=== PATIENT | male | born 1955 | race Caucasian/White ===

== ENCOUNTER → 2019-06-21 16:30 | Outpatient (BNVA) | payer MEDICARE, SELFPAY | PROVIDERS: Family Provider Family Medicine; PCP Family Medicine; Visit Provider Otolaryngology | DX: K21.9 Gastro-esophageal reflux disease without esophagitis (principal); R47.02 Dysphasia; R05 Cough; K22.2 Esophageal obstruction; F17.210 Nicotine dependence, cigarettes, uncomplicated | CPT/HCPCS: 99213; 99214 ==

== ENCOUNTER 2019-12-19 12:58 | Outpatient (CLI) | payer MEDICARE, SELFPAY ==
--- NOTE | 2019-12-19 13:04 | CT_ITS ---
WS: [id number] CT CHEST TECHNIQUE: Contrast enhanced CT of the chest with coronal and sagittal reformatted images. CLINICAL INFORMATION: CHEST PAIN ATYPICAL, COUGH, SMOKER COMPARISON: None. DLP: 746.[address] scans at [facility] use at least one of these dose optimization techniques: automat ed exposure control; mA and/or kV adjustment per patient size (includes targeted exams where dose is matched to clinical indication); or iterative reconstruction. FINDINGS: Mild chronic emphysematous changes. Lungs are well aerated. Slight bibasilar atelectasis. Calcified g ranuloma. No acute pulmonary infiltrates. No consolidation or pleural fluid. No suspicious pulmonary parenchymal abnormalities. Normal caliber thoracic aorta. Aortic calcification. Coronary calcification. No mediastinal or hilar lymphadenopathy. Thyroid gland appears normal. Normal endobronchial tree. No axillary lymphadenopathy . Adrenal glands are normal. Cholecystectomy clips. Fatty infiltration liver. Normal GE junction. Upper abdominal aorta appears normal. Mild thoracic curve with Schmorl's nodes in the mid and lower thorac ic spine. CT/CT chest w con* [id number] IMPRESSION: 1. Mild chronic emphysematous changes. No acute pulmonary infiltrates. 2. No suspicious pulmonary parenchymal abnormalities. 3. No mediastinal or hilar lymphadenopathy. 4. Normal thoracic aorta. 5. Mild diffuse fatty infiltration of the liver.
[2019-12-19 14:15] LABS: Blood Urea Nitrogen 13 mg/dL (8-23); Glomerular Filtration Rate 67.8 mL/min (90-130)
[2019-12-19] MEDS: iohexol 300 mg/mL 100 mL Btl IV (14:16)
== END 2019-12-19 12:59 | disposition home or self-care (01) ==
LOC: RADWPI 13:04
PROVIDERS: Family Provider Family Medicine; PCP Family Medicine; Visit Provider Family Medicine
DX: R07.89 Other chest pain (principal); R05 Cough; F17.200 Nicotine dependence, unspecified, uncomplicated; K76.0 Fatty (change of) liver, not elsewhere classified
CPT/HCPCS: 71260; 82565; 84520; Q9967

== ENCOUNTER 2020-09-17 13:50 | Outpatient (CLI) | payer MEDICARE, SELFPAY ==
--- NOTE | 2020-09-17 13:55 | CT_ITS ---
WS: [id number] CT CHEST TECHNIQUE: Contrast enhanced CT of the chest with coronal and sagittal reformatted images. CLINICAL INFORMATION: ATYPICAL CHEST PAIN/COUGH/SMOKER COMPARISON: None. DLP: 545.[address] scans at [facility] use at least one of these dose optimization techniques: automat ed exposure control; mA and/or kV adjustment per patient size (includes targeted exams where dose is matched to clinical indication); or iterative reconstruction. FINDINGS: Mild chronic emphysematous changes. No acute pulmonary infiltrates. Slight atelectasis in the lung ba ses. A few calcified granulomas. No focal pneumonia or pleural fluid. Normal caliber thoracic aorta. Aortic calcification. Proximal main pulmonary arteries are normal. No mediastinal or hilar lymphadenopathy. No axillary lymphadenopathy. Schmorl's nodes in the mid thoraci c spine with mild chronic anterior wedging. CT/CT chest w con* [id number] IMPRESSION: 1. Mild chronic emphysematous changes. No acute pulmonary infiltrates. 2. No suspicious pulmonary parenchymal abnormalities. 3. No mediastinal or hilar lymphadenopathy. 4. Diffuse fatty infiltration the liver. Cholecystectomy. 5. No other significant changes from previous.
[2020-09-17 14:46] LABS: Blood Urea Nitrogen 13 mg/dL (8-23); Glomerular Filtration Rate 75.5 mL/min (90-130)
[2020-09-17] MEDS: iohexol 300 mg/mL 100 mL Btl IV (15:00)
== END 2020-09-17 13:51 | disposition home or self-care (01) ==
LOC: CT 13:53
PROVIDERS: PCP Family Medicine; Visit Provider Family Medicine
DX: R05 Cough; F17.200 Nicotine dependence, unspecified, uncomplicated; R07.89 Other chest pain; K76.0 Fatty (change of) liver, not elsewhere classified; Z90.49 Acquired absence of other specified parts of digestive tract
CPT/HCPCS: 36415; 71260; 82565; 84520

== ENCOUNTER 2020-09-25 09:45 | Outpatient (CLI) | payer MEDICARE, SELFPAY ==
--- NOTE | 2020-09-25 10:00 | FL_ITS ---
WS: [id number] UPPER GI TECHNICAL: FLUOROSCOPY TIME: minutes CLINICAL INFORMATION: R47.02 - Dysphasia COMPARISON: None. FINDINGS: Swallowing: No aspiration or penetration. Esophagus: Moderate esophageal dysmotility with delayed emptying in the upright and supine positions. Evidence of reflux esophagitis. Gastroesophageal reflux: Marked reflux to the upper esophagus and hypopharynx. Stomach: Diffuse gastric rugal thickening consistent with gastritis. Normal stomach emptying. Small esophageal hiatal hernia. Duodenum: Normal duodenal C-loop. Other findings: Cholecystectomy. LA/LA upper GI series [id number] IMPRESSION: 1. Moderate esophageal dysmotility with delayed emptying upright and supine po sitions. 2. Evidence of reflux esophagitis and gastritis. 3. Small esophageal hiatal hernia. 4. Marked active reflux in the upper esophagus and hypopharynx the upright and supine positions. 5. Normal stomach emptying and normal duodenal C-loop.
== END 2020-09-25 09:46 | disposition home or self-care (01) ==
PROVIDERS: PCP Family Medicine; Visit Provider Surgery
DX: R47.02 Dysphasia (principal); K21.00 Gastro-esophageal reflux disease with esophagitis, without bleeding; K44.9 Diaphragmatic hernia without obstruction or gangrene; K29.70 Gastritis, unspecified, without bleeding
CPT/HCPCS: 74240

== ENCOUNTER → 2020-11-07 15:42 | Outpatient (BNVA) | payer MEDICARE, SELFPAY | PROVIDERS: PCP Family Medicine; Visit Provider Surgery | DX: Z01.812 Encounter for preprocedural laboratory examination (principal); Z20.822 Contact with and (suspected) exposure to COVID-19 | CPT/HCPCS: 87635 ==

== ENCOUNTER 2020-11-12 06:46 | Day surgery (SDC) | payer MEDICARE, SELFPAY ==
--- NOTE | 2020-11-12 07:24 | ANES.PREANE2 ---
Pre-Anesthetic Assessment Pre-Anesthetic Assessment: Height/Weight: Height 1.73 m Weight 72.575 kg Proposed Procedure: Operation Date: 11/12/20 08:30 Proposed Procedures p EGD [id number] Z86.010 K2.2(Not Applicable) - Clinton Shirley MD s Colonoscopy(Not Applicable) - Clinton Shirley MD Was Beta Ruth Ann taken within 24 hours: N/A Was Clonidine taken within 24 hours: N/A Social: Social History: Tobacco and No alcohol Exam: Pre-Anes Outpt Exam: alert, oriented x 3 and regular rate & rhythm Airway: Submandibular: WNL Cervical ROM: WNL MP: 2 Dentition: False (upper) Pulmonary: Pulmonary: COPD CV/HEM: CV/HEM: PVD GI: GI: GERD Metabolic: Metabolic: Hyperlipidemia Neuropsych: Neuropsych: CVA (Right facial droop) Anesthetic Plan: ASA status: 3 Anesthesia: MAC Risk of > 500 ml blood loss (7ml/kg in children): No PFSH Anesthesia PFSH: Family History Brother Cancer Sister Cancer Father Stroke Grandmother Stroke Social History Smoking and tobacco status: current every day smoker cigarettes Packs smoked per day: 1 Alcohol intake: never Data Anesthesia Cardiac Studies: No Data to Display
[2020-11-12 07:48] VITALS: BP 126/89; PULSE 69; RESP 18; TEMP 36.3; O2SAT 96
--- NOTE | 2020-11-12 08:03 | W.PM.OPSFHP ---
Same Day Surgery H&P Indication for Procedure/HPI DATE OF PROCEDURE: November 12, 2020 CHIEF COMPLAINT/INDICATIONFOR SURGICAL PROCEDURE: Difficulty in swallowing and history of polyps PREOP DIAGNOSIS: History of colon polyps PLANNED PROCEDRUE: Operation Date: 11/12/20 08:30 Proposed Procedures p EGD [id number] Z86.010 K2.2(Not Applicable) - Clinton Shirley MD s Colonoscopy(Not Applicable) - Clinton Shirley MD Patient comes today for follow-up after recent upper GI study that did show 1. Moderate esophageal dysmotility with delayed emptying upright and supine positions. 2. Evidence of reflux esophagitis and gastritis. 3. Small esophageal hiatal hernia. 4. Marked active reflux in the upper esophagus and hypopharynx the upright and supine positions. 5. Normal stomach emptying and normal duodenal C-loop. Patient continues to struggle with swallowing. Patient also gives history of colon polyps and he is due for surveillance colonoscopy. Interim history 11/12/2020 Patient comes today for diagnostic EGD and surveillance colonoscopy ROS All systems have been reviewed negative except as per the above or per problem list. Medications/Allergies* Home Medications Medication Instructions Recorded Confirmed Type albuterol sulfate 90 mcg/actuation 2 puff INHALATION Q6H PRN 06/18/19 11/10/20 History aerosol inhaler aspirin 81 mg chewable tablet 81 mg PO DAILY tab 06/18/19 11/10/20 History clopidogrel 75 mg tablet 75 mg PO DAILY tab 06/18/19 11/10/20 History pravastatin 20 mg tablet 20 mg PO DAILY tab 06/18/19 11/12/20 History trazodone 100 mg tablet 100 mg PO .at bedtime tab 06/18/19 11/12/20 History omeprazole 20 mg capsule,delayed 20 mg PO BID cap 06/21/19 11/12/20 History release Allergies/Adverse Reactions Allergy/AdvReac Type Severity Reaction Status Date / Time No Known Allergies Allergy Verified 11/10/20 10:11 Pertinent History/Comorbid Conditions* Family History (Updated 06/18/19 @ 14:55 by Britany Fitzgerald LPN) Cancer Brother Sister Stroke Father Grandmother Social History Smoking and tobacco status: current every day smoker cigarettes Packs smoked per day: 1 Alcohol intake: never Pertinent Exam Findings alert, oriented x 3, clear to auscultation bilaterally, regular rate & rhythm and procedure specific exam findings (Abdominal examination nontender nondistended soft) Recommendations Surgery/Procedure today (Diagnostic EGD and colonoscopy) Other Plans: Plan of care; After thorough history and physical examination and reviewing the chart, plan to perform a diagnostic esophagogastroduodenoscopy and surveillance colonoscopy with possible biopsy and possible polypectomy. I discussed with the patient in detail the risks,benefits,alternatives and indications.The risk of aspiration, bleeding, soft tissue injury, perforation of the stomach/esophagus/colon and other potential concomitant complications were explained to the patient in details also the potential need for Thoracotomy and or Laproscoy/Laparotomy to repair any related complications including but not limited to colectomy and or Closotomy. The patient understood this well and did agree to proceed. Rationale was carefully and clearly discussed with the patient.Appropriate informed consent have been reviewed and signed Verbal and written Instructions were given to the patient for colonoscopy prep Coding Level of Care Code Acute Pharmacy Tech Customer Service for Tyler Mcdonald
[2020-11-12] MEDS: sodium chloride 0.9% 1,000 ML 30 ML IV (08:06)
[2020-11-12 09:08] VITALS: BP 87/60; PULSE 68; RESP 16; TEMP 36.1; O2SAT 91
[2020-11-12 09:17] VITALS: BP 94/62; PULSE 62; RESP 16; O2SAT 91
--- NOTE | 2020-11-12 12:48 | ANE.PACU2 ---
Inpatient post-anesthesia follow up: Airway intact: Yes Vital signs: Temperature 97.0 F Pulse Rate 62 Respiratory Rate 16 Blood Pressure 94/62 Pulse Oximetry 91 Oxygen Delivery Me thod Room Air Oxygen Flow Rate Fraction of Inspir ed Oxygen Hydration adequate: Yes Nausea and vomiting: No Pain level: 1 Mental status: Baseline
[2020-11-13 06:16] LABS: H. Pylori / CLO Test Negative
== END 2020-11-12 10:00 | disposition home or self-care (01) ==
PROVIDERS: PCP Family Medicine; Visit Provider Surgery
PROC: 0DJ08ZZ Inspection of Upper Intestinal Tract, Via Natural or Artificial Opening Endoscopic (ICD-10-PCS; CPT 43235; principal; 2020-11-12 08:30)
PROC: 0DJD8ZZ Inspection of Lower Intestinal Tract, Via Natural or Artificial Opening Endoscopic (ICD-10-PCS; CPT 45378; 2020-11-12 08:30)
DX: Z12.11 Encounter for screening for malignant neoplasm of colon (principal); Z86.010 Personal history of colon polyps; R13.10 Dysphagia, unspecified; D12.5 Benign neoplasm of sigmoid colon; K57.30 Diverticulosis of large intestine without perforation or abscess without bleeding; K21.00 Gastro-esophageal reflux disease with esophagitis, without bleeding; K29.70 Gastritis, unspecified, without bleeding; K29.80 Duodenitis without bleeding; Z79.82 Long term (current) use of aspirin; F17.210 Nicotine dependence, cigarettes, uncomplicated; J44.9 Chronic obstructive pulmonary disease, unspecified; E78.5 Hyperlipidemia, unspecified; I69.892 Facial weakness following other cerebrovascular disease
CPT/HCPCS: 43239; 45380; 87077; 88305; 96360; J2704; J7030

== ENCOUNTER 2021-09-10 13:49 | Outpatient (CLI) | payer MEDICARE, SELFPAY ==
--- NOTE | 2021-09-10 14:15 | XR_ITS ---
WS: [id number] Exam: XR chest 2V* [id number] Date/Time of Exam: 09/10/2021 2:15 PM Reason For Exam: COPD Comparison 09/19/2018. Findings: The lungs are clear and fully expanded. Costophrenic angles are sharp. No infiltrates. Bronchovascula r relief appears normal. Cardiac silhouette is unremarkable. Bony elements are intact. XR/XR chest 2V* [id number] IMPRESSION: Unremarkable chest radiograph.
== END 2021-09-10 13:50 | disposition home or self-care (01) ==
PROVIDERS: PCP Family Medicine; Visit Provider Family Medicine
DX: J44.9 Chronic obstructive pulmonary disease, unspecified (principal)
CPT/HCPCS: 71046

== ENCOUNTER 2022-02-13 22:08 | Emergency (ER) | payer MEDICARE, SELFPAY ==
[2022-02-13 22:15] VITALS: BP 139/80; PULSE 95; RESP 16; TEMP 36.8; O2SAT 99
[2022-02-14 00:01] LABS: Lactate (Lactic Acid level) 1.2 mmol/L (0.5-2.2)
[2022-02-14 00:02] LABS: Alanine Aminotransferase 16 U/L (0-41); Albumin Level 3.9 g/dL (3.5-5.2); Alkaline Phosphatase 123 U/L (40-130); Anion Gap 15.9 (5-19); Aspartate Amino Transferase 16 U/L (0-40); Blood Urea Nitrogen 17 mg/dL (8-23); C Reactive Protein 28.9 mg/L (0.0-4.9); Carbon Dioxide 22 mmol/L (22-29); Chloride 107 mmol/L (98-107); Globulin 3.2 g/dL (1.3-4.6); Glucose 95 mg/dL (65-115); Lipase 59 U/L (13-60); Osmolality Calculated 293 mOsm/kg (285-295); Potassium 3.9 mmol/L (3.5-5.1); Sodium 141 mmol/L (136-145); Total Bilirubin 0.2 mg/dL (0.15-1.2); Total Protein 7.1 g/dL (6.6-8.7)
[2022-02-14 00:05] LABS: Basophils # 0.1 10^3/uL (0.0-0.1); Basophils % 0.6 %; Eosinophils # 0.7 10^3/uL (0.0-0.8); Eosinophils % 4.8 %; Hematocrit 30.9 % (42.0-52.0); Hemoglobin 9.7 g/dL (11.7-16.6); Lymphocytes # 1.4 10^3/uL (0.8-4.8); Lymphocytes % 9.1 %; Mean Corpuscular HGB Conc 31.4 g/dL (30.0-36.0); Mean Corpuscular Hemoglobin 30.3 pg (28.0-34.0); Mean Corpuscular Volume 96.6 fl (80-94); Mean Platelet Volume 9.8 fL (7.4-10.4); Monocytes # 1.3 10^3/uL (0.2-0.9); Monocytes % 8.2 %; Neutrophils % 76.4 %; Nucleated Red Blood Cells % 0 %; Platelet Count 554 10^3/cmm (130-400); Red Cell Distribution Width 14.3 % (12.1-15.1); White Blood Count 15.3 10^3/uL (4.0-10.0)
[2022-02-14] MEDS: morphine 4 mg/mL SDV 1 mL IVP ×3 (00:06→02:51)
[2022-02-14] MEDS: ondansetron 2 mg/ML SDV 2 mL 4 MG IVP (00:06)
--- NOTE | 2022-02-14 00:09 | CTR_ITS ---
PROCEDURE INFORMATION: Exam: CT Abdomen And Pelvis With Contrast Exam date and time: 02/14/2022 1:19 AM Age: 66 years old Clinical indication: Abdominal pain; Prior surgery; Surgery date: 6+ months; Surgery type: Cholecystectomy, lumbar; Additional info: Ruq pain TECHNIQUE: Imaging protocol: Computed tomography of the abdomen and pelvis with contrast. Radiation optimization: All CT scans at this facility use at least one of these dose optimization techniques: automated exposure control; mA and/or kV adjustment per patient size (includes targeted exams where dose is matched to clinical indication); or iterative reconstruction. Contrast material: OMNI 350; Contrast volume: 80 ml; Contrast route: INTRAVENOUS (IV); COMPARISON: CT abdomen pelvis w con* [id number] 09/19/2018 3:03 AM RADIATION DOSE METRICS: Total DLP (mGy-cm): 453.03 FINDINGS: Liver: Normal. No mass. Gallbladder and bile ducts: Cholecystectomy. Pancreas: Normal. No ductal dilation. Spleen: Normal. No splenomegaly. Adrenal glands: Normal. No mass. Kidneys and ureters: Right kidney cyst. Stomach and bowel: Mildly prominent fluid in the small bowel without dilation may reflect an enteritis. Diverticulosis without diverticulitis. Appendix: No evidence of appendicitis. Intraperitoneal space: Unremarkable. No free air. No significant fluid collection. Vasculature: Unremarkable. No abdominal aortic aneurysm. Lymph nodes: Unremarkable. No enlarged lymph nodes. Urinary bladder: Unremarkable as visualized. Reproductive: Nodular enlargement of the prostate gland. Bones/joints: Unremarkable. No acute fracture. Soft tissues: Unremarkable. CT/CT abdomen pelvis w con* [id number] IMPRESSION: 1. Mildly prominent fluid in the small bowel without dilation may reflect an enteritis. 2. Diverticulosis without diverticulitis. 3. Nodular enlargement of the prostate gland. 4. Cholecystectomy. 5. Right kidney cyst. COMMENTS: Consistent with the [employer]'s Incidental Findings Committee white paper (J Am Garry Radiol 2018): Any incidental renal lesion less than 1 cm or classified as too small to characterize, or any incidental cystic renal lesion characterized as simple-appearing, is likely benign. No follow-up imaging is recommended for these lesions per consensus recommendations based on imaging criteria.
[2022-02-14] MEDS: fentaNYL 50 mcg/mL INJ 2mL 100 MCG IVP (00:32)
[2022-02-14 00:58] LABS: Alcohol Level < 10 mg/dL (0-10)
[2022-02-14] MEDS: iohexol 350 mg/mL 100 mL Btl 80 ML IV (01:29)
[2022-02-14] MEDS: sodium chloride 0.9% 1,000 ML 999 ML IV (02:51)
[2022-02-14 03:01] LABS: Add Urine Microscopic? NO; Bilirubin Urine Neg (Negative); Blood Urine Neg (Negative); Charge for UA Resulting for Rev; Glucose Urine UA Norm (Normal); Ketones Urine Negative (Negative); Leukocyte Esterase Urine Negative (Negative); Nitrate Urine Negative (Negative); Protein Urine Neg (Negative); Specific Gravity, Urine 1.015 (1.005-1.030); Urine Appearance Clear (CLEAR); Urine Color Yellow (Yellow); Urobilinogen Urine 1 mg/dL (Negative); pH Urine 6 (5-7)
[2022-02-14] MEDS: ketorolac 30 mg/mL INJ IVP (03:20)
--- NOTE | 2022-02-14 17:21 | W.ED.ABDPA2 ---
HPI - Abdominal Pain General: Chief Complaint: Abdominal Pain Stated Complaint: abdomen pain Time Seen by Provider: 02/13/22 23:37 History of Present Illness: 66 year old male gentleman with a history of right sided abdominal pain for the last three days. He notes that he vomited several times today. No blood in the urine. No diarrhea. No one else has been sick. He has a history of cholecystectomy, but no other belly surgery. MD elicited complaint: abdominal pain Pertinent past history: none Onset (ago): day(s) (3) Pain Consistency: intermittent Location: RLQ Severity: moderate Quality: cramping and stabbing Radiation: none Migration to: R flank Exacerbating factors: nothing Relieving factors: nothing Associated Symptoms: Reports nausea and vomiting; Denies coffee ground emesis, constipation, diarrhea and fever(s) Review of Systems Const: Denies: fever(s) Card: Denies: chest pain Resp: Denies: dyspnea GI: Reports: abdominal pain, nausea and vomiting; Denies: coffee ground emesis, diarrhea or constipation : Reports: flank pain Musc: Denies: back pain Skin/Breast: Denies: rash Neuro: Denies: headache(s) PFSH ED PFSH: Medical History Diverticulosis Duodenitis Dysphagia as late effect of cerebrovascular disease Esophageal stricture Gastritis Family History Brother Cancer Sister Cancer Father Stroke Grandmother Stroke Social History Smoking and tobacco status: current every day smoker cigarettes Packs smoked per day: 1 Alcohol intake: never Physical Exam Const: GENERAL APPEARANCE: cooperative and ill appearing (mildly); not comfortable and not frail appearing HENMT: COMMON NORMALS: Normal external nose present NOSE: Normal external nose present Eye: GENERAL EYE: other (Left eye absent) Chest: CHEST: Yes Symmetrical chest wall rise Resp: COMMON NORMALS: normal respiratory effort, No use of accessory muscles and clear to auscultation bilaterally AUSCULTATION: clear to auscultation bilaterally Cardio: COMMON NORMALS: regular rate and regular rhythm RATE: regular rate RHYTHM: regular rhythm GI: COMMON NORMALS: Normal to inspection, nondistended, normoactive bowel sounds present PALPATION: Yes Tenderness to palpation present (GI) Details: RLQ and Yes Guarding due to palpation present (GI) Extremity: COMMON NORMALS: no pedal edema Neuro: LUCIA COMA SCALE: document GCS findings Lucia coma scale eye opening: Spontaneous Lucia coma scale verbal response: Orientated Lucia coma scale motor response: Obey commands Lucia coma scale total score: 15 Course Vital Signs: Vital signs: Vital Signs Temperature 98.2 F 02/13/22 22:15 Pulse Rate 95 02/13/22 22:15 Respiratory Rate 16 02/13/22 22:15 Blood Pressure 139/80 02/13/22 22:15 Pulse Oximetry 99 02/13/22 22:15 MDM - Abdominal Pain Medical Decision Making This patient has a significant amount of belly pain. He was given multiple doses of pain medication to control his pain in the ER. No vomiting here. His vitals have been stable. he is afebrile. His hemoglobin is 9.7. He does have a Leukocytosis of 15.3. CMP is not remarkable. CT of the belly reveals only mildly prominent fluid in the small bowel. There is a right renal cyst, which does not appear to be hemorrhagic. No definite cause of his pain is found by CT. Pain is more controlled. He'll be given symptomatic treatment, and asked to follow up. Due to the severity of symptoms and leukocytosis, he'll be covered with antibiotics. Warning signs were given. Lab Data : 02/13/22 23:30 02/13/22 23:30 Labs/Radiology: Radiology Impressions Abdomen/Pelvis CT 02/14/22 00:09 IMPRESSION: 1. Mildly prominent fluid in the small bowel without dilation may reflect an enteritis. 2. Diverticulosis without diverticulitis. 3. Nodular enlargement of the prostate gland. 4. Cholecystectomy. 5. Right kidney cyst. COMMENTS: Consistent with the [employer]'s Incidental Findings Committee white paper (J Am Garry Radiol 2018): Any incidental renal lesion less than 1 cm or classified as too small to characterize, or any incidental cystic renal lesion characterized as simple-appearing, is likely benign. No follow-up imaging is recommended for these lesions per consensus recommendations based on imaging criteria. Laboratory Results WBC 15.3 10^3/uL (4.0-10.0) H 02/13/22 23:30 RBC 3.20 10^6/uL (4.1-5.3) L 02/13/22 23: Hgb 9.7 g/dL (11.7-16.6) L 02/13/22 23: Hct 30.9 % (42.0-52.0) L 02/13/22 23: MCV 96.6 fl (80-94) H 02/13/22 23: MCH 30.3 pg (28.0-34.0) 02/13/22 23: MCHC 31.4 g/dL (30.0-36.0) 02/13/22 23: RDW 14.3 % (12.1-15.1) 02/13/22: Plt Count 554 10^3/cmm (130-400) H 02/13/22 23: MPV 9.8 fL (7.4-10.4) 02/13/22 23: Neut % (Auto) 76.4 % 02/13/22 23: Lymph % (Auto) 9.1 % 02/13/22 23: Casey % (Auto) 8.2 % 02/13/22 23: Eos % (Auto) 4.8 % 02/13/22 23: Baso % (Auto) 0.6 % 02/13/22: Neut # (Auto) 11.70 10^3/uL (1.8-7.7) H 02/13/22 23: Lymph # (Auto) 1.4 10^3/uL (0.8-4.8) 02/13/22: Casey # (Auto) 1.3 10^3/uL (0.2-0.9) H 02/13/22 23:30 Eos # (Auto) 0.7 10^3/uL (0.0-0.8) 02/13/22: Baso # (Auto) 0.1 10^3/uL (0.0-0.1) 02/13/22: Nucleated RBC % (auto) 0 % 02/13/22: Nucleated RBCs # 0.0 /100WBC 02/13/22 23: Sodium 141 mmol/L (136-145) 02/13/22: Potassium 3.9 mmol/L (3.5-5.1) 02/13/22 23:30 Chloride 107 mmol/L (98-107) 02/13/22 23:30 Carbon Dioxide 22 mmol/L (22-29) 02/13/22 23:30 Anion Gap 15.9 (5-19) 02/13/22 23:30 BUN 17 mg/dL (8-23) 02/13/22 23:30 Creatinine 0.9 mg/dL (0.7-1.2) 02/13/22 23:30 GFR Calculation 85.0 mL/min (90-130) L 02/13/22 23:30 Glucose 95 mg/dL (65-115) 02/13/22 23:30 Calculated Osmolality 293 mOsm/kg (285-295) 02/13/22 23:30 Lactate 1.2 mmol/L (0.5-2.2) 02/13/22 23:30 Calcium 9.0 mg/dL (8.5-10.5) 02/13/22 23:30 Total Bilirubin 0.2 mg/dL (0.15-1.2) 02/13/22 23:30 AST 16 U/L (0-40) 02/13/22 23:30 ALT 16 U/L (0-41) 02/13/22 23:30 Alkaline Phosphatase 123 U/L (40-130) 02/13/22 23:30 C-Reactive Protein 28.9 mg/L (0.0-4.9) H 02/13/22 23:30 Total Protein 7.1 g/dL (6.6-8.7) 02/13/22 23:30 Albumin 3.9 g/dL (3.5-5.2) 02/13/22 23:30 Globulin 3.2 g/dL (1.3-4.6) 02/13/22 23:30 Lipase 59 U/L (13-60) 02/13/22 23:30 Urine Color Yellow (Yellow) 02/14/22 02:55 Urine Appearance Clear (CLEAR) 02/14/22 02:55 Urine pH 6 (5-7) 02/14/22 02:55 Ur Specific Perry 1.015 (1.005-1.030) 02/14/22 02:55 Urine Protein Neg (Negative) 02/14/22 02:55 Urine Glucose (UA) Norm (Normal) 02/14/22 02:55 Urine Ketones Negative (Negative) 02/14/22 02:55 Urine Blood Neg (Negative) 02/14/22 02:55 Urine Nitrate Negative (Negative) 02/14/22 02:55 Urine Bilirubin Neg (Negative) 02/14/22 02:55 Urine Urobilinogen 1 mg/dL (Negative) H 02/14/22 02:55 Ur Leukocyte Esterase Negative (Negative) 02/14/22 02:55 Ethyl Alcohol < 10 mg/dL (0-10) 02/13/22 23:30 Discharge Plan Discharge Patient Disposition: Home Clinical Impression: Gastroenteritis Condition: Stable Prescriptions: New hydrocodone-acetaminophen 5-325 mg tablet 1 tab PO Q8H PRN (Reason: pain) Qty: 10 0RF ondansetron 4 mg film 4 mg PO DAILY PRN (Reason: nausea and vomiting) Qty: 10 0RF ciprofloxacin HCl 500 mg tablet 500 mg PO BID Qty: 14 0RF metronidazole 500 mg tablet 250 mg PO TID Qty: 21 0RF No Action clopidogrel [Plavix] 75 mg tablet 75 mg PO DAILY Hold Instructions: Resume on 11/17/20. aspirin 81 mg tablet,chewable 81 mg PO DAILY Hold Instructions: Resume on 11/19/20. pravastatin 20 mg tablet 20 mg PO DAILY albuterol sulfate [ProAir HFA] 90 mcg/actuation HFA aerosol inhaler 2 puff INHALATION Q6H PRN (Reason: Wheezing) trazodone 100 mg tablet 100 mg PO .at bedtime omeprazole 20 mg capsule,delayed release(DR/EC) 20 mg PO DAILY erythromycin 250 mg tablet 250 mg PO BID Qty: 60 12RF Rx Instructions: prior to breakfast and supper. Anoro Ellipta 62.5-25 mcg/actuation blister with device 1 inh inhalation DAILY Carafate 1 gram tablet 1 g PO TID 84 Days Qty: 252 2RF Discharge Orders: Discharge ED (Routine); Ordered 02/14/22 Ordered By: Andrew Syed Referrals: Gamaliel Alcazar MD [Primary Care Provider] - 1-3 days Patient Instructions: Gastroenteritis (ED), Opioid Safety Activity Restrictions/Additional Instructions: You should have your blood count checked on Tuesday at your doctors office. Medications as directed. Return for worsening pain despite treatment, passing blood or clots in the stool, vomiting liquids or medications, fever greater than 100, mental status changes, any other concerning problems Coding Level of Care Code ED Training Program Assistant for Tyler Mcdonald
== END 2022-02-14 03:54 | disposition home or self-care (01) ==
PROVIDERS: Emergency Provider Emergency Medicine; PCP Family Medicine
DX: K52.9 Noninfective gastroenteritis and colitis, unspecified (principal); Z79.02 Long term (current) use of antithrombotics/antiplatelets; Z79.82 Long term (current) use of aspirin; F17.210 Nicotine dependence, cigarettes, uncomplicated
CPT/HCPCS: 74177; 80053; 80307; 81003; 83605; 83690; 85025; 86140; 96374; 96375; 99285; J1885; J2270; J2405; J3010; J7030; Q9967

== ENCOUNTER → 2022-02-16 13:27 | Outpatient (BNVA) | payer MEDICARE, SELFPAY | PROVIDERS: PCP Family Medicine; Visit Provider Family Medicine | DX: I69.991 Dysphagia following unspecified cerebrovascular disease (principal); K52.9 Noninfective gastroenteritis and colitis, unspecified | CPT/HCPCS: 80053; 85025; 86140 ==

== ENCOUNTER 2022-02-22 13:32 | Observation (INO) | payer MEDICARE, SELFPAY ==
[2022-02-22] VITALS (14 sets, daily range): BP systolic 126–167; BP diastolic 77–101; PULSE 83–95; RESP 15–25; TEMP 36.6–36.9; O2SAT 18–99; BMI 24.3
[2022-02-22 14:34] LABS: Basophils # 0.1 10^3/uL (0.0-0.1); Basophils % 0.5 %; Eosinophils # 0.2 10^3/uL (0.0-0.8); Eosinophils % 1.5 %; Hematocrit 21.6 % (42.0-52.0); Hemoglobin 6.6 g/dL (11.7-16.6); Lymphocytes # 1.8 10^3/uL (0.8-4.8); Mean Corpuscular HGB Conc 30.6 g/dL (30.0-36.0); Mean Corpuscular Volume 98.2 fl (80-94); Mean Platelet Volume 9.6 fL (7.4-10.4); Monocytes # 1.3 10^3/uL (0.2-0.9); Monocytes % 8.5 %; Neutrophils # 11.18 10^3/uL (1.8-7.7); Neutrophils % 76.1 %; Nucleated Red Blood Cells % 0 %; Platelet Count 596 10^3/cmm (130-400); White Blood Count 14.7 10^3/uL (4.0-10.0)
[2022-02-22 14:43] LABS: Add Urine Microscopic? YES; Bilirubin Urine Neg (Negative); Blood Urine Neg (Negative); Glucose Urine UA Norm (Normal); Ketones Urine Negative (Negative); Leukocyte Esterase Urine 1+ (Negative); Nitrate Urine Negative (Negative); Protein Urine Neg (Negative); Urine Appearance Clear (CLEAR); Urine Color Yellow (Yellow); Urobilinogen Urine Norm (Negative); pH Urine 6 (5-7)
[2022-02-22 14:49] LABS: Bacteria Urine TRACE /hpf; RBC Urine RARE /hpf (0-2); Squamous Epithelial Cell Urine 0-4 /hpf (0-5)
[2022-02-22 14:50] LABS: Add Urine Culture? No; Mucus Urine 1+ /hpf
[2022-02-22 14:54] LABS: Alanine Aminotransferase 23 U/L (0-41); Albumin Level 3.6 g/dL (3.5-5.2); Alkaline Phosphatase 104 U/L (40-130); Aspartate Amino Transferase 22 U/L (0-40); Blood Urea Nitrogen 13 mg/dL (8-23); Calcium 8.7 mg/dL (8.5-10.5); Carbon Dioxide 23 mmol/L (22-29); Chloride 103 mmol/L (98-107); Globulin 3.3 g/dL (1.3-4.6); Glomerular Filtration Rate 75.2 mL/min (90-130); Glucose 131 mg/dL (65-115); Lipase 41 U/L (13-60); Osmolality Calculated 286 mOsm/kg (285-295); Sodium 137 mmol/L (136-145); Total Bilirubin 0.2 mg/dL (0.15-1.2); Total Protein 6.9 g/dL (6.6-8.7)
--- NOTE | 2022-02-22 14:59 | CTR_ITS ---
PROCEDURE INFORMATION: Exam: CT Abdomen And Pelvis With Contrast Exam date and time: 02/22/2022 3:48 PM Age: 66 years old Clinical indication: Abdominal pain; Generalized; Prior surgery; Surgery date: 6+ months; Surgery type: Gb; Additional info: Abd pain RT sided x 10 days TECHNIQUE: Imaging protocol: Computed tomography of the abdomen and pelvis with contrast. Radiation optimization: All CT scans at this facility use at least one of these dose optimization techniques: automated exposure control; mA and/or kV adjustment per patient size (includes targeted exams where dose is matched to clinical indication); or iterative reconstruction. Contrast material: OMNIPAQUE 350; Contrast volume: 50 ml; Contrast route: INTRAVENOUS (IV); COMPARISON: CT abdomen pelvis w con* [id number] 02/14/2022 1:19 AM RADIATION DOSE METRICS: Total DLP (mGy-cm): 445.43 FINDINGS: Liver: Normal. No mass. Gallbladder and bile ducts: Stable cholecystectomy. Pancreas: Normal. No ductal dilation. Spleen: Normal. No splenomegaly. Adrenal glands: Normal. No mass. Kidneys and ureters: Right renal hypodensity measuring < 1.0 cm , too small to further characterize. Stomach and bowel: Bulky 5.1 x 4.8 x 3.4 cm soft tissue mass in the anterior portion of the gastric cardia with extension into the perigastric fat most consistent with neoplasm. Appendix: No evidence of appendicitis. Intraperitoneal space: Unremarkable. No free air. No significant fluid collection. Vasculature: Calcification of the abdominal aorta and/or iliac arteries consistent with atherosclerotic vessel disease. One or more calcified pelvic phleboliths. Lymph nodes: 3.9 x 3.5 x 3.9 cm direct extension of tumor into the fat between the stomach and liver versus moderate gastrohepatic ligament metastatic lymphadenopathy. 1.8 cm lymph node to the left of the SMA origin in the periaortic area which could represent lymph node metastasis. Urinary bladder: Unremarkable as visualized. Reproductive: Unremarkable as visualized. Bones/joints: Unremarkable. No acute fracture. Soft tissues: Unremarkable. CT/CT abdomen pelvis w con* [id number] IMPRESSION: 1. Bulky 5.1 x 4.8 x 3.4 cm soft tissue mass in the anterior portion of the gastric cardia with extension into the perigastric fat anteriorly most consistent with gastric neoplasm. 2. 3.9 x 3.5 x 3.9 cm direct extension of tumor into the fat between the stomach and liver versus moderate gastrohepatic ligament metastatic lymphadenopathy. 3. 1.8 cm lymph node to the left of the SMA origin in the periaortic area which could represent lymph node metastasis. Axial series 3, image 23.
--- NOTE | 2022-02-22 15:16 | PC.PHAR ---
pts verified pts medications-states the pt stop taking cipro 500mg bid,metronidazole 250mg tid and norco 5-325mg q8h prn on tue02/20/22-states the pt thought it was making his stomach hurt worse-pts wifes states the pts clarithromycin 500mg bid was dced on 02/16/22-
--- NOTE | 2022-02-22 15:29 | W.ED.GENADLT ---
HPI - General Adult General: Chief complaint: Abdominal Pain Stated complaint: ABD Pain-sent from dr kemp Time Seen by Provider: 02/22/22 14:38 History of Present Illness: Second week ofPatient is a 66-year-old male emergency room with complaints of upper abdominal pain for the last 3 days. Patient tells me he has been having symptoms of for the last few days now worsening. Patient denies any chest pain, shortness breath or palpitation. Patient reports that the pain is not worse with p.o. intake. Patient's pain is constant intermittent and colicky. Patient denies any nausea or vomiting, fever or chills, diarrhea melena/hematochezia. No Gu complaints. Onset: 3 days ago Duration:3 days Location:home Severity:moderate Associated symptoms: Deny chest pain, dyspnea, nausea, rash, palpitations or vomiting Review of Systems Const: Denies: fever(s) or chills Eyes: Denies: change in vision ENMT: Denies: mouth pain Card: Denies: chest pain or palpitations Resp: Denies: dyspnea or non-productive cough GI: Reports: abdominal pain (+upper abd pain); Denies: nausea, vomiting or diarrhea : Denies: dysuria Musc: Denies: extremity pain Skin/Breast: Denies: rash or new lesions Neuro: Denies: weakness in extremities Psych: Reports: other (Normal mood) Joseph/Lymph: Denies: easy bruising PFS ED PFSH: Medical History Diverticulosis Duodenitis Dysphagia as late effect of cerebrovascular disease Esophageal stricture Gastritis Family History Brother Cancer Sister Cancer Father Stroke Grandmother Stroke Social History Smoking and tobacco status: current every day smoker cigarettes Packs smoked per day: 1 Alcohol intake: never Physical Exam Const: COMMON NORMALS: alert HENMT: COMMON NORMALS: atraumatic HEAD & SCALP: atraumatic MOUTH: moist mucous membranes not abnormal Eye: COMMON NORMALS: EOMs intact bilaterally and conjunctivae normal CONJUNCTIVA: Yes conjunctivae normal Neck/C-Spine: COMMON NORMALS: full ROM and supple Resp: COMMON NORMALS: normal respiratory effort and clear to auscultation bilaterally AUSCULTATION: clear to auscultation bilaterally Cardio: COMMON NORMALS: regular rate RATE: regular rate GI: COMMON NORMALS: Soft to palpation PALPATION: Yes Soft to palpation OTHER: +moderate RUQ and midepigastric focal TTP. NO guarding rebound, guarding, rigidity. No CVA tenderness to percussion. Neg Ta/Neg McBurney's point tenderness, no suprabupic tenderness to palpation. Extremity: COMMON NORMALS: full ROM Neuro: SENSORIUM/ORIENTATION: Yes alert MOTOR EXAM: No Abnormal motor strength present and Other motor observations present (no focal motor deficits) Psych: COMMON NORMALS: speech normal SPEECH: Yes normal speech MOOD & AFFECT: Yes euthymic mood Course Vital Signs: Vital signs: Vital Signs Temperature 98.4 F 02/22/22 17:41 Pulse Rate 94 02/22/22 17:41 Respiratory Rate 19 H 02/22/22 17:41 Blood Pressure 133/101 02/22/22 17:41 Pulse Oximetry 99 02/22/22 17:41 Oxygen Delivery Oh thod 02/22/22 13:45 [facility] - General Adult Medical Decision Making Patient is a 66-year-old male emergency room with complaints of upper abdominal pain. On exam, patient is hemodynamically stable. Patient has moderate tenderness to plapation in the epigastric, left upper quadrant and right upper quadrant without any guarding or rebound tenderness. Patient is not jaundiced today. White count 14.7. Hemoglobin 6.6 which is decreased from 8.8 on 02/18/2022. CT abdomen pelvis showed possible neoplastic mass of the stomach with erosion into the liver. I suspect this is the source of patient's bleeding. Patient received 2 units of PRBC in the ED. Patient also received Protonix in the ED. I discussed case with Dr. Iraheta who will perform EGD in the AM. Disposition: admission Lab Data : 02/22/22 13:42 02/22/22 13:42 Radiology Impressions Abdomen/Pelvis CT 02/22/22 14:59 IMPRESSION: 1. Bulky 5.1 x 4.8 x 3.4 cm soft tissue mass in the anterior portion of the gastric cardia with extension into the perigastric fat anteriorly most consistent with gastric neoplasm. 2. 3.9 x 3.5 x 3.9 cm direct extension of tumor into the fat between the stomach and liver versus moderate gastrohepatic ligament metastatic lymphadenopathy. 3. 1.8 cm lymph node to the left of the SMA origin in the periaortic area which could represent lymph node metastasis. Axial series 3, image 23. Laboratory Results WBC 14.7 10^3/uL (4.0-10.0) H 02/22/22 13:42 RBC 2.20 10^6/uL (4.1-5.3) L 02/22/22 13:42 Hgb 6.6 g/dL (11.7-16.6) L 02/22/22 13:42 Hct 21.6 % (42.0-52.0) L 02/22/22 13:42 MCV 98.2 fl (80-94) H 02/22/22 13:42 MCH 30.0 pg (28.0-34.0) 02/22/22 13:42 MCHC 30.6 g/dL (30.0-36.0) 02/22/22 13:42 RDW 15.0 % (12.1-15.1) 02/22/22 13:42 Plt Count 596 10^3/cmm (130-400) H 02/22/22 13:42 MPV 9.6 fL (7.4-10.4) 02/22/22 13:42 Neut % (Auto) 76.1 % 02/22/22 13:42 Lymph % (Auto) 12.0 % 02/22/22 13:42 [place] % (Auto) 8.5 % 02/22/22 13:42 Eos % (Auto) 1.5 % 02/22/22 13:42 Baso % (Auto) 0.5 % 02/22/22 13:42 Neut # (Auto) 11.18 10^3/uL (1.8-7.7) H 02/22/22 13:42 Lymph # (Auto) 1.8 10^3/uL (0.8-4.8) 02/22/22 13:42 [place] # (Auto) 1.3 10^3/uL (0.2-0.9) H 02/22/22 13:42 Eos # (Auto) 0.2 10^3/uL (0.0-0.8) 02/22/22 13:42 Baso # (Auto) 0.1 10^3/uL (0.0-0.1) 02/22/22 13:42 Nucleated RBC % (auto) 0 % 02/22/22 13:42 Nucleated RBCs # 0.0 /100WBC 02/22/22 13:42 Sodium 137 mmol/L (136-145) 02/22/22 13:42 Potassium 4.0 mmol/L (3.5-5.1) 02/22/22 13:42 Chloride 103 mmol/L (98-107) 02/22/22 13:42 Carbon Dioxide 23 mmol/L (22-29) 02/22/22 13:42 Anion Gap 15.0 (5-19) 02/22/22 13:42 BUN 13 mg/dL (8-23) 02/22/22 13:42 Creatinine 1.0 mg/dL (0.7-1.2) 02/22/22 13:42 GFR Calculation 75.2 mL/min (90-130) L 02/22/22 13:42 Glucose 131 mg/dL (65-115) H 02/22/22 13:42 Calculated Osmolality 286 mOsm/kg (285-295) 02/22/22 13:42 Calcium 8.7 mg/dL (8.5-10.5) 02/22/22 13:42 Total Bilirubin 0.2 mg/dL (0.15-1.2) 02/22/22 13:42 AST 22 U/L (0-40) 02/22/22 13:42 ALT 23 U/L (0-41) 02/22/22 13:42 Alkaline Phosphatase 104 U/L (40-130) 02/22/22 13:42 Total Protein 6.9 g/dL (6.6-8.7) 02/22/22 13:42 Albumin 3.6 g/dL (3.5-5.2) 02/22/22 13:42 Globulin 3.3 g/dL (1.3-4.6) 02/22/22 13:42 Lipase 41 U/L (13-60) 02/22/22 13:42 Urine Color Yellow (Yellow) 02/22/22 14:10 Urine Appearance Clear (CLEAR) 02/22/22 14:10 Urine pH 6 (5-7) 02/22/22 14:10 Ur Specific [place] 1.010 (1.005-1.030) 02/22/22 14:10 Urine Protein Neg (Negative) 02/22/22 14:10 Urine Glucose (UA) Norm (Normal) 02/22/22 14:10 Urine Ketones Negative (Negative) 02/22/22 14:10 Urine Blood Neg (Negative) 02/22/22 14:10 Urine Nitrate Negative (Negative) 02/22/22 14:10 Urine Bilirubin Neg (Negative) 02/22/22 14:10 Urine Urobilinogen Norm mg/dL (Negative) 02/22/22 14:10 Ur Leukocyte Esterase 1+ (Negative) H 02/22/22 14:10 Urine RBC Rare /hpf (0-2) 02/22/22 14:10 Urine WBC 5-10 /hpf (0-5) H 02/22/22 14:10 Ur Squamous Epith Cells 0-4 /hpf (0-5) H 02/22/22 14:10 Amorphous Sediment Not Reportable 02/22/22 14:10 Urine Bacteria Trace /hpf (NONE) 02/22/22 14:10 Urine Mucus 1+ /hpf 02/22/22 14:10 Blood Type A Positive 02/22/22 15:30 Rho(D) Type Positive 02/22/22 15:30 Antibody Screen Negative 02/22/22 15:30 Crossmatch See Detail 02/22/22 15:30 Imaging Data Other Imaging: Radiologist's impression: [address] [address] [address] Scan Report Signed Patient: Molina Hayward Unit #: [id number] : 1955 Age/Sex: 66 / M ADM Date: 02/22/22 Loc: ER Room/Bed: Attending Dr: Ordering Provider/Ordering MD: Janelle Allison MD Date of Service: 02/22/22 Procedure(s): CT abdomen pelvis w con* [id number] Accession Number(s): [id number] Report Number: [id number] PROCEDURE INFORMATION: Exam: CT Abdomen And Pelvis With Contrast Exam date and time: 02/22/2022 3:48 PM Age: 66 years old Clinical indication: Abdominal pain; Generalized; Prior surgery; Surgery date: 6+ months; Surgery type: Gb; Additional info: Abd pain RT sided x 10 days TECHNIQUE: Imaging protocol: Computed tomography of the abdomen and pelvis with contrast. Radiation optimization: All CT scans at this facility use at least one of these dose optimization techniques: automated exposure control; mA and/or kV adjustment per patient size (includes targeted exams where dose is matched to clinical indication); or iterative reconstruction. Contrast material: OMNIPAQUE 350; Contrast volume: 50 ml; Contrast route: INTRAVENOUS (IV);? COMPARISON: CT abdomen pelvis w con* [id number] 02/14/2022 1:19 AM RADIATION DOSE METRICS: Total DLP (mGy-cm): 445.43 FINDINGS: Liver: Normal. No mass. Gallbladder and bile ducts: Stable cholecystectomy. Pancreas: Normal. No ductal dilation. Spleen: Normal. No splenomegaly. Adrenal glands: Normal. No mass. Kidneys and ureters: Right renal hypodensity measuring < 1.0 cm , too small to further characterize. Stomach and bowel: Bulky 5.1 x 4.8 x 3.4 cm soft tissue mass in the anterior portion of the gastric cardia with extension into the perigastric fat most consistent with neoplasm. Appendix: No evidence of appendicitis. Intraperitoneal space: Unremarkable. No free air. No significant fluid collection. Vasculature: Calcification of the abdominal aorta and/or iliac arteries consistent with atherosclerotic vessel disease. One or more calcified pelvic phleboliths. Lymph nodes: 3.9 x 3.5 x 3.9 cm direct extension of tumor into the fat between the stomach and liver versus moderate gastrohepatic ligament metastatic lymphadenopathy. 1.8 cm lymph node to the left of the SMA origin in the periaortic area which could represent lymph node metastasis. Urinary bladder: Unremarkable as visualized. Reproductive: Unremarkable as visualized. Bones/joints: Unremarkable. No acute fracture. Soft tissues: Unremarkable. CT/CT abdomen pelvis w con* [id number] IMPRESSION: 1. Bulky 5.1 x 4.8 x 3.4 cm soft tissue mass in the anterior portion of the gastric cardia with extension into the perigastric fat anteriorly most consistent with gastric neoplasm. 2. 3.9 x 3.5 x 3.9 cm direct extension of tumor into the fat between the stomach and liver versus moderate gastrohepatic ligament metastatic lymphadenopathy. 3. 1.8 cm lymph node to the left of the SMA origin in the periaortic area which could represent lymph node metastasis.? Axial series 3, image 23. ? Dictated By: Ralf Muñoz MD Signed By: Ralf Muñoz MD Signed Date/Time: 02/22/22 1646 DD/ 1548 Discharge Plan Discharge Condition: Stable Prescriptions: No Action clopidogrel [Plavix] 75 mg tablet 75 mg PO BEDTIME Hold Instructions: Resume on 11/17/20. aspirin 81 mg tablet,chewable 81 mg PO BEDTIME Hold Instructions: Resume on 11/19/20. pravastatin 20 mg tablet 20 mg PO BEDTIME albuterol sulfate [ProAir HFA] 90 mcg/actuation HFA aerosol inhaler 2 puff INHALATION Q4H PRN (Reason: Shortness Of Breath) trazodone 100 mg tablet 100 mg PO BEDTIME omeprazole 20 mg capsule,delayed release(DR/EC) 20 mg PO BEDTIME Anoro Ellipta 62.5-25 mcg/actuation blister with device 1 inh inhalation DAILY sucralfate [Carafate] 1 gram tablet 1 g PO TID 84 Days Qty: 252 2RF hydrocodone-acetaminophen 5-325 mg tablet 1 tab PO Q8H PRN (Reason: pain) Qty: 10 0RF ondansetron 4 mg film 4 mg PO DAILY PRN (Reason: nausea and vomiting) Qty: 10 0RF ciprofloxacin HCl 500 mg tablet 500 mg PO BID Qty: 14 0RF metronidazole 500 mg tablet 250 mg PO TID Qty: 21 0RF iron 325 mg (65 mg iron) Tablet 325 mg PO BID Referrals: Gamaliel Kemp MD [Primary Care Provider] - Coding Level of Care Code ED Die Reamer for Chg Fwd Exam Comprehensive
[2022-02-22] MEDS: iohexol 350 mg/mL 100 mL Btl IV (15:46)
[2022-02-22] MEDS: sodium chloride 0.9% 100 mL Bag 50 ML IV (17:34)
[2022-02-22] MEDS: pantoprazole 40 mg SDV 80 MG IVP (19:39)
--- NOTE | 2022-02-22 19:47 | P.HP_ITS ---
Providers/Chief Complaint Primary Care Provider: Gamaliel Alcazar MD Chief Complaint: ABD Pain-sent from dr alcazar History of Present Illness Molina Hayward is a 66 year old male with a current history of smoking, COPD, history of iron deficiency anemia, history of stroke on aspirin and Plavix, who presents [facility] due to fatigue, malaise, right upper quadrant abdominal pain, epigastric abdominal pain, anemia. Patient tells me that he has had developing fatigue, malaise and developing right upper quadrant abdominal pain epigastric pain. He also tells me he is lost about 5 pounds in the last month or so. He denies any bloody or black stools. No hematemesis. He presented to his primary care provider's office was found to be anemic, sent to the emergency room for further evaluation. In the emergency room he was found to anemia hemoglobin 6.6, hemodynamically stable, CT scan showed anterior gastric mass, with evidence of metastasis, ER provider has contacted Dr. Marshall for scoping. Currently patient is alert oriented x3, following all commands, on room air, denies any bloody or black stools, no hematemesis, no lightheadedness, dizziness, no hemodynamic compromise Review of Systems Const: Reports: fatigue and malaise; Denies: fever(s) Card: Denies: chest pain Resp: Denies: dyspnea GI: Reports: abdominal pain Medications/Allergies Home Medications Medication Instructions Recorded Confirmed Last Taken Type albuterol sulfate 90 mcg/actuation 2 puff inhalation Q4H PRN 06/18/19 02/22/22 Unknown History aerosol inhaler (ProAir HFA) Shortness Of Breath aspirin 81 mg chewable tablet 81 mg PO BEDTIME 06/18/19 02/22/22 02/21/22 History clopidogrel 75 mg tablet (Plavix) 75 mg PO BEDTIME 06/18/19 02/22/22 02/21/22 History pravastatin 20 mg tablet 20 mg PO BEDTIME 06/18/19 02/22/22 02/21/22 History trazodone 100 mg tablet 100 mg PO BEDTIME 06/18/19 02/22/22 02/21/22 History sucralfate 1 gram tablet (Carafate) 1 g PO TID 12 weeks #252 tabs 11/12/20 02/22/22 02/22/22 Rx umeclidinium 62.5 mcg-vilanterol 1 inh inhalation DAILY 01/28/22 02/22/22 Unknown History 25 mcg/actuation powdr for inhalation (Anoro Ellipta) omeprazole 20 mg capsule,delayed 20 mg PO BEDTIME 02/01/22 02/22/22 02/21/22 History release ciprofloxacin HCl 500 mg tablet 500 mg PO BID #14 tabs 02/14/22 02/22/22 02/20/22 Rx hydrocodone 5 mg-acetaminophen 325 1 tab PO Q8H PRN pain #10 tabs 02/14/22 02/22/22 02/13/22 Rx mg tablet metronidazole 500 mg tablet 250 mg PO TID #21 tabs 02/14/22 02/22/22 02/20/22 Rx ondansetron 4 mg oral soluble film 4 mg PO DAILY PRN nausea and 02/14/22 02/22/22 Unknown Rx vomiting #10 ea ferrous sulfate 325 mg (65 mg 325 mg PO BID 02/22/22 02/22/22 02/22/22 History iron) tablet (iron) Allergies Allergy/AdvReac Type Severity Reaction Status Date / Time metoclopramide [From Reglan] Allergy Intermediate extrapyrami Verified 02/22/22 15:11 susy PFSH Acute PFSH: Medical History (Updated 02/22/22 @ 19:54 by Alex Lindo MD) CVA (cerebral vascular accident) Diverticulosis Duodenitis Dysphagia as late effect of cerebrovascular disease Esophageal stricture Gastritis Surgical History (Updated 02/22/22 @ 19:54 by Alex Lindo MD) History of cholecystectomy History of eye surgery History of spinal surgery Family History Brother Cancer Sister Cancer Father Stroke Grandmother Stroke Social History Smoking and tobacco status: current every day smoker cigarettes Packs smoked per day: 1 Alcohol intake: never Vitals/I&O/Wt Last Vital Signs Temp 98.1 F 02/22/22 17:56 Pulse 89 02/22/22 18:56 Resp 15 02/22/22 18:56 BP 167/79 02/22/22 18:56 Pulse Ox 99 02/22/22 18:56 O2 Del Method 02/22/22 13:45 02/22/22 02/22/22 02/22/22 06:59 14:59 22:59 Intake Total 0 / 0 Balance 0 / 0 Weight last 48 hrs Weight 72.575 kg Physical Exam Const: COMMON NORMALS: no acute distress and patient oriented x3 HENMT: COMMON NORMALS: normocephalic HEAD & SCALP: normocephalic Eye: COMMON NORMALS: Equal, round and reactive pupils present Neck/C-Spine: COMMON NORMALS: no JVD Resp: COMMON NORMALS: normal respiratory effort, No retractions, No use of accessory muscles and clear to auscultation bilaterally AUSCULTATION: clear to auscultation bilaterally Cardio: COMMON NORMALS: no JVD, regular rate, regular rhythm, S1 normal heart sound present and S2 normal heart sound present RATE: regular rate RHYTHM: regular rhythm HEART SOUNDS: S1 normal heart sound present and S2 normal heart sound present GI: COMMON NORMALS: Normal to inspection, nondistended, normoactive bowel sounds present, Soft to palpation, No hepatosplenomegaly present, no masses and no bruits PALPATION: Yes Soft to palpation and Yes Tenderness to palpation present (GI) Details: RUQ Extremity: COMMON NORMALS: no pedal edema Neuro: COMMON NORMALS: patient oriented x3 Psych: COMMON NORMALS: mental status grossly normal Data : 02/22/22 13:42 02/22/22 13:42 A&P Assessment and plan (1) Acute GI bleeding: Status: Acute (2) Gastric mass: Status: Acute (3) Abdominal pain: Status: Acute (4) Anemia: Status: Acute Plan Anterior gastric mass, with anemia, with upper GI bleed -CT scan abdomen pelvis with contrast -1. Bulky 5.1 x 4.8 x 3.4 cm soft tissue mass in the anterior portion of the gastric cardia with extension into the perigastric fat anteriorly most consistent with gastric neoplasm. 2. 3.9 x 3.5 x 3.9 cm direct extension of tumor into the fat between the stomach and liver versus moderate gastrohepatic ligament metastatic lymphadenopathy. 3. 1.8 cm lymph node to the left of the SMA origin in the periaortic area which could represent lymph node metastasis.? Axial series 3, image 23. -Patient had a CT scan on 02/14/2022, with contrast, I discussed with radiology of the significant difference in CAT scan readings, no evidence of active bleeding, no evidence of lymphadenopathy in the chest -Had an EGD and colonoscopy on 11/30/2020 which showed reflux esophagitis, gastritis, duodenitis, with biopsy Neri's esophagitis, no dysplasia, c olonoscopy showed diverticulosis, also had polypectomy with tubular adenoma -Hemoglobin 6.6 -Blood pressure 167/79 -He is on aspirin and Plavix, spoke to Dr. Marshall, agreeable to proceed with EGD Plan -Admit to general medical floors -Monitor hemodynamic closely -Monitor for bloody black stools -Monitor hemoglobin -N.p.o. midnight -Status post 1 unit PRBC -Protonix, Carafate -Check INR, will consider FFP -DNR/DNI -SCDs for DVT prophylaxis Attestations Medical Necessity Statement*: Patient requires hospitalization, outpatient with observation, for anemia, gastric mass Coding Level of Care Code Acute Chain Link Fence Installer for Chg Fwd Diagnoses Acute GI bleeding K92.2 Gastric mass K31.89 Abdominal pain R10.9 Anemia D64.9
[2022-02-22] MEDS: morphine 4 mg/mL SDV 1 mL 2 MG IVP (20:11)
[2022-02-22 21:07] LABS: Lactic Sepsis W/Reflex 1.8 mmol/L (0.5-2.2)
[2022-02-22 21:17] LABS: Thyroid Stimulating Hormone 1.84 uIU/mL (0.27-4.20)
[2022-02-22 21:37] LABS: INR 0.93 (0.8-1.2)
[2022-02-22] MEDS: acetaminophen 325 mg Tablet 650 MG PO (22:39)
[2022-02-22] MEDS: atorvastatin 40 mg Tablet 20 MG PO (22:51)
[2022-02-22] MEDS: sucralfate 1 gm Tablet PO (22:51)
[2022-02-23] VITALS (62 sets, daily range): BP systolic 129–163; BP diastolic 64–97; PULSE 65–89; RESP 13–28; TEMP 36.2–37.1; O2SAT 87–100
[2022-02-23] MEDS: morphine 4 mg/mL SDV 1 mL 2 MG IVP ×3 (00:46→18:18)
[2022-02-23] MEDS: ondansetron 2 mg/ML SDV 2 mL 4 MG IVP (00:49)
[2022-02-23 01:32] LABS: Basophils # 0.1 10^3/uL (0.0-0.1); Basophils % 0.6 %; Eosinophils # 0.3 10^3/uL (0.0-0.8); Eosinophils % 2.4 %; Hemoglobin 9.4 g/dL (11.7-16.6); Lymphocytes # 1.3 10^3/uL (0.8-4.8); Lymphocytes % 9.8 %; Mean Corpuscular HGB Conc 32.3 g/dL (30.0-36.0); Mean Platelet Volume 9.1 fL (7.4-10.4); Monocytes # 0.9 10^3/uL (0.2-0.9); Monocytes % 6.8 %; Neutrophils # 10.69 10^3/uL (1.8-7.7); Neutrophils % 79.4 %; Nucleated Red Blood Cells % 0 %; Platelet Count 447 10^3/cmm (130-400); Red Blood Count 3.13 10^6/uL (4.1-5.3); Red Cell Distribution Width 14.8 % (12.1-15.1); White Blood Count 13.5 10^3/uL (4.0-10.0)
[2022-02-23 01:38] LABS: Hematocrit 29.1 % (42.0-52.0)
[2022-02-23 01:54] LABS: Alanine Aminotransferase 23 U/L (0-41); Albumin Level 3.2 g/dL (3.5-5.2); Alkaline Phosphatase 101 U/L (40-130); Aspartate Amino Transferase 23 U/L (0-40); Blood Urea Nitrogen 11 mg/dL (8-23); Calcium 8.4 mg/dL (8.5-10.5); Carbon Dioxide 20 mmol/L (22-29); Chloride 104 mmol/L (98-107); Glomerular Filtration Rate 75.2 mL/min (90-130); Glucose 109 mg/dL (65-115); Magnesium 2.1 mg/dL (1.7-2.3); Osmolality Calculated 282 mOsm/kg (285-295); Phosphorus 3.6 mg/dL (2.5-4.5); Sodium 136 mmol/L (136-145); Total Bilirubin 0.6 mg/dL (0.15-1.2); Total Protein 6.2 g/dL (6.6-8.7)
[2022-02-23] MEDS: dextrose 5%-sod chloride 0.9% 1,000 ML 100 ML IV ×2 (02:10→16:38)
[2022-02-23 05:26] LABS: Hematocrit 30.9 % (42.0-52.0); Hemoglobin 9.2 g/dL (11.7-16.6)
[2022-02-23] MEDS: sucralfate 1 gm Tablet PO (08:39)
[2022-02-23] MEDS: pantoprazole 40 mg SDV IVP ×2 (08:39→21:38)
--- NOTE | 2022-02-23 09:05 | P.ANESASSM_ITS ---
Pre-Anesthetic Assessment Height/Weight: Height 1.73 m Weight 72.575 kg Temp Pulse Resp BP Pulse Ox O2 Del Method 98.2 F 68 19 H 139/72 98 02/23/22 00:00 02/23/22 08:45 02/23/22 08:48 02/23/22 08:45 02/23/22 08:48 02/23/22 08:45 Preop Diagnosis: History of colon polyps Operation Date: 02/23/22 09:30 Proposed Procedures p EGD(Not Applicable) - Caio Marshall MD Familial anesthetic complications: none Was Beta Ruth Ann taken within 24 hours: N/A Was Clonidine taken within 24 hours: N/A Social Tobacco and No alcohol Exam alert, oriented x 3 and regular rate & rhythm wheezing b/l Airway Submandibular: within normal limits Cervical ROM: within normal limits Mallampati: Class II Comments: Comments: missing teeth Pulmonary Chronic Obstructive Pulmonary Disease CV/HEM Anemia None reported Hepatic None reported GI Gastritis Dysphagia Esophageal stricture Acute GI bleed Gastric mass Metabolic None reported Musc/skel None reported Neuropsych Cerebrovascular Accident Anesthetic Plan ASA status: 3 Anesthesia: Anesthesia Evaluation and General Other: We discussed risk and benefits of general anesthesia including PONV, sore throat (sometimes severe), corneal abrasion, positioning and peripheral nerve injuries, life threatening allergic reaction, post operative ICU admission requiring prolonged intubation, aspiration, stroke, heart attack, , and rare incidences of recall. Patient consents to proceed with general anesthesia. Plan RSI, GETA Risk of > 500 ml blood loss (7ml/kg in children): No Medications/Allergies Home Medications Medication Instructions Recorded Confirmed Last Taken Type albuterol sulfate 90 mcg/actuation 2 puff inhalation Q4H PRN 06/18/19 02/22/22 Unknown History aerosol inhaler (ProAir HFA) Shortness Of Breath aspirin 81 mg chewable tablet 81 mg PO BEDTIME 06/18/19 02/22/22 02/21/22 Histo ry clopidogrel 75 mg tablet (Plavix) 75 mg PO BEDTIME 06/18/19 02/22/22 02/21/22 History pravastatin 20 mg tablet 20 mg PO BEDTIME 06/18/19 02/22/22 02/21/22 History trazodone 100 mg tablet 100 mg PO BEDTIME 06/18/19 02/22/22 02/21/22 History sucralfate 1 gram tablet (Carafate) 1 g PO TID 12 weeks #252 tabs 11/12/20 02/22/22 02/22/22 Rx umeclidinium 62.5 mcg-vilanterol 1 inh inhalation DAILY 01/28/22 02/22/22 Unknown History 25 mcg/actuation powdr for inhalation (Anoro Ellipta) omeprazole 20 mg capsule,delayed 20 mg PO BEDTIME 02/01/22 02/22/22 02/21/22 History release ciprofloxacin HCl 500 mg tablet 500 mg PO BID #14 tabs 02/14/22 02/22/22 02/20/22 Rx hydrocodone 5 mg-acetaminophen 325 1 tab PO Q8H PRN pain #10 tabs 02/14/22 02/22/22 02/13/22 Rx mg tablet metronidazole 500 mg tablet 250 mg PO TID #21 tabs 02/14/22 02/22/22 02/20/22 Rx ondansetron 4 mg oral soluble film 4 mg PO DAILY PRN nausea and 02/14/22 02/22/22 Unknown Rx vomiting #10 ea ferrous sulfate 325 mg (65 mg 325 mg PO BID 02/22/22 02/22/22 02/22/22 History iron) tablet (iron) Allergies Allergy/AdvReac Type Severity Reaction Status Date / Time metoclopramide [From Reglan] Allergy Intermediate extrapyrami Verified 02/22/22 15:11 susy Current Medications Generic Name Dose Route Start Last Admin Trade Name Freq PRN Reason Stop Dose Admin Acetaminophen 650 mg 02/22/22 20:00 02/22/22 22:39 Acetaminophen 325 Mg Tablet PO 650 mg Q6H PRN Administration Mild/Mod Pain Or Temp >/= 101 Atorvastatin Calcium 20 mg 02/22/22 21:00 02/22/22 22:51 Atorvastatin 40 Mg Tablet PO 20 mg BEDTIME ELIEL Administration Dextrose/Sodium Chloride 1,000 mls @ 100 mls/hr 02/22/22 20:00 02/23/22 02:10 Dextrose 5%-Sod Chloride 0.9% IV 100 mls/hr .Q10H ELIEL Administration Morphine Sulfate 2 mg 02/22/22 20:00 02/23/22 08:48 Morphine 4 Mg/Ml Sdv 1 Ml IVP 2 mg Q4H PRN Administration SEVERE PAIN Ondansetron HCl 4 mg 02/22/22 20:00 02/23/22 00:49 Ondansetron 2 Mg/Ml Sdv 2 Ml IVP 4 mg Q8H PRN Administration vomiting, or N/V if npo Pantoprazole Sodium 40 mg 02/22/22 20:00 02/23/22 08:39 Pantoprazole 40 Mg Sdv IVP 40 mg Q12H ELIEL Administration Sucralfate 1 gm 02/22/22 21:00 02/23/22 08:39 Sucralfate 1 Gm Tablet PO 1 gm TID ELIEL Administration PFSH Anesthesia Medical History CVA (cerebral vascular accident) Diverticulosis Duodenitis Dysphagia as late effect of cerebrovascular disease Esophageal stricture Gastritis Surgical History History of cholecystectomy History of eye surgery History of spinal surgery Family History Brother Cancer Sister Cancer Father Stroke Grandmother Stroke Social History Smoking and tobacco status: current every day smoker cigarettes Packs smoked per day: 1 Alcohol intake: never Data Anesthesia : 02/23/22 12:45 02/23/22 01:00 Short CBC 02/22/22 02/23/22 02/23/22 Range/Units 13:42 01:00 05:22 WBC 14.7 H 13.5 H (4.0-10.0) 10^3/uL Hgb 6.6 L 9.4 L D 9.2 L (11.7-16.6) g/dL Hct 21.6 L 29.1 L D 30.9 L (42.0-52.0) % MCV 98.2 H 93.0 D (80-94) fl Plt Count 596 H 447 H (130-400) 10^3/cmm Neut % (Auto) 76.1 79.4 % Neut # (Auto) 11.18 H 10.69 H (1.8-7.7) 10^3/uL BMP 02/22/22 02/23/22 13:42 01:00 Sodium 137 136 Potassium 4.0 4.0 Chloride 103 104 Carbon Dioxide 23 20 L BUN 13 11 Creatinine 1.0 1.0 Glucose 131 H 109 Calcium 8.7 8.4 L Liver Function 02/22/22 02/23/22 Range/Units 13:42 01:00 Total Bilirubin 0.2 0.6 (0.15-1.2) mg/dL AST 22 23 (0-40) U/L ALT 23 23 (0-41) U/L Alkaline Phosphatase 104 101 (40-130) U/L Albumin 3.6 3.2 L (3.5-5.2) g/dL Urine 02/22/22 Range/Units 14:10 Urine Color Yellow (Yellow) Urine Appearance Clear (CLEAR) Urine pH 6 (5-7) Ur Specific [place] 1.010 (1.005-1.030) Urine Protein Neg (Negative) Urine Glucose (UA) Norm (Normal) Urine Ketones Negative (Negative) Urine Nitrate Negative (Negative) Urine Bilirubin Neg (Negative) Ur Leukocyte Esterase 1+ H (Negative) Urine RBC Rare (0-2) /hpf Urine WBC 5-10 H (0-5) /hpf Blood Bank 02/22/22 15:30 Blood Type A Positive Rho(D) Type Positive Antibody Screen Negative Coags 02/22/22 14:20 PT 12.70 INR 0.93 Cardiac Studies: No Data to Display
--- NOTE | 2022-02-23 09:25 | W.PM.OPSFHP ---
Same Day Surgery H&P Indication for Procedure/HPI DATE OF PROCEDURE: February 23, 2022 CHIEF COMPLAINT/INDICATIONFOR SURGICAL PROCEDURE: Abnormal CT and Profound anemia. PREOP DIAGNOSIS: History of colon polyps PLANNED PROCEDURE: Operation Date: 02/23/22 09:30 Proposed Procedures p EGD(Not Applicable) - Caio Marshall MD Medications/Allergies* Home Medications Medication Instructions Recorded Confirmed Type albuterol sulfate 90 mcg/actuation 2 puff inhalation Q4H PRN 06/18/19 02/22/22 History aerosol inhaler (ProAir HFA) Shortness Of Breath aspirin 81 mg chewable tablet 81 mg PO BEDTIME 06/18/19 02/22/22 History clopidogrel 75 mg tablet (Plavix) 75 mg PO BEDTIME 06/18/19 02/22/22 History pravastatin 20 mg tablet 20 mg PO BEDTIME 06/18/19 02/22/22 History trazodone 100 mg tablet 100 mg PO BEDTIME 06/18/19 02/22/22 History umeclidinium 62.5 mcg-vilanterol 1 inh inhalation DAILY 01/28/22 02/22/22 History 25 mcg/actuation powdr for inhalation (Anoro Ellipta) omeprazole 20 mg capsule,delayed 20 mg PO BEDTIME 02/01/22 02/22/22 History release ferrous sulfate 325 mg (65 mg 325 mg PO BID 02/22/22 02/22/22 History iron) tablet (iron) Allergies/Adverse Reactions Allergy/AdvReac Type Severity Reaction Status Date / Time metoclopramide [From Reglan] Allergy Intermediate extrapyrami Verified 02/22/22 15:11 susy Current Medications: Generic Name Dose Route Start Last Admin Trade Name Emersonq PRN Reason Stop Dose Admin Acetaminophen 650 mg 02/22/22 20:00 02/22/22 22:39 Acetaminophen 325 Mg Tablet PO 650 mg Q6H PRN Administration Mild/Mod Pain Or Temp >/= 101 Atorvastatin Calcium 20 mg 02/22/22 21:00 02/22/22 22:51 Atorvastatin 40 Mg Tablet PO 20 mg BEDTIME ELIEL Administration Dextrose/Sodium Chloride 1,000 mls @ 100 mls/hr 02/22/22 20:00 02/23/22 02:10 Dextrose 5%-Sod Chloride 0.9% IV 100 mls/hr .Q10H ELIEL Administration Morphine Sulfate 2 mg 02/22/22 20:00 02/23/22 08:48 Morphine 4 Mg/Ml Sdv 1 Ml IVP 2 mg Q4H PRN Administration SEVERE PAIN Ondansetron HCl 4 mg 02/22/22 20:00 02/23/22 00:49 Ondansetron 2 Mg/Ml Sdv 2 Ml IVP 4 mg Q8H PRN Administration vomiting, or N/V if npo Pantoprazole Sodium 40 mg 02/22/22 20:00 02/23/22 08:39 Pantoprazole 40 Mg Sdv IVP 40 mg Q12H ELIEL Administration Sucralfate 1 gm 02/22/22 21:00 02/23/22 08:39 Sucralfate 1 Gm Tablet PO 1 gm TID ELIEL Administration Pertinent History/Comorbid Conditions* Medical History (Updated 02/22/22 @ 19:54 by Alex Lindo MD) CVA (cerebral vascular accident) Diverticulosis Duodenitis Dysphagia as late effect of cerebrovascular disease Esophageal stricture Gastritis Surgical History (Updated 02/22/22 @ 19:54 by Alex Lindo MD) History of cholecystectomy History of eye surgery History of spinal surgery Family History (Updated 06/18/19 @ 14:55 by Britany Fitzgerald LPN) Cancer Brother Sister Stroke Father Grandmother Social History Smoking and tobacco status: current every day smoker cigarettes Packs smoked per day: 1 Alcohol intake: never Pertinent Exam Findings alert, oriented x 3, clear to auscultation bilaterally, regular rate & rhythm, operative site marked and procedure specific exam findings Recommendations Surgery/Procedure today Coding Level of Care Code Acute Chief Of Safety And Protection for Tyler Mcdonald
[2022-02-23] MEDS: sodium chloride 0.9% 1,000 ML 30 ML IV (09:33)
--- NOTE | 2022-02-23 09:38 | PC.NURSE ---
Pt taken to GI lab for procedure by GI lab nurse around 0900.
[2022-02-23] MEDS: EPINEPHrine 1 mg/mL INJ XX (09:43)
--- NOTE | 2022-02-23 11:41 | PC.NURSE ---
Pt brought back from GI lab by GI lab nurse. Vital signs stable. Pt situated in room and connected to monitor.
[2022-02-23 13:03] LABS: Hemoglobin 9.1 g/dL (11.7-16.6)
--- NOTE | 2022-02-23 15:43 | ANE.PACU2 ---
Inpatient post-anesthesia follow up: Airway intact: Yes Vital signs: Temperature 98.5 F Pulse Rate 65 Respiratory Rate 16 Blood Pressure 150/74 Pulse Oximetry 98 Oxygen Delivery Me thod Room Air Oxygen Flow Rate Fraction of Inspir ed Oxygen Hydration adequate: Yes Nausea and vomiting: No Pain level: 4 Mental status: Baseline
[2022-02-23 18:34] LABS: Hematocrit 29.6 % (42.0-52.0); Hemoglobin 9.4 g/dL (11.7-16.6)
--- NOTE | 2022-02-23 20:52 | P.PN_ITS ---
Subjective Subjective: Some epigastric discomfort/pain. Otherwise doing well. No vomiting. Discussed with him and family again regarding findings on endoscopy, further hospitalization for reassessment of blood counts, bleeding, twice daily PPI, withholding antiplatelets, and need for further follow-up of biopsy results with suspicious mass and likely malignancy. Vitals/I&O/Wt Last Vital Signs Temp 98.8 F 02/23/22 20:00 Pulse 74 02/23/22 20:00 Resp 17 02/23/22 20:00 BP 163/89 02/23/22 20:00 Pulse Ox 97 02/23/22 20:00 O2 Del Method 02/23/22 16:44 02/23/22 02/23/22 02/23/22 06:59 14:59 22:59 Intake Total 0 / 350 1456.667 / 1456.667 0 / 1456.667 Output Total 0 / 0 Balance 0 / 350 1456.667 / 1456.667 0 / 1456.667 Weight last 48 hrs Weight 72.575 kg Physical Exam Const: COMMON NORMALS: patient oriented x3 and alert GENERAL APPEARANCE: cooperative ORIENTATION/CONSCIOUSNESS: Yes awake HENMT: COMMON NORMALS: oropharynx normal Neck/C-Spine: COMMON NORMALS: no JVD Resp: COMMON NORMALS: normal respiratory effort and clear to auscultation bilaterally AUSCULTATION: clear to auscultation bilaterally Cardio: COMMON NORMALS: no JVD, regular rhythm, S1 normal heart sound present, S2 normal heart sound present and No murmurs present (Cardio) RHYTHM: regular rhythm HEART SOUNDS: S1 normal heart sound present and S2 normal heart sound present GI: COMMON NORMALS: Normal to inspection, nondistended, normoactive bowel sounds present and Soft to palpation PALPATION: Yes Soft to palpation and Yes Tenderness to palpation present (GI) Details: other (Upper) Extremity: COMMON NORMALS: no joint enlargement and no pedal edema Neuro: COMMON NORMALS: patient oriented x3 and moves all extremities SENSORIUM/ORIENTATION: Yes alert OTHER: 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 Skin: COMMON NORMALS: no rashes or lesions noted GENERAL SKIN EXAM: no rashes or lesions noted Data : 02/23/22 18:15 02/23/22 01:00 A&P Assessment and plan (1) Acute GI bleeding: Maintaining hemoglobin so far on reassessment. Follow-up. Stop aspirin and Plavix. Twice daily PPI. Finding of lower esophageal mass, bleeding spots injected with epinephrine, pending biopsy, discussed with him and family will need follow-up with oncology and consideration for possible options for management. Status: Acute (2) Gastric mass: Lower esophageal mass, currently not fully obstructive. Pending biopsy. Will need follow-up for assessment of possible treatment and/or palliative options. Status: Acute (3) Abdominal pain: Continue PPI. Morphine as needed. Discussed with him and family, unfortunately pain may be related to malignancy and may be expected to persist. Status: Acute (4) Anemia: As above. So far good response to transfusion. Reassess blood counts. Status: Acute Attestations Medical Necessity Statement*: Continue admission for assessment of management of acute anemia with friable, easily bleeding lower esophageal mass found on endoscopy in the gentleman on dual antiplatelet therapy. Coding Level of Care Code Acute Applications Support Specialist for [facility] Tamara Diagnoses Acute GI bleeding K92.2 Gastric mass K31.89 Abdominal pain R10.9 Anemia D64.9
[2022-02-23 21:24] LABS: Hemoglobin 8.8 g/dL (11.7-16.6)
[2022-02-23] MEDS: atorvastatin 40 mg Tablet 20 MG PO (21:38)
[2022-02-23] MEDS: trazodone 100 mg Tablet PO (22:31)
[2022-02-24] VITALS (8 sets, daily range): BP systolic 122–163; BP diastolic 63–89; PULSE 60–75; RESP 16–17; TEMP 36.6–37.1; O2SAT 96–99
[2022-02-24] MEDS: dextrose 5%-sod chloride 0.9% 1,000 ML 100 ML IV ×2 (02:17→12:54)
[2022-02-24 03:23] LABS: Basophils # 0.1 10^3/uL (0.0-0.1); Basophils % 0.6 %; Eosinophils # 0.5 10^3/uL (0.0-0.8); Eosinophils % 4.5 %; Hematocrit 27.7 % (42.0-52.0); Hemoglobin 8.7 g/dL (11.7-16.6); Lymphocytes # 1.6 10^3/uL (0.8-4.8); Lymphocytes % 13.5 %; Mean Corpuscular HGB Conc 31.4 g/dL (30.0-36.0); Mean Corpuscular Hemoglobin 29.6 pg (28.0-34.0); Mean Corpuscular Volume 94.2 fl (80-94); Mean Platelet Volume 9.7 fL (7.4-10.4); Monocytes # 1.2 10^3/uL (0.2-0.9); Monocytes % 9.8 %; Neutrophils # 8.45 10^3/uL (1.8-7.7); Neutrophils % 70.8 %; Nucleated Red Blood Cells % 0 %; Platelet Count 459 10^3/cmm (130-400); Red Blood Count 2.94 10^6/uL (4.1-5.3); Red Cell Distribution Width 15.2 % (12.1-15.1); White Blood Count 11.9 10^3/uL (4.0-10.0)
[2022-02-24 03:42] LABS: Alanine Aminotransferase 19 U/L (0-41); Albumin Level 2.9 g/dL (3.5-5.2); Alkaline Phosphatase 100 U/L (40-130); Anion Gap 13.5 (5-19); Aspartate Amino Transferase 15 U/L (0-40); Blood Urea Nitrogen 7 mg/dL (8-23); Calcium 8.1 mg/dL (8.5-10.5); Carbon Dioxide 21 mmol/L (22-29); Chloride 107 mmol/L (98-107); Creatinine Clr Calc Pharmacy 67.2389; Globulin 2.6 g/dL (1.3-4.6); Glomerular Filtration Rate 67.4 mL/min (90-130); Glucose 103 mg/dL (65-115); Magnesium 2.1 mg/dL (1.7-2.3); Osmolality Calculated 284 mOsm/kg (285-295); Phosphorus 3.4 mg/dL (2.5-4.5); Potassium 3.5 mmol/L (3.5-5.1); Sodium 138 mmol/L (136-145); Total Bilirubin 0.4 mg/dL (0.15-1.2); Total Protein 5.5 g/dL (6.6-8.7)
[2022-02-24 05:11] LABS: Hematocrit 29.1 % (42.0-52.0); Hemoglobin 8.9 g/dL (11.7-16.6)
--- NOTE | 2022-02-24 06:58 | PC.NURSE ---
pt had no needs, call light in reach, pt was very unsteady after night time medication, daughter at bedside
[2022-02-24] MEDS: pantoprazole 40 mg SDV IVP (08:47)
--- NOTE | 2022-02-24 09:18 | PC.CHAP ---
Pastoral Care Encounter/Spiritual Assessment Type of Contact [] Declined clinical implementation specialist visit [] Patient/Family/Request visit [] Outpatient visit [] Follow-up visit [] Physician referral [] Code/Alert [x] Routine visit [] Staff referral [] Actively dying [x] Patient sleeping [] Family support [] [] Out of room [] Palliative care [] [] Receiving care in room [] Pre-surgical visit [] Trauma [] Long length of stay [] ICU visit [] Other: Relational/Emotional Strength [] Patient feels connected with others/family/visitors/staff [] Distress [] Loneliness/isolation [] Abandonment Spirituality of Patient [] Person of Nany [] Attends Gnosticist of their Nany [] Believes in Prayer [] Reads Bible or Jehovah'S Witness materials [] There are Spiritual issues to be addressed Jewelry Facer Interventions [] Prayer [] Active listening [] Non-anxious presence [] Spiritual/emotional support [] Crisis/trauma care [] Spiritual counseling [] Bereavement support [] Provided bereavement packet [] Provided Bible/devotional materials [] Provided toy/stuffed animal, coloring book to patient or family member [] Provided Communion [] Anointing/Daw[place] [] Salvation [] Completed spiritual assessment [] Other: Impact on Illness or Injury [] Angry [] Fearful [] Anxious [] Often cries [] Exhaustion [] Unable to work [] Unable to attend islam [] Unable to walk/stand [] Unable to read [] Unable to drive [] Unable to eat/drink [] Unable to sleep [] Unable to be with family [] Patient intubated [] Other: Summary Time spent with patient
[2022-02-24 11:27] LABS: Glucose Point of Care 126 mg/dL (70-110)
[2022-02-24 15:19] LABS: Hemoglobin 8.8 g/dL (11.7-16.6)
--- NOTE | 2022-02-24 19:55 | PM.DCS ---
Discharge Providers Date of Admission: 02/23/22 03:49 Date of Discharge: February 24, 2022 Attending Provider at Admission: Alex Lindo MD Attending Provider at Discharge: Chemo Toribio Primary Care Provider: Gamaliel Kemp MD Diagnoses at Discharge Discharge Diagnosis (1) Acute GI bleeding: Status: Acute (2) Gastric mass: Status: Acute (3) Abdominal pain: Status: Acute (4) Anemia: Status: Acute Reason for Visit Reason for Visit: ABD Pain-sent from dr kemp [facility] Course Hospital Course Pleasant 66-year-old gentleman with history of smoking, COPD, iron deficiency anemia, history of CVA on ASA and clopidogrel,, was hospitalized after presenting with fatigue, malaise, upper abdominal pain, with noted anemia on recent lab work, on presentation initial hemoglobin 6.6, received blood transfusion with 2 units RBC with good response, CT scan showed 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 Aspirin and Plavix were held. Was started on PPI twice daily. Was assessed by upper endoscopy during the admission with finding of partially obstructing large sized friable fungating, circumferential, ulcerated mass in lower third of the esophagus, with malignant appearance, actively bleeding. Stomach examined with no abnormalities. Duodenum with no abnormalities. Any noted bleeding spots were injected with epinephrine, mass was biopsied. He was maintained on bowel rest, n.p.o., hemoglobin was followed up, remained steady at 8.9. She was then resumed on clear liquid diet as he was feeling better, was hungry, with subsequent additional hemoglobin follow-up again 8.8. He tolerated oral intake well. As such he is discharged follow-up with primary provider and oncologist. At discharge omeprazole is increased to 40 mg twice daily. He continues on sucralfate. Aspirin and Plavix are discontinued at this time. Please reassess his blood count. Follow-up biopsy results. 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 Necrotic elements with acute inflammation. Based on CT scan results further assessment may need to be undertaken once he has been off antiplatelet medications with reduced bleeding risk. Physical Exam Const: COMMON NORMALS: patient oriented x3 and alert GENERAL APPEARANCE: cooperative ORIENTATION/CONSCIOUSNESS: Yes awake HENMT: COMMON NORMALS: oropharynx normal Neck/C-Spine: COMMON NORMALS: no JVD Resp: COMMON NORMALS: normal respiratory effort and clear to auscultation bilaterally AUSCULTATION: clear to auscultation bilaterally Cardio: COMMON NORMALS: no JVD, regular rhythm, S1 normal heart sound present, S2 normal heart sound present and No murmurs present (Cardio) RHYTHM: regular rhythm HEART SOUNDS: S1 normal heart sound present and S2 normal heart sound present GI: COMMON NORMALS: Normal to inspection, nondistended, normoactive bowel sounds present and Soft to palpation PALPATION: Yes Soft to palpation and Yes Tenderness to palpation present (GI) (Less tender) Extremity: COMMON NORMALS: no joint enlargement and no pedal edema Neuro: COMMON NORMALS: patient oriented x3 and moves all extremities SENSORIUM/ORIENTATION: Yes alert OTHER: 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 Skin: COMMON NORMALS: no rashes or lesions noted GENERAL SKIN EXAM: no rashes or lesions noted Discharge Data Studies Completed and Pending Completed Studies During Hospitalization Category Date Time Status CT abdomen pelvis w con* [id number] Stat Cat Scan 02/22/22 14:59 Completed Pathology: Surgical [PTH] Routine Pth 02/23/22 09:52 Completed Radiology Impressions Abdomen/Pelvis CT 02/22/22 14:59 IMPRESSION: 1. Bulky 5.1 x 4.8 x 3.4 cm soft tissue mass in the anterior portion of the gastric cardia with extension into the perigastric fat anteriorly most consistent with gastric neoplasm. 2. 3.9 x 3.5 x 3.9 cm direct extension of tumor into the fat between the stomach and liver versus moderate gastrohepatic ligament metastatic lymphadenopathy. 3. 1.8 cm lymph node to the left of the SMA origin in the periaortic area which could represent lymph node metastasis. Axial series 3, image 23. ADDENDUM: 02/22/221921 THIS REPORT CONTAINS FINDINGS THAT MAY BE CRITICAL TO PATIENT CARE. The findings were verbally communicated via telephone conference with Dr. Lindo at 7:21 PM CDT on 02/22/2022. The findings were acknowledged and understood. Laboratory Results WBC 11.9 10^3/uL (4.0-10.0) H 02/24/22 01:57 RBC 2.94 10^6/uL (4.1-5.3) L 02/24/22 01:57 Hgb 8.8 g/dL (11.7-16.6) L 02/24/22 15:07 Hct 29.1 % (42.0-52.0) L 02/24/22 04:11 MCV 94.2 fl (80-94) H 02/24/22 01:57 MCH 29.6 pg (28.0-34.0) 02/24/22 01:57 MCHC 31.4 g/dL (30.0-36.0) 02/24/22 01:57 RDW 15.2 % (12.1-15.1) H 02/24/22 01:57 Plt Count 459 10^3/cmm (130-400) H 02/24/22 01:57 MPV 9.7 fL (7.4-10.4) 02/24/22 01:57 Neut % (Auto) 70.8 % 02/24/22 01:57 Lymph % (Auto) 13.5 % 02/24/22 01:57 [place] % (Auto) 9.8 % 02/24/22 01:57 Eos % (Auto) 4.5 % 02/24/22 01:57 Baso % (Auto) 0.6 % 02/24/22 01:57 Neut # (Auto) 8.45 10^3/uL (1.8-7.7) H 02/24/22 01:57 Lymph # (Auto) 1.6 10^3/uL (0.8-4.8) 02/24/22 01:57 [place] # (Auto) 1.2 10^3/uL (0.2-0.9) H 02/24/22 01:57 Eos # (Auto) 0.5 10^3/uL (0.0-0.8) 02/24/22 01:57 Baso # (Auto) 0.1 10^3/uL (0.0-0.1) 02/24/22 01:57 Nucleated RBC % (auto) 0 % 02/24/22 01:57 Nucleated RBCs # 0.0 /100WBC 02/24/22 01:57 PT 12.70 SECONDS (12.1-14.9) 02/22/22 14:20 INR 0.93 (0.8-1.2) 02/22/22 14:20 Sodium 138 mmol/L (136-145) 02/24/22 01:57 Potassium 3.5 mmol/L (3.5-5.1) 02/24/22 01:57 Chloride 107 mmol/L (98-107) 02/24/22 01:57 Carbon Dioxide 21 mmol/L (22-29) L 02/24/22 01:57 Anion Gap 13.5 (5-19) 02/24/22 01:57 BUN 7 mg/dL (8-23) L 02/24/22 01:57 Creatinine 1.1 mg/dL (0.7-1.2) 02/24/22 01:57 GFR Calculation 67.4 mL/min (90-130) L 02/24/22 01:57 Glucose 103 mg/dL (65-115) 02/24/22 01:57 POC Glucose 126 mg/dL (70-110) H 02/24/22 11:10 Calculated Osmolality 284 mOsm/kg (285-295) L 02/24/22 01:57 Lactic Acid 1.8 mmol/L (0.5-2.2) 02/22/22 14:20 Calcium 8.1 mg/dL (8.5-10.5) L 02/24/22 01:57 Phosphorus 3.4 mg/dL (2.5-4.5) 02/24/22 01:57 Magnesium 2.1 mg/dL (1.7-2.3) 02/24/22 01:57 Total Bilirubin 0.4 mg/dL (0.15-1.2) 02/24/22 01:57 AST 15 U/L (0-40) 02/24/22 01:57 ALT 19 U/L (0-41) 02/24/22 01:57 Alkaline Phosphatase 100 U/L (40-130) 02/24/22 01:57 Total Protein 5.5 g/dL (6.6-8.7) L 02/24/22 01:57 Albumin 2.9 g/dL (3.5-5.2) L 02/24/22 01:57 Globulin 2.6 g/dL (1.3-4.6) 02/24/22 01:57 Lipase 41 U/L (13-60) 02/22/22 13:42 TSH 1.84 uIU/mL (0.27-4.20) 02/22/22 13:42 Urine Color Yellow (Yellow) 02/22/22 14:10 Urine Appearance Clear (CLEAR) 02/22/22 14:10 Urine pH 6 (5-7) 02/22/22 14:10 Ur Specific [place] 1.010 (1.005-1.030) 02/22/22 14:10 Urine Protein Neg (Negative) 02/22/22 14:10 Urine Glucose (UA) Norm (Normal) 02/22/22 14:10 Urine Ketones Negative (Negative) 02/22/22 14:10 Urine Blood Neg (Negative) 02/22/22 14:10 Urine Nitrate Negative (Negative) 02/22/22 14:10 Urine Bilirubin Neg (Negative) 02/22/22 14:10 Urine Urobilinogen Norm mg/dL (Negative) 02/22/22 14:10 Ur Leukocyte Esterase 1+ (Negative) H 02/22/22 14:10 Urine RBC Rare /hpf (0-2) 02/22/22 14:10 Urine WBC 5-10 /hpf (0-5) H 02/22/22 14:10 Ur Squamous Epith Cells 0-4 /hpf (0-5) H 02/22/22 14:10 Amorphous Sediment Not Reportable 02/22/22 14:10 Urine Bacteria Trace /hpf (NONE) 02/22/22 14:10 Urine Mucus 1+ /hpf 02/22/22 14:10 Blood Type A Positive 02/22/22 15:30 Rho(D) Type Positive 02/22/22 15:30 Antibody Screen Negative 02/22/22 15:30 Crossmatch See Detail 02/22/22 15:30 Vitals Last Vital Signs Temp 98.2 F 02/24/22 18:02 Pulse 69 02/24/22 18:02 Resp 17 02/24/22 18:02 BP 161/81 02/24/22 18:02 Pulse Ox 97 02/24/22 18:02 O2 Del Method 02/24/22 15:48 Discharge Plan Discharge Patient Disposition: Home Condition: Stable Prescriptions: Continued pravastatin 20 mg tablet 20 mg PO BEDTIME albuterol sulfate [ProAir HFA] 90 mcg/actuation HFA aerosol inhaler 2 puff INHALATION Q4H PRN (Reason: Shortness Of Breath) trazodone 100 mg tablet 100 mg PO BEDTIME Anoro Ellipta 62.5-25 mcg/actuation blister with device 1 inh inhalation DAILY sucralfate [Carafate] 1 gram tablet 1 g PO TID 84 Days Qty: 252 2RF hydrocodone-acetaminophen 5-325 mg tablet 1 tab PO Q8H PRN (Reason: pain) Qty: 10 0RF ondansetron 4 mg film 4 mg PO DAILY PRN (Reason: nausea and vomiting) Qty: 10 0RF ciprofloxacin HCl 500 mg tablet 500 mg PO BID Qty: 14 0RF metronidazole 500 mg tablet 250 mg PO TID Qty: 21 0RF iron 325 mg (65 mg iron) Tablet 325 mg PO BID Changed omeprazole 20 mg capsule,delayed release(DR/EC) 40 mg PO BID Qty: 168 0RF Discontinued clopidogrel [Plavix] 75 mg tablet 75 mg PO BEDTIME Hold Instructions: Resume on 11/17/20. aspirin 81 mg tablet,chewable 81 mg PO BEDTIME Hold Instructions: Resume on 11/19/20. Discharge Orders: Discharge Order (Routine); Ordered 02/24/22 Ordered By: Chemo Toribio Referrals: Ansley Victor MD [Staff Physician] - 4-7 days (New lower esophageal mass likely malignancy fax for appointment) Gamaliel Kemp MD [Primary Care Provider] - 4-7 days (faxed for appointment) Discharge Diet: Full LIquid Patient Instructions: Abdominal Pain - Adult, GI Bleeding, GI Discharge Instructions, Opioid Safety Activity Restrictions/Additional Instructions: Please stop aspirin Plavix due to upper GI bleeding. Due to this your dose of Entresto is also increased up to 40 mg twice a day. Please have your primary care doctor reassess your blood counts in office at next visit. Please discuss with your primary doctor results of esophageal mass biopsy. Mass is highly suspicious for malignancy. Please follow-up with oncology physician and discuss further referral depending on possibility of surgical options. Please continue on full liquid diet currently. Depending on recheck blood count, please discuss with your primary doctor advancement of diet. In case you experience any bleeding, vomiting blood, any inability to swallow food or drink, or any other concerning symptoms, seek medical attention. Discharge Attestations Time Spent in Discharge Care*: greater than 30 min Quality Metrics Clinical Quality Measures [ No reported AMI, CVA or VTE this stay] Coding Level of Care Code Acute Chg FW DC note Diagnoses Acute GI bleeding K92.2 Gastric mass K31.89 Abdominal pain R10.9 Anemia D64.9
== END 2022-02-24 18:25 | disposition home or self-care (01) ==
LOC: ER 02-23 00:33 → ER IP 02-23 01:41 → MEDSURG 02-23 14:28
PROVIDERS: Family Medicine; Internal Medicine; Admitting Provider Family Medicine; Emergency Provider Emergency Medicine; PCP Family Medicine; Visit Provider Internal Medicine
PROC: 0DJ08ZZ Inspection of Upper Intestinal Tract, Via Natural or Artificial Opening Endoscopic (ICD-10-PCS; CPT 43235; principal; 2022-02-23 09:30)
DX: K92.2 Gastrointestinal hemorrhage, unspecified (principal); K31.89 Other diseases of stomach and duodenum; D64.9 Anemia, unspecified; J44.9 Chronic obstructive pulmonary disease, unspecified; Z86.73 Personal history of transient ischemic attack (TIA), and cerebral infarction without residual deficits; Z79.82 Long term (current) use of aspirin; F17.210 Nicotine dependence, cigarettes, uncomplicated; Z79.02 Long term (current) use of antithrombotics/antiplatelets
CPT/HCPCS: 36415; 36416; 43239; 43255; 74177; 80053; 81001; 82962; 83605; 83690; 83735; 84100; 84443; 85014; 85018; 85025; 85610; 86850; 86900; 86920; 88305; 94664; 96374; 96375; 99285; C9113; G0378; J0171; J0330; J2270; J2405; J2704; J3010; J7030; P9016; Q9967

== ENCOUNTER → 2022-02-25 11:49 | Outpatient (BNVA) | payer MEDICARE, SELFPAY | PROVIDERS: PCP Family Medicine; Visit Provider Family Medicine | DX: K92.2 Gastrointestinal hemorrhage, unspecified (principal); K31.89 Other diseases of stomach and duodenum | CPT/HCPCS: 80053; 85025 ==

== ENCOUNTER 2022-03-03 11:43 | Oncology outpatient (recurring) (ONCR) | payer MEDICARE, SELFPAY | END 2022-03-12 23:59 | disposition home or self-care (01) | PROVIDERS: PCP Family Medicine; Visit Provider Internal Medicine Medical Oncology | DX: R59.0 Localized enlarged lymph nodes; F17.210 Nicotine dependence, cigarettes, uncomplicated; R19.06 Epigastric swelling, mass or lump | CPT/HCPCS: 99204; 99205 ==

== ENCOUNTER 2022-03-17 08:29 | Oncology outpatient (recurring) (ONCR) | payer MEDICARE, SELFPAY | END 2022-04-12 23:59 | disposition home or self-care (01) | PROVIDERS: PCP Family Medicine; Visit Provider Internal Medicine Medical Oncology | DX: C16.0 Malignant neoplasm of cardia (principal); K76.89 Other specified diseases of liver; Z79.891 Long term (current) use of opiate analgesic | CPT/HCPCS: 99214 ==

== ENCOUNTER → 2022-04-28 07:53 | Outpatient (BNVA) | payer MEDICARE, SELFPAY | PROVIDERS: PCP Family Medicine; Visit Provider Nurse Practitioner | DX: C16.0 Malignant neoplasm of cardia (principal) | CPT/HCPCS: 99215 ==

== ENCOUNTER 2022-05-03 18:21 | Emergency (ER) | payer MEDICARE, SELFPAY ==
[2022-05-03 18:37] VITALS: BP 165/89; PULSE 63; TEMP 36.3; O2SAT 98; BMI 21.9
[2022-05-03 19:40] VITALS: BP 176/85; PULSE 61; RESP 18; O2SAT 98
--- NOTE | 2022-05-03 19:44 | ED_ITS ---
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 Aspirin and Plavix were held.? Was started on PPI twice daily.? 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 Today, the patient is here with 5 of his family members. He took his second round of chemotherapy starting on Tuesday and ending on Tuesday of this previous week. Patient reports he has not had hardly anything to eat or drink in the last 5 days. Family states that he cannot walk and even has trouble transferring because he is so weak. The mass was at the lower esophagus and in the anterior part of the stomach as well as near the gastric outlet. He has had significant weight loss and malnutrition. They were told that he cannot have a feeding tube because of the location of the tumor. He does have nausea and at times vomits. Minimal stool output and urine output over the last few days. At times he seems altered and at other times he is lucid. No fever, respiratory distress, bleeding. Associated symptoms: Reports confusion, nausea and vomiting; Denies chest pain, chills, dysuria, fever(s) or syncope Review of Systems General: Reports: 10 or more systems reviewed and unremarkable except in HPI and below Const: Denies: fever(s) or chills Card: Denies: chest pain or syncope Resp: Denies: dyspnea, productive cough or non-productive cough GI: Reports: abdominal pain, nausea, vomiting, dysphagia and heartburn; Denies: hematemesis or diarrhea : Reports: oliguria; Denies: flank pain or dysuria Musc: Reports: muscle weakness and decrease in muscle mass; Denies: extremity swelling or joint swelling Neuro: Reports: difficulty walking and confusion PFSH ED PFSH: Medical History Neri's esophagus with esophagitis COPD (chronic obstructive pulmonary disease) CVA (cerebral vascular accident) Diverticulosis Duodenitis Dysphagia as late effect of cerebrovascular disease Esophageal stricture GERD (gastroesophageal reflux disease) Iron deficiency anemia Surgical History History of cholecystectomy History of eye surgery History of spinal surgery Family History Brother Cancer Sister Cancer Father Stroke Grandmother Stroke Social History Smoking and tobacco status: current every day smoker cigarettes Packs smoked per day: 1 Alcohol intake: never Physical Exam Narrative: EXAM NARRATIVE: Patient appears older than stated age. He is deconditioned and has decreased muscle bulk. He has poor skin turgor. He is drowsy and has intermittently slurred speech but is able to answer most questions. He has diminished radial pulses. He has generalized weakness. He has some expiratory wheezing but is not in respiratory distress. His heart rate and rhythm are normal on auscultati on. He has diffuse upper abdominal tenderness with some voluntary guarding. He has dry mucous membranes. He has advanced skin aging which appears consistent with stigmata of chronic tobacco smoking. No focal neurologic abnormalities. No skin wounds. No pallor noted. Course Vital Signs: Vital signs: Vital Signs Temperature 97.3 F L 05/03/22 18:37 Pulse Rate 63 05/03/22 22:44 Respiratory Rate 22 H 05/03/22 22:44 Blood Pressure 148/84 05/03/22 22:44 Pulse Oximetry 100 05/03/22 22:44 Oxygen Delivery Me thod 05/03/22 19:40 MDM - Weakness Medical Decision Making Patient appears almost cachectic and has been having poor p.o. intake as well as is suffering the side effects of chemotherapy. Patient has made it clear that he does not want to stay in the hospital. I gave him 2 L of fluid and that seemed to make a world of difference. He is now able to sit up and converse. He is back at his baseline. He reports his upper abdominal pain is at his usual baseline. We talked extensively about his nutrition. He has a low prealbumin and understands that protein calorie malnutrition will lead to inability to tolerate treatment for his cancer if it progresses too far. Therefore he is going to talk with his surgical oncology team to decide whether a feeding tube could be performed due to the location of the tumor. His labs have some chronic abnormalities but there is nothing of great note that has changed acutely. The patient and his family are happy with his improvement in the emergency departme and he will be discharged with ongoing care as an outpatient. Lab Data 05/03/22 19:50 05/03/22 19:50 Laboratory Results WBC 9.1 10^3/uL (4.0-10.0) 05/03/22 19:50 RBC 4.35 10^6/uL (4.1-5.3) 05/03/22 19:50 Hgb 11.7 g/dL (11.7-16.6) 05/03/22 19:50 Hct 36.7 % (42.0-52.0) L 05/03/22 19:50 MCV 84.4 fl (80-94) 05/03/22 19:50 MCH 26.9 pg (28.0-34.0) L 05/03/22 19:50 MCHC 31.9 g/dL (30.0-36.0) 05/03/22 19:50 RDW 13.9 % (12.1-15.1) 05/03/22 19:50 Plt Count 454 10^3/cmm (130-400) H 05/03/22 19:50 MPV 9.3 fL (7.4-10.4) 05/03/22 19:50 Neut % (Auto) 87.0 % 05/03/22 19:50 Lymph % (Auto) 7.2 % 05/03/22 19:50 [place] % (Auto) 4.5 % 05/03/22 19:50 Eos % (Auto) 0.3 % 05/03/22 19:50 Baso % (Auto) 0.3 % 05/03/22 19:50 Neut # (Auto) 7.87 10^3/uL (1.8-7.7) H 05/03/22 19:50 Lymph # (Auto) 0.7 10^3/uL (0.8-4.8) L 05/03/22 19:50 [place] # (Auto) 0.4 10^3/uL (0.2-0.9) 05/03/22 19:50 Eos # (Auto) 0.0 10^3/uL (0.0-0.8) 05/03/22 19:50 Baso # (Auto) 0.0 10^3/uL (0.0-0.1) 05/03/22 19:50 Nucleated RBC % (auto) 0 % 05/03/22 19:50 Nucleated RBCs # 0.0 /100WBC 05/03/22 19:50 Sodium 136 mmol/L (136-145) 05/03/22 19:50 Potassium 4.2 mmol/L (3.5-5.1) 05/03/22 19:50 Chloride 100 mmol/L (98-107) 05/03/22 19:50 Carbon Dioxide 24 mmol/L (22-29) 05/03/22 19:50 Anion Gap 16.2 (5-19) 05/03/22 19:50 BUN 15 mg/dL (8-23) 05/03/22 19:50 Creatinine 0.6 mg/dL (0.7-1.2) L 05/03/22 19:50 GFR Calculation 135.6 mL/min (90-130) H 05/03/22 19:50 Glucose 118 mg/dL (65-115) H 05/03/22 19:50 Calculated Osmolality 284 mOsm/kg (285-295) L 05/03/22 19:50 Calcium 8.8 mg/dL (8.5-10.5) 05/03/22 19:50 Phosphorus 3.0 mg/dL (2.5-4.5) 05/03/22 19:50 Magnesium 1.9 mg/dL (1.7-2.3) 05/03/22 19:50 Total Bilirubin 0.3 mg/dL (0.15-1.2) 05/03/22 19:50 AST 15 U/L (0-40) 05/03/22 19:50 ALT 21 U/L (0-41) 05/03/22 19:50 Alkaline Phosphatase 194 U/L (40-130) H 05/03/22 19:50 Total Protein 6.8 g/dL (6.6-8.7) 05/03/22 19:50 Albumin 3.2 g/dL (3.5-5.2) L 05/03/22 19:50 Globulin 3.6 g/dL (1.3-4.6) 05/03/22 19:50 Prealbumin 12.6 mg/dL (20-40) L 05/03/22 19:50 Discharge Plan Discharge Patient Disposition: Home Clinical Impression: Chemotherapy adverse reaction, Dehydration, Protein-calorie malnutrition, Weakness generalized Condition: Stable Prescriptions: No Action albuterol sulfate [ProAir HFA] 90 mcg/actuation HFA aerosol inhaler 2 puff INHALATION Q4H PRN (Reason: Shortness Of Breath) trazodone 100 mg tablet 100 mg PO BEDTIME hydromorphone 4 mg tablet 4 - 8 mg PO Q4H PRN (Reason: pain) 15 Days Qty: 120 0RF Anoro Ellipta 62.5-25 mcg/actuation blister with device 1 inh inhalation DAILY omeprazole 20 mg capsule,delayed release(DR/EC) 40 mg PO BID Qty: 168 0RF sennosides-docusate sodium [Senokot-S] 8.6-50 mg tablet 1 tab-cap PO BID PRN (Reason: constipation) Qty: 60 2RF prochlorperazine maleate [Compazine] 10 mg tablet 10 mg PO Q6H PRN (Reason: nausea and vomiting) Qty: 30 2RF ondansetron 8 mg tablet,disintegrating 8 mg PO Q6H PRN (Reason: nausea and vomiting) Qty: 30 2RF lorazepam 1 mg tablet 0.5 - 1 mg PO Q6H PRN (Reason: Severe Nausea) Qty: 30 3RF lidocaine HCl [Lidocaine Viscous] 2 % solution 1 applic mucous membrane TID PRN (Reason: pain) Qty: 80 0RF Rx Instructions: add to Maalox 80ml and benadryl 80ml, swish and swallow ondansetron 4 mg film 4 mg PO DAILY PRN (Reason: nausea and vomiting) Qty: 10 0RF iron 325 mg (65 mg iron) Tablet 325 mg PO BID chlorpromazine 25 mg Tablet 25 mg PO Q6H PRN (Reason: Hiccups) Qty: 10 0RF Discharge Orders: Discharge ED (Routine); Ordered 05/03/22 Ordered By: Barry Hastings Referrals: Gamaliel Alcazar MD [Primary Care Provider] - 1-3 days (Needs plan for protein calorie malnutrition coupled with chemo induced weakness and nausea. ) Discharge Diet: Advance as tolerated Discharge Activity: Increase activity as tolerated Patient Instructions: Opioid Safety, Pain Management Activity Restrictions/Additional Instructions: You need to start consuming BOOST or similar high density nutrition supplement three times daily for malnutrition. Talk to Dr Saucedo about a feeding tube if you cannot keep anything down. You should return to ER with any emergent symptoms. Coding Level of Care Code ED Director Global Development for Tyler Mcdonald
[2022-05-03 19:59] LABS: Basophils % 0.3 %; Eosinophils % 0.3 %; Hematocrit 36.7 % (42.0-52.0); Hemoglobin 11.7 g/dL (11.7-16.6); Lymphocytes # 0.7 10^3/uL (0.8-4.8); Lymphocytes % 7.2 %; Mean Corpuscular HGB Conc 31.9 g/dL (30.0-36.0); Mean Corpuscular Hemoglobin 26.9 pg (28.0-34.0); Mean Corpuscular Volume 84.4 fl (80-94); Mean Platelet Volume 9.3 fL (7.4-10.4); Monocytes # 0.4 10^3/uL (0.2-0.9); Monocytes % 4.5 %; Neutrophils # 7.87 10^3/uL (1.8-7.7); Nucleated Red Blood Cells % 0 %; Platelet Count 454 10^3/cmm (130-400); Red Blood Count 4.35 10^6/uL (4.1-5.3); Red Cell Distribution Width 13.9 % (12.1-15.1); White Blood Count 9.1 10^3/uL (4.0-10.0)
[2022-05-03 20:23] LABS: Alanine Aminotransferase 21 U/L (0-41); Albumin Level 3.2 g/dL (3.5-5.2); Alkaline Phosphatase 194 U/L (40-130); Anion Gap 16.2 (5-19); Aspartate Amino Transferase 15 U/L (0-40); Blood Urea Nitrogen 15 mg/dL (8-23); Calcium 8.8 mg/dL (8.5-10.5); Carbon Dioxide 24 mmol/L (22-29); Chloride 100 mmol/L (98-107); Globulin 3.6 g/dL (1.3-4.6); Glomerular Filtration Rate 135.6 mL/min (90-130); Glucose 118 mg/dL (65-115); Magnesium 1.9 mg/dL (1.7-2.3); Osmolality Calculated 284 mOsm/kg (285-295); Potassium 4.2 mmol/L (3.5-5.1); Prealbumin 12.6 mg/dL (20-40); Sodium 136 mmol/L (136-145); Total Bilirubin 0.3 mg/dL (0.15-1.2); Total Protein 6.8 g/dL (6.6-8.7)
[2022-05-03] MEDS: lactated ringers 1,000 ML 999 ML IV ×2 (20:25→21:16)
[2022-05-03 20:36] VITALS: BP 144/77; PULSE 63; RESP 20; O2SAT 99
[2022-05-03 22:44] VITALS: BP 148/84; PULSE 63; RESP 22; O2SAT 100
== END 2022-05-03 22:35 | disposition home or self-care (01) ==
PROVIDERS: Emergency Medicine; Emergency Provider Emergency Medicine; PCP Family Medicine
DX: E46 Unspecified protein-calorie malnutrition (principal); E86.0 Dehydration; T45.1X5A Adverse effect of antineoplastic and immunosuppressive drugs, initial encounter; J44.9 Chronic obstructive pulmonary disease, unspecified; Z86.73 Personal history of transient ischemic attack (TIA), and cerebral infarction without residual deficits; F17.210 Nicotine dependence, cigarettes, uncomplicated
CPT/HCPCS: 80053; 83735; 84100; 84134; 85025; 96360; 96361; 99284; J7120

== ENCOUNTER 2022-05-12 08:00 | Oncology outpatient (recurring) (ONCR) | payer MEDICARE, SELFPAY ==
[2022-04-13 08:25] LABS: Basophils # 0.1 10^3/uL (0.0-0.1); Basophils % 0.5 %; Eosinophils # 0.2 10^3/uL (0.0-0.8); Eosinophils % 1.8 %; Hematocrit 33.1 % (42.0-52.0); Hemoglobin 10.8 g/dL (11.7-16.6); Lymphocytes # 0.9 10^3/uL (0.8-4.8); Lymphocytes % 7.1 %; Mean Corpuscular HGB Conc 32.6 g/dL (30.0-36.0); Mean Corpuscular Hemoglobin 28.8 pg (28.0-34.0); Mean Corpuscular Volume 88.3 fl (80-94); Mean Platelet Volume 9.4 fL (7.4-10.4); Neutrophils # 10.29 10^3/uL (1.8-7.7); Nucleated Red Blood Cells % 0 %; Platelet Count 511 10^3/cmm (130-400); Red Blood Count 3.75 10^6/uL (4.1-5.3); Red Cell Distribution Width 13.5 % (12.1-15.1); White Blood Count 12.5 10^3/uL (4.0-10.0)
[2022-04-13 09:01] LABS: Hepatitis B Surface Antigen Non-Reactive (Nonreactive)
[2022-04-13 09:02] LABS: Alanine Aminotransferase 19 U/L (0-41); Albumin Level 3.2 g/dL (3.5-5.2); Alkaline Phosphatase 210 U/L (40-130); Aspartate Amino Transferase 15 U/L (0-40); Blood Urea Nitrogen 15 mg/dL (8-23); Carbon Dioxide 24 mmol/L (22-29); Chloride 102 mmol/L (98-107); Globulin 3.7 g/dL (1.3-4.6); Glucose 144 mg/dL (65-115); Osmolality Calculated 287 mOsm/kg (285-295); Sodium 137 mmol/L (136-145); Thyroid Stimulating Hormone 0.78 uIU/mL (0.27-4.20); Total Bilirubin 0.2 mg/dL (0.15-1.2); Total Protein 6.9 g/dL (6.6-8.7)
[2022-04-13 09:21] LABS: Hepatitis A Antibody IgM Non-Reactive (Nonreactive); Hepatitis B Core AB, Total Non-Reactive (Nonreactive); Hepatitis B Surface AB 3.5 (11.5-1000); Hepatitis C Virus Antibody Non-Reactive (Nonreactive)
[2022-04-13] MEDS: palonosetron 0.25 mg/5 mL SDV IVP (09:35)
[2022-04-13] MEDS: sodium chloride 0.9% 250 ML 100 ML IV (09:35)
[2022-04-13 09:56] LABS: Immunoglobulin IGG 915 mg/dL (700-1600)
[2022-04-13] MEDS: nivolumab 240 MG in sodium chloride 0.9% 250 ML 548 MG IV (09:59)
[2022-04-13] MEDS: dextrose 5% 250 ML 100 ML IV (10:40)
[2022-04-13] MEDS: leucovorin 720 MG in dextrose 5% 250 ML 62.5 MG IV (10:40)
[2022-04-13 10:57] VITALS: RESP 18
[2022-04-13] MEDS: HYDROmorphone 1 mg/mL INJ 1 mL 2 MG IVP (10:57)
[2022-04-13] MEDS: fluorouraciL 4,300 MG, elastomeric pump 1 PUMP in sodium chloride 0.9% (100 ml) 6 ML IV (14:02)
[2022-04-13 14:25] VITALS: BP 154/86; PULSE 75; RESP 16; TEMP 36.3; O2SAT 98
[2022-04-15 13:00] VITALS: BP 127/76; PULSE 76; RESP 18; TEMP 36.6; O2SAT 98
[2022-04-15] MEDS: sodium chloride 0.9% 1,000 ML 999 ML IV (13:28)
[2022-04-15] MEDS: ondansetron 2 mg/ML SDV 2 mL 8 MG IVP (13:28)
[2022-04-15] MEDS: dexamethasone 10 mg/mL INJ IVP (13:46)
[2022-04-15 13:56] VITALS: RESP 18
[2022-04-15] MEDS: HYDROmorphone 1 mg/mL INJ 1 mL 2 MG IVP (13:56)
[2022-04-15] MEDS: sodium chloride 0.9% 100 mL Bag IV (14:15)
--- NOTE | 2022-04-15 14:24 | XR_ITS ---
WS: [id number] Abdomen series, Flat and upright 04/15/2022 Clinical Data: severe pain and constipation Comparison: None. Findings: No free air is seen beneath the diaphragms. No abnormal intra-abdominal masses or calcifica tions are seen. There is a small amount of air in the stomach and colon. On the erect film there are is a catheter overlying the right side of the abdomen. The bladder is partly full. There is a levosco liosis of the lumbar spine. XR/XR abdomen min 2V [id number] Impression: Negative flat and upright films of the abdomen.
[2022-04-15 15:45] VITALS: BP 128/72; PULSE 78; RESP 18; TEMP 36.6; O2SAT 98
[2022-04-21 11:43] LABS: Basophils # 0.1 10^3/uL (0.0-0.1); Basophils % 0.4 %; Eosinophils # 0.2 10^3/uL (0.0-0.8); Eosinophils % 1.5 %; Hematocrit 32.9 % (42.0-52.0); Hemoglobin 10.6 g/dL (11.7-16.6); Lymphocytes % 7.3 %; Mean Corpuscular HGB Conc 32.2 g/dL (30.0-36.0); Mean Corpuscular Hemoglobin 27.9 pg (28.0-34.0); Mean Corpuscular Volume 86.6 fl (80-94); Mean Platelet Volume 9.5 fL (7.4-10.4); Monocytes % 7.2 %; Neutrophils # 11.21 10^3/uL (1.8-7.7); Neutrophils % 82.4 %; Nucleated Red Blood Cells % 0 %; Platelet Count 474 10^3/cmm (130-400); Red Cell Distribution Width 13.4 % (12.1-15.1); White Blood Count 13.6 10^3/uL (4.0-10.0)
[2022-04-21 12:03] LABS: Alanine Aminotransferase 21 U/L (0-41); Albumin Level 3.2 g/dL (3.5-5.2); Alkaline Phosphatase 224 U/L (40-130); Anion Gap 12.7 (5-19); Aspartate Amino Transferase 14 U/L (0-40); Blood Urea Nitrogen 16 mg/dL (8-23); Calcium 8.9 mg/dL (8.5-10.5); Carbon Dioxide 26 mmol/L (22-29); Chloride 99 mmol/L (98-107); Globulin 3.4 g/dL (1.3-4.6); Glomerular Filtration Rate 97.3 mL/min (90-130); Glucose 113 mg/dL (65-115); Osmolality Calculated 280 mOsm/kg (285-295); Potassium 3.7 mmol/L (3.5-5.1); Sodium 134 mmol/L (136-145); Total Bilirubin 0.2 mg/dL (0.15-1.2); Total Protein 6.6 g/dL (6.6-8.7)
[2022-04-21 13:49] VITALS: RESP 16; O2SAT 98
[2022-04-21] MEDS: HYDROmorphone 1 mg/mL INJ 1 mL 2 MG IVP (13:49)
[2022-04-21] MEDS: sodium chloride 0.9% 1,000 ML 999 ML IV (13:49)
[2022-04-21] MEDS: ondansetron 2 mg/ML SDV 2 mL 8 MG IVP (14:58)
[2022-04-21] MEDS: sodium chloride 0.9% 500 ML 999 ML IV (15:00)
[2022-04-21] MEDS: LORazepam 2 mg/mL INJ 1 mL 0.5 MG IVP (15:01)
--- NOTE | 2022-04-21 15:09 | PC.NURSE ---
Pt was given 0.5 mg Ativan for severe nausea. 1.5 mg wasted. Nila Solano R.N. witnessed waste/lc
[2022-04-21 15:31] VITALS: BP 134/74; PULSE 73; RESP 16; TEMP 36.7; O2SAT 98
--- NOTE | 2022-04-21 15:38 | PC.NURSE ---
Pt stated his pain was tolerable, nausea gone and pt was ready to go home after fluids, pain med and antinausea meds adm./lc
[2022-04-28 08:20] LABS: Basophils # 0.1 10^3/uL (0.0-0.1); Basophils % 0.5 %; Eosinophils # 0.2 10^3/uL (0.0-0.8); Eosinophils % 1.6 %; Hematocrit 35.8 % (42.0-52.0); Lymphocytes # 0.9 10^3/uL (0.8-4.8); Lymphocytes % 8.1 %; Mean Corpuscular HGB Conc 30.7 g/dL (30.0-36.0); Mean Platelet Volume 9.2 fL (7.4-10.4); Monocytes % 9.3 %; Nucleated Red Blood Cells % 0 %; Platelet Count 505 10^3/cmm (130-400); Red Blood Count 4.07 10^6/uL (4.1-5.3)
[2022-04-28 08:39] LABS: Alanine Aminotransferase 13 U/L (0-41); Albumin Level 3.2 g/dL (3.5-5.2); Alkaline Phosphatase 187 U/L (40-130); Anion Gap 17.2 (5-19); Aspartate Amino Transferase 14 U/L (0-40); Blood Urea Nitrogen 13 mg/dL (8-23); Calcium 8.7 mg/dL (8.5-10.5); Carbon Dioxide 23 mmol/L (22-29); Chloride 103 mmol/L (98-107); Globulin 3.3 g/dL (1.3-4.6); Glomerular Filtration Rate 97.3 mL/min (90-130); Glucose 110 mg/dL (65-115); Osmolality Calculated 289 mOsm/kg (285-295); Potassium 4.2 mmol/L (3.5-5.1); Sodium 139 mmol/L (136-145); Total Bilirubin 0.3 mg/dL (0.15-1.2); Total Protein 6.5 g/dL (6.6-8.7)
[2022-04-28] MEDS: sodium chloride 0.9% 1,000 ML 999 ML IV (11:27)
[2022-04-28] MEDS: pantoprazole 40 mg SDV IVP (11:28)
[2022-04-28 11:31] VITALS: RESP 14
[2022-04-28] MEDS: HYDROmorphone 1 mg/mL INJ 1 mL 4 MG IVP (11:31)
[2022-04-28] MEDS: fluconazole premix 200 MG/100 ML PREMIX 100 MG IV (11:45)
[2022-04-28] MEDS: famotidine 20 mg/2 mL INJ IVP (12:49)
[2022-04-28] MEDS: palonosetron 0.25 mg/5 mL SDV IVP (12:51)
[2022-04-28] MEDS: nivolumab 240 MG in sodium chloride 0.9% 250 ML 548 MG IV (13:13)
[2022-04-28] MEDS: dextrose 5% 250 ML 100 ML IV (13:52)
[2022-04-28] MEDS: leucovorin 710 MG in dextrose 5% 250 ML 62.5 MG IV (13:55)
[2022-04-28] MEDS: chlorPROMazine 25 mg Tablet PO (14:12)
[2022-04-28] MEDS: fluorouraciL 4,250 MG, elastomeric pump 1 PUMP in sodium chloride 0.9% (100 ml) 7 ML IV (16:42)
[2022-04-28 17:01] VITALS: BP 172/91; PULSE 86; TEMP 36.7; O2SAT 99
[2022-04-30 10:51] VITALS: BP 148/79; PULSE 80; RESP 18; TEMP 36; O2SAT 99
--- NOTE | 2022-04-30 10:51 | PC.NURSE ---
pt states he has been feeling poorly for last several days, states his throat is hurting al the time, spoke with dr lemons nurse, will send in magic mouthwash swish and swallow for pt. pt given instructions for use. pt refuses hydration for today, states I just want to go home.
[2022-05-12 08:33] LABS: Basophils # 0.1 10^3/uL (0.0-0.1); Basophils % 0.4 %; Eosinophils # 0.1 10^3/uL (0.0-0.8); Hematocrit 34.9 % (42.0-52.0); Hemoglobin 10.6 g/dL (11.7-16.6); Lymphocytes # 0.7 10^3/uL (0.8-4.8); Lymphocytes % 6.5 %; Mean Corpuscular HGB Conc 30.4 g/dL (30.0-36.0); Mean Corpuscular Hemoglobin 26.8 pg (28.0-34.0); Mean Corpuscular Volume 88.1 fl (80-94); Mean Platelet Volume 9.5 fL (7.4-10.4); Monocytes # 1.2 10^3/uL (0.2-0.9); Neutrophils # 9.32 10^3/uL (1.8-7.7); Neutrophils % 81.5 %; Nucleated Red Blood Cells % 0 %; Platelet Count 364 10^3/cmm (130-400); Red Blood Count 3.96 10^6/uL (4.1-5.3); Red Cell Distribution Width 14.6 % (12.1-15.1); White Blood Count 11.5 10^3/uL (4.0-10.0)
[2022-05-12 09:05] LABS: Alanine Aminotransferase 16 U/L (0-41); Albumin Level 2.8 g/dL (3.5-5.2); Alkaline Phosphatase 181 U/L (40-130); Anion Gap 12.6 (5-19); Aspartate Amino Transferase 14 U/L (0-40); Blood Urea Nitrogen 13 mg/dL (8-23); Calcium 8.3 mg/dL (8.5-10.5); Carbon Dioxide 24 mmol/L (22-29); Chloride 103 mmol/L (98-107); Glucose 112 mg/dL (65-115); Osmolality Calculated 283 mOsm/kg (285-295); Potassium 3.6 mmol/L (3.5-5.1); Sodium 136 mmol/L (136-145); Thyroid Stimulating Hormone 1.45 uIU/mL (0.27-4.20); Total Bilirubin 0.2 mg/dL (0.15-1.2); Total Protein 5.8 g/dL (6.6-8.7)
[2022-05-12] MEDS: sodium chloride 0.9% 250 ML 75 ML IV (10:10)
[2022-05-12] MEDS: palonosetron 0.25 mg/5 mL SDV IVP (10:13)
[2022-05-12] MEDS: nivolumab 240 MG in sodium chloride 0.9% 250 ML 548 MG IV (10:37)
[2022-05-12 11:30] VITALS: BMI 22.8
[2022-05-12] MEDS: dextrose 5% 250 ML 75 ML IV (11:30)
[2022-05-12] MEDS: LORazepam 2 mg/mL INJ 1 mL 0.5 MG IVP (11:31)
[2022-05-12] MEDS: leucovorin 710 MG in dextrose 5% 250 ML 80.25 MG IV (11:39)
[2022-05-12] MEDS: fluorouraciL 4,250 MG, elastomeric pump 1 PUMP in sodium chloride 0.9% (100 ml) 7 ML IV (15:07)
[2022-05-12 15:17] VITALS: BP 138/87; PULSE 75; TEMP 36.1; O2SAT 99
== END 2022-05-12 23:59 | disposition home or self-care (01) ==
PROVIDERS: PCP Family Medicine; Visit Provider Internal Medicine Medical Oncology
DX: C16.0 Malignant neoplasm of cardia (principal); Z51.12 Encounter for antineoplastic immunotherapy; Z51.11 Encounter for antineoplastic chemotherapy; C77.8 Secondary and unspecified malignant neoplasm of lymph nodes of multiple regions; R11.0 Nausea; R63.0 Anorexia; Z68.22 Body mass index [BMI] 22.0-22.9, adult; R53.1 Weakness; R10.84 Generalized abdominal pain; Z79.899 Other long term (current) drug therapy; R53.83 Other fatigue
CPT/HCPCS: 36591; 74019; 80053; 82784; 84443; 85025; 86705; 86706; 86709; 86803; 87340; 96365; 96366; 96367; 96368; 96375; 96413; 96415; 96416; 96417; 96523; 99214; C9113; J0640; J1100; J1170; J1450; J2060; J2405; J2469; J3490; J7030; J7040; J7050; J7060; J9190; J9263; J9299; Q0161

== ENCOUNTER 2022-05-16 21:44 | Inpatient (IN) | payer MEDICARE, SELFPAY ==
[2022-05-16] VITALS (12 sets, daily range): BP systolic 139–191; BP diastolic 76–115; PULSE 62–76; RESP 15–22; TEMP 36.7–37.1; O2SAT 93–100; BMI 22.1
[2022-05-16 21:55] LABS: Glucose Point of Care 100 mg/dL (70-110)
--- NOTE | 2022-05-16 21:56 | XRR_ITS ---
PROCEDURE INFORMATION: Exam: XR Chest Exam date and time: 05/16/2022 11:13 PM Age: 66 years old Clinical indication: Shortness of breath; Additional info: Weakness TECHNIQUE: Imaging protocol: Radiologic exam of the chest. Views: 1 view. COMPARISON: CR XR chest 2V* [id number] 09/10/2021 2:15 PM FINDINGS: Tubes, catheters and devices: Right chest port terminates in the proximal right atrium. Lungs: Unremarkable. No consolidation. Pleural spaces: Unremarkable. No pleural effusion. No pneumothorax. Heart/Mediastinum: Unremarkable. No cardiomegaly. Bones/joints: Unremarkable. XR/XR chest 1V portable [id number] IMPRESSION: No acute findings.
--- NOTE | 2022-05-16 21:56 | ECG_ITS ---
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 Measurements Intervals [place] Rate: 74 P: 9 PA: 145 QRS: 3 QRSD: 89 T: 48 QT: 376 QTc: 419 Interpretive Statements SINUS RHYTHM POSSIBLE RIGHT VENTRICULAR CONDUCTION DELAY [RSR (QR) IN V1/V2] Compared to ECG 09/19/2018 09:30:22 No significant changes Electronically Signed On 05-17-2022 19:05:26 FITNESS MANAGER by Joni Argueta M.D. [id number]
--- NOTE | 2022-05-16 21:56 | CTR_ITS ---
PROCEDURE INFORMATION: Exam: CT Head Without Contrast Exam date and time: 05/16/2022 10:01 PM Age: 66 years old Clinical indication: Stroke-like symptoms; Headache; Additional info: Symptoms of acute stroke TECHNIQUE: Imaging protocol: Computed tomography of the head without contrast. Radiation optimization: All CT scans at this facility use at least one of these dose optimization techniques: automated exposure control; mA and/or kV adjustment per patient size (includes targeted exams where dose is matched to clinical indication); or iterative reconstruction. Other technique: STROKE PROTOCOL was implemented. COMPARISON: CT head wo con* [id number] 08/02/2015 2:26 PM RADIATION DOSE METRICS: Total DLP (mGy-cm): 1034.57 FINDINGS: Brain: No hemorrhage. No edema. Focal areas of encephalomalacia from prior infarcts noted in the right parietal lobe. Moderate diffuse cerebral atrophy. No mass effect. Cerebral ventricles: No ventriculomegaly. Paranasal sinuses: Visualized sinuses are unremarkable. No fluid levels. Mastoid air cells: Visualized mastoid air cells are well aerated. Bones/joints: Unremarkable. No acute fracture. Soft tissues: Unremarkable. CT/CT head thrombolytic [id number] IMPRESSION: 1. No acute intracranial abnormality. 2. Focal areas of encephalomalacia from prior infarcts noted in the right parietal lobe, new from most recent comparison study. ASSESSMENT: ASPECTS ([place] Stroke Program Early CT Score) is 10.
--- NOTE | 2022-05-16 21:56 | CTR_ITS ---
PROCEDURE INFORMATION: Exam: CTA Head With Contrast, Arteriography Exam date and time: 05/16/2022 10:04 PM Age: 66 years old Clinical indication: Stroke-like symptoms; Headache; Bilateral facial droop; Additional info: Weakness, facial droop TECHNIQUE: Imaging protocol: Computed tomographic angiography of the head with contrast. Exam focused on the arteries. 3D rendering (Not supervised by radiologist): MIP and/or 3D reconstructed images were created by the technologist. Radiation optimization: All CT scans at this facility use at least one of these dose optimization techniques: automated exposure control; mA and/or kV adjustment per patient size (includes targeted exams where dose is matched to clinical indication); or iterative reconstruction. Contrast material: OMNIPAQUE 350; Contrast volume: 100 ml; Contrast route: INTRAVENOUS (IV); COMPARISON: CT head thrombolytic [id number] 05/16/2022 10:01 PM RADIATION DOSE METRICS: Total DLP (mGy-cm): 453.83 FINDINGS: ANTERIOR CIRCULATION: Right internal carotid artery: Intracranial segment is patent with no significant stenosis. No aneurysm. Right middle cerebral artery: No occlusion or significant stenosis. No aneurysm. Right anterior cerebral artery: No occlusion or significant stenosis. No aneurysm. Left internal carotid artery: Intracranial segment is patent with no significant stenosis. No aneurysm. Left middle cerebral artery: No occlusion or significant stenosis. No aneurysm. Left anterior cerebral artery: No occlusion or significant stenosis. No aneurysm. POSTERIOR CIRCULATION: Right vertebral artery: Focal eccentric filling defect measuring 4 mm in length within the distal right vertebral artery just proximal to the basilar artery as best noted on series 7, image 137. No aneurysm. Left vertebral artery: No occlusion or significant stenosis. No aneurysm. Basilar artery: There is a focal centrally located rounded 3 mm filling defect within the proximal basilar artery. No aneurysm. Right posterior cerebral artery: No occlusion or significant stenosis. No aneurysm. Left posterior cerebral artery: No occlusion or significant stenosis. No aneurysm. Brain: No definite mass, mass effect, or midline shift. Cerebral ventricles: No ventriculomegaly. Bones/joints: Unremarkable. No acute fracture. Soft tissues: Unremarkable. SHANTA at 10:55 PM BODY MECHANIC on 05/16/2022. The findings were acknowledged and understood. PROCEDURE INFORMATION: Exam: CTA Neck With Contrast Exam date and time: 05/16/2022 10:04 PM Age: 66 years old Clinical indication: Stroke-like symptoms; Headache; Bilateral facial droop; Additional info: Weakness, facial droop TECHNIQUE: Imaging protocol: Computed tomographic angiography of the neck with contrast. 3D rendering (Not supervised by radiologist): MIP and/or 3D reconstructed images were created by the technologist. Radiation optimization: All CT scans at this facility use at least one of these dose optimization techniques: automated exposure control; mA and/or kV adjustment per patient size (includes targeted exams where dose is matched to clinical indication); or iterative reconstruction. Contrast material: OMNIPAQUE 350; Contrast volume: 100 ml; Contrast route: INTRAVENOUS (IV); COMPARISON: CT cervical spin wo con* [id number] 12/27/2017 6:53 AM RADIATION DOSE METRICS: Total DLP (mGy-cm): 453.83 FINDINGS: Right common carotid artery: No stenosis. No dissection or occlusion. Right internal carotid artery: Mild stenosis at the origin of the right internal carotid artery. No dissection or occlusion. Right external carotid artery: No occlusion or stenosis of the origin. Left common carotid artery: No stenosis. No dissection or occlusion. Left internal carotid artery: Mild stenosis at the origin of the left internal carotid artery. No dissection or occlusion. Left external carotid artery: No occlusion or stenosis of the origin. Right vertebral artery: No stenosis. No dissection or occlusion. Left vertebral artery: No stenosis. No dissection or occlusion. Soft tissues: Normal. No significant soft tissue swelling. Bones/joints: No acute fracture. CT/CT angio headneck* [id number] IMPRESSION: Eccentrically located filling defect within the distal right vertebral artery which appears to reflect asymmetric plaque or partially occlusive thrombus. There is an additional 3 mm central filling defect within the proximal basilar artery which likely reflects partially occlusive thrombus. THIS REPORT CONTAINS FINDINGS THAT MAY BE CRITICAL TO PATIENT CARE. The findings were verbally communicated via telephone conference with MANISHA IMPRESSION: Mild stenosis at the origins of the internal carotid arteries. No severe stenosis or occlusion. REFERENCES: NASCET CRITERIA. The degree of stenosis in the cervical segment of the internal carotid artery is based on NASCET criteria. Normal is no stenosis. Mild is less than 50% stenosis. Moderate is 50-69% stenosis. Severe is 70% to 99% stenosis. Total occlusion is no detectable patent lumen.
--- NOTE | 2022-05-16 21:58 | ED_ITS ---
HPI - Neuro Symptoms/Deficit General: Chief Complaint: Neuro Symptoms/Deficit Stated Complaint: stroke like symptoms Time Seen by Provider: 05/16/22 21:47 Source: patient and family History of Present Illness: 66-year-old male who 1 hour prior to arrival com plained to his that his head was hurting. He also complained of being weak. She noticed that he was slurring his speech. He could not walk at home. He has a history of gastric cancer. 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 From this, he has some residual weakness including right sided ptosis. Last Observed Normal: 20:45 Timing confirmed by: spouse History of same: No Severity: moderate Quality: weak Relieving factors: none Exacerbating factors: none Context: sudden onset Associated symptoms: Reports headache(s), nausea and vomiting; Deny chest pain Review of Systems Const: Denies: fever(s) or chills Eyes: Reports: blurry vision (chronic) ENMT: Denies: throat pain Card: Denies: chest pain or palpitations Resp: Denies: dyspnea or productive cough GI: Reports: nausea and vomiting; Denies: abdominal pain Musc: Denies: neck pain Neuro: Reports: headache(s), weakness in extremities, lack of coordination, difficulty walking, dizziness and Slurred speech present; Denies: numbness in extremities PFSH ED PFSH: Medical History Neri's esophagus with esophagitis COPD (chronic obstructive pulmonary disease) CVA (cerebral vascular accident) Diverticulosis Duodenitis Dysphagia as late effect of cerebrovascular disease Esophageal stricture GERD (gastroesophageal reflux disease) Iron deficiency anemia Surgical History History of cholecystectomy History of eye surgery History of spinal surgery Family History Brother Cancer Sister Cancer Father Stroke Grandmother Stroke Social History Smoking and tobacco status: current every day smoker cigarettes Packs smoked per day: 1 Alcohol intake: never NIH stroke score NIHSS: Level Of Consciousness - 1a: 0 Level Of Consciousness Questions - 1b: Both Correct Level Of Consciousness Commands - 1c: Both Correct Best Gaze - 2: Normal Visual Chiu - 3: No Visual Loss Facial Palsy - 4: Partial Paralysis Motor Arm Right - 5: No Drift Motor Arm Left - 5: No Drift Motor Leg Right - 6: No Drift Motor Leg Left - 6: Drift Limb Ataxia - 7: Present In Two Limbs If Amputation Is Answered In Any Of The Above - Explain: symmetrical Sensory - 8: Normal Best Language - 9: No Aphasia Dysarthia - 10: Mild/Moderate Dysarthia Extinction And Inattention - 11: 0 Score: Total Score: 6 Physical Exam Const: GENERAL APPEARANCE: cooperative, ill appearing and frail appearing (mildly) HENMT: COMMON NORMALS: normocephalic and atraumatic HEAD & SCALP: n ormocephalic and atraumatic Eye: VISUAL CHIU: No peripheral vision loss OTHER: ptosis with eyelid closed right side. Neck/C-Spine: COMMON NORMALS: full ROM Chest: CHEST: Yes Symmetrical chest wall rise Resp: COMMON NORMALS: normal respiratory effort, No use of accessory muscles and clear to auscultation bilaterally AUSCULTATION: clear to auscultation bilaterally Cardio: COMMON NORMALS: regular rate and regular rhythm RATE: regular rate RHYTHM: regular rhythm GI: COMMON NORMALS: Normal to inspection, nondistended, normoactive bowel sounds present Neuro: LUCIA COMA SCALE: document GCS findings [place] coma scale eye opening: Spontaneous Lucia coma scale verbal response: Orientated Lucia coma scale motor response: Obey commands [place] coma scale total score: 15 COORDINATION/BALANCE: No rarwmr-wp-[id number] test normal, No gsgv-kv-mizj test normal and sways with eyes open SPEECH: abnormal speech Details: slurred, no expressive aphasia and no receptive aphasia COORDINATION: rxbybf-[id number] test abnormal and grdv-ba-jhco test abnormal Psych: COMMON NORMALS: mental status grossly normal and cooperative Course Consultations: Consultation #1: Bruce Consultation #2: Yehuda Neurology @[facility] stroke team Consultation #3: Valentina Neurology at [facility] Additional Consultation(s): [facility] Vital Signs: Vital signs: Vital Signs Temperature 97.3 F L 05/17/22 02:41 Pulse Rate 61 05/17/22 03:18 Respiratory Rate 18 05/17/22 03:18 Blood Pressure 191/96 05/17/22 03:00 Pulse Oximetry 99 05/17/22 03:18 Oxygen Delivery Me thod 05/17/22 03:18 MDM - Neuro Symptoms/Deficit Medical Decision Making Consulted neurology after initial examination. The patient is ataxic essentially in all 4 extremities, unable to stand or walk, and does complain of dizziness. His headache is improving. He has some dysarthria although he has no significant facial droop or aphasia. Given his findings on exam, in my opinion in neurology's opinion, he could be having a posterior circulation stroke. Advised to give thrombolytic therapy, which was given. Bolus and infusion are essentially done at this point. The patient has had no worsening or significant improvement in his symptoms. 2 separate doses of labetalol 10 mg were given for blood pressures greater than 180/100. Blood pressure currently 173/89. Heart rate is 66, saturations are 100% on room air. Obviously, initial head CT was negative for hemorrhage. CTA of the brain showed potential for a right vertebral artery and basilar artery partially occlusive plaque versus thrombus. Spoke with neurology again. Recommendations are to consult with a tertiary center given the patient's symptoms and findings on CTA to see if any interventional treatment could be warranted. We have a call out to [facility] neurology stroke team currently. Spoke with the neurologist at [facility]. The question is is the vertebral artery lesion amenable to intervention. Neurology there notes that sometimes it is, and the do that procedure at [place]. She also states that there is a long transfer time between [place] in [place]. We have checked whether, and no flights are available due to low ceilings. She suggests we try [facility] in [place] first which is 100 miles closer to see if they may take the patient for potential intervention. I contacted [facility], and spoke with their neurologist on-call. He showed images to their neuroradiology team, and their statement was that they would not intervene on this lesion at this time, and do not know that any team would based on its location. The patient himself had requested not to go to [place] if possible. With no intervention deemed necessary by neuroradiology, the patient and family would like to stay here. He will go to the ICU for the night. IV fluid support, close monitoring of blood pressure, and neurochecks per protocol. Hospitalist was contacted, and agrees to the admission. Lab Data 05/16/22 21:53 05/16/22 21:53 Radiology Impressions Chest X-Ray 05/16/22 21:56 IMPRESSION: No acute findings. Head CT 05/16/22 21:56 IMPRESSION: 1. No acute intracranial abnormality. 2. Focal areas of encephalomalacia from prior infarcts noted in the right parietal lobe, new from most recent comparison study. ASSESSMENT: ASPECTS ([place] Stroke Program Early CT Score) is 10. Head/Neck CTA 05/16/22 21:56 IMPRESSION: Eccentrically located filling defect within the distal right vertebral artery which appears to reflect asymmetric plaque or partially occlusive thrombus. There is an additional 3 mm central filling defect within the proximal basilar artery which likely reflects partially occlusive thrombus. THIS REPORT CONTAINS FINDINGS THAT MAY BE CRITICAL TO PATIENT CARE. The findings were verbally communicated via telephone conference with MANISHA IMPRESSION: Mild stenosis at the origins of the internal carotid arteries. No severe stenosis or occlusion. REFERENCES: NASCET CRITERIA. The degree of stenosis in the cervical segment of the internal carotid artery is based on NASCET criteria. Normal is no stenosis. Mild is less than 50% stenosis. Moderate is 50-69% stenosis. Severe is 70% to 99% stenosis. Total occlusion is no detectable patent lumen. Laboratory Results WBC 6.9 10^3/uL (4.0-10.0) 05/16/22 21:53 RBC 4.25 10^6/uL (4.1-5.3) 05/16/22 21:53 Hgb 11.1 g/dL (11.7-16.6) L 05/16/22 21:53 Hct 35.5 % (42.0-52.0) L 05/16/22 21:53 MCV 83.5 fl (80-94) 05/16/22 21:53 MCH 26.1 pg (28.0-34.0) L 05/16/22 21:53 MCHC 31.3 g/dL (30.0-36.0) 05/16/22 21:53 RDW 14.7 % (12.1-15.1) 05/16/22 21:53 Plt Count 459 10^3/cmm (130-400) H 05/16/22 21:53 MPV 9.8 fL (7.4-10.4) 05/16/22 21:53 Neut % (Auto) 79.7 % 05/16/22 21:53 Lymph % (Auto) 13.0 % 05/16/22 21:53 [place] % (Auto) 3.7 % 05/16/22 21:53 Eos % (Auto) 2.4 % 05/16/22 21:53 Baso % (Auto) 0.6 % 05/16/22 21:53 Neut # (Auto) 5.53 10^3/uL (1.8-7.7) 05/16/22 21:53 Lymph # (Auto) 0.9 10^3/uL (0.8-4.8) 05/16/22 21:53 [place] # (Auto) 0.3 10^3/uL (0.2-0.9) 05/16/22 21:53 Eos # (Auto) 0.2 10^3/uL (0.0-0.8) 05/16/22 21:53 Baso # (Auto) 0.0 10^3/uL (0.0-0.1) 05/16/22 21:53 Nucleated RBC % (auto) 0 % 05/16/22 21:53 Nucleated RBCs # 0.0 /100WBC 05/16/22 21:53 PT 13.50 SECONDS (12.1-14.9) 05/16/22 21:53 INR 1.00 (0.8-1.2) 05/16/22 21:53 APTT 30.0 SECONDS (23.9-36.7) 05/16/22 21:53 Sodium 136 mmol/L (136-145) 05/16/22 21:53 Potassium 4.1 mmol/L (3.5-5.1) 05/16/22 21:53 Chloride 103 mmol/L (98-107) 05/16/22 21:53 Carbon Dioxide 24 mmol/L (22-29) 05/16/22 21:53 Anion Gap 13.1 (5-19) 05/16/22 21:53 BUN 13 mg/dL (8-23) 05/16/22 21:53 Creatinine 0.8 mg/dL (0.7-1.2) 05/16/22 21:53 GFR Calculation 97.3 mL/min (90-130) 05/16/22 21:53 Glucose 109 mg/dL (65-115) 05/16/22 21:53 POC Glucose 100 mg/dL (70-110) 05/16/22 21:52 Calculated Osmolality 283 mOsm/kg (285-295) L 05/16/22 21:53 Calcium 8.3 mg/dL (8.5-10.5) L 05/16/22 21:53 Total Bilirubin 0.2 mg/dL (0.15-1.2) 05/16/22 21:53 AST 18 U/L (0-40) 05/16/22 21:53 ALT 25 U/L (0-41) 05/16/22 21:53 Alkaline Phosphatase 228 U/L (40-130) H 05/16/22 21:53 Total Protein 5.8 g/dL (6.6-8.7) L 05/16/22 21:53 Albumin 2.7 g/dL (3.5-5.2) L 05/16/22 21:53 Globulin 3.1 g/dL (1.3-4.6) 05/16/22 21:53 Urine Color Yellow (Yellow) 05/16/22 02:52 Urine Appearance Clear (CLEAR) 05/16/22 02:52 Urine pH 7 (5-7) 05/16/22 02:52 Ur Specific [place] 1.005 (1.005-1.030) 05/16/22 02:52 Urine Protein Neg (Negative) 05/16/22 02:52 Urine Glucose (UA) Norm (Normal) 05/16/22 02:52 Urine Ketones Negative (Negative) 05/16/22 02:52 Urine Blood Neg (Negative) 05/16/22 02:52 Urine Nitrate Negative (Negative) 05/16/22 02:52 Urine Bilirubin Neg (Negative) 05/16/22 02:52 Urine Urobilinogen Neg mg/dL (Negative) 05/16/22 02:52 Ur Leukocyte Esterase Negative (Negative) 05/16/22 02:52 Urine Opiates Screen Positive ng/mL (Negative) H 05/16/22 02:52 Ur Barbiturates Screen Negative ng/mL (Negative) 05/16/22 02:52 Ur Phencyclidine Scrn Negative ng/mL (Negative) 05/16/22 02:52 Ur Amphetamines Screen Negative ng/mL (Negative) 05/16/22 02:52 U Benzodiazepines Scrn Positive ng/mL (Negative) H 05/16/22 02:52 Urine Cocaine Screen Negative ng/mL (Negative) 05/16/22 02:52 U Marijuana (THC) Screen Negative ng/mL (Negative) 05/16/22 02:52 Critical Care Time Critical Care Time: Critical Care Time: Yes Total Critical Care Time: 75 Attestation: This case had a high probability of a clinically significant, sudden, or life threatening deterioration of this patient's condition which required my full and direct attention, intervention and personal management. Time is independent of any procedures performed Discharge Plan Discharge Patient Disposition: Admitted As Inpatient Admit Provider: Albaro Ely Clinical Impression: Cerebrovascular accident, Adenocarcinoma of gastric cardia, Weakness, Ataxia Condition: Fair Coding Level of Care Code ED Airplane Pilot Helper for Chg Fwd Exam Comprehensive
[2022-05-16] MEDS: iohexol 350 mg/mL 500 mL Btl (per mL) IV (22:10)
[2022-05-16] MEDS: ondansetron 2 mg/ML SDV 2 mL 4 MG IVP ×2 (22:15→22:24)
[2022-05-16 22:17] LABS: Basophils % 0.6 %; Eosinophils # 0.2 10^3/uL (0.0-0.8); Eosinophils % 2.4 %; Hematocrit 35.5 % (42.0-52.0); Hemoglobin 11.1 g/dL (11.7-16.6); Lymphocytes # 0.9 10^3/uL (0.8-4.8); Mean Corpuscular HGB Conc 31.3 g/dL (30.0-36.0); Mean Corpuscular Hemoglobin 26.1 pg (28.0-34.0); Mean Corpuscular Volume 83.5 fl (80-94); Mean Platelet Volume 9.8 fL (7.4-10.4); Monocytes # 0.3 10^3/uL (0.2-0.9); Monocytes % 3.7 %; Neutrophils # 5.53 10^3/uL (1.8-7.7); Neutrophils % 79.7 %; Nucleated Red Blood Cells % 0 %; Platelet Count 459 10^3/cmm (130-400); Red Blood Count 4.25 10^6/uL (4.1-5.3); Red Cell Distribution Width 14.7 % (12.1-15.1); White Blood Count 6.9 10^3/uL (4.0-10.0)
[2022-05-16] MEDS: labetalol 5 mg/mL SDV 20mL 10 MG IVP ×2 (22:30→22:44)
[2022-05-16 22:33] LABS: Alanine Aminotransferase 25 U/L (0-41); Albumin Level 2.7 g/dL (3.5-5.2); Alkaline Phosphatase 228 U/L (40-130); Anion Gap 13.1 (5-19); Aspartate Amino Transferase 18 U/L (0-40); Blood Urea Nitrogen 13 mg/dL (8-23); Calcium 8.3 mg/dL (8.5-10.5); Carbon Dioxide 24 mmol/L (22-29); Chloride 103 mmol/L (98-107); Globulin 3.1 g/dL (1.3-4.6); Glomerular Filtration Rate 97.3 mL/min (90-130); Glucose 109 mg/dL (65-115); Osmolality Calculated 283 mOsm/kg (285-295); Potassium 4.1 mmol/L (3.5-5.1); Sodium 136 mmol/L (136-145); Total Bilirubin 0.2 mg/dL (0.15-1.2); Total Protein 5.8 g/dL (6.6-8.7)
[2022-05-16] MEDS: sodium chloride 0.9% 50 ML 200 ML IV (23:44)
[2022-05-17] VITALS (62 sets, daily range): BP systolic 125–191; BP diastolic 67–115; PULSE 60–91; RESP 10–34; TEMP 36.3–36.9; O2SAT 92–100; BMI 21.9
[2022-05-17] MEDS: morphine 4 mg/mL SDV 1 mL IVP (02:19)
[2022-05-17] MEDS: sodium chloride 0.9% 1,000 ML 999 ML IV (02:20)
[2022-05-17 03:03] LABS: Add Urine Microscopic? NO; Charge for UA Resulting for Rev
--- NOTE | 2022-05-17 03:11 | P.HP_ITS ---
Providers/Chief Complaint Admitting Physician: Albaro Ely MD Primary Care Provider: Gamaliel Alcazar MD Chief Complaint: stroke like symptoms History of Present Illness Molina Hayward is a 66 year old male with previous history of brainstem stroke 2003 presented to the hospital with chief complaint of slurring of speech and being weak. is stating that around 9 PM patient was complaining of extreme headache and speech was slurred that prompted his visit to the ER. His NIH was 6, neurology recommended tPA, CT head unremarkable, CTA head and neck did show filling defect distal right vertebral artery proximal basilar artery, ER physician spoke with [facility] in [place] neurology and neuroradiologist, both stated that they are not 100% confident whether they will opt for thrombolectomy for this patient. Patient has been admitted to the ICU, he was complaining of left-sided chest discomfort, blood pressure after tPA 191/96 mmHg, start patient on nitroglycerin drip, post tPA could not get IV draws for now, stat EKG did not show any ischemic or infarctive changes Patient was complaining of chest pain he was hypotensive after getting tPA nitroglycerin drip was started, that dropped his blood pressure 179/93mmhg he was complaining of headache, his chest pain has improved 2 EKGs have not shown any ischemic or infarctive changes however telemetry was showing hyperacute T waves Patient is doing well on room air is stating at baseline he is able to walk independently but is has chronic ataxia gets dizzy very easily, with previous brainstem stroke he has weakness of right side of his face Review of Systems Const: Reports: chills and fatigue Eyes: Denies: change in vision ENMT: Denies: throat pain Card: Reports: chest pain Resp: Denies: dyspnea GI: Denies: abdominal pain : Denies: flank pain Musc: Denies: neck pain Skin/Breast: Denies: rash Neuro: Reports: headache(s) Psych: Reports: anxiety Endo: Denies: polyuria Joseph/Lymph: Denies: easy bruising All/Imm: Denies: urticaria Medications/Allergies Home Medications Medication Instructions Recorded Confirmed Last Taken Type albuterol sulfate 90 mcg/actuation 2 puff inhalation Q4H PRN 06/18/19 05/12/22 Unknown History aerosol inhaler (ProAir HFA) Shortness Of Breath trazodone 100 mg tablet 100 mg PO BEDTIME 06/18/19 05/12/22 02/21/22 History umeclidinium 62.5 mcg-vilanterol 1 inh inhalation DAILY 01/28/22 04/28/22 Unknown History 25 mcg/actuation powdr for inhalation (Anoro Ellipta) ferrous sulfate 325 mg (65 mg 325 mg PO BID 02/22/22 05/12/22 02/22/22 History iron) tablet (iron) omeprazole 20 mg capsule,delayed 40 mg PO BID #168 caps 02/25/22 05/12/22 Unknown Rx release sennosides 8.6 mg-docusate sodium 1 tab-cap PO BID PRN constipation 02/25/22 05/12/22 Unknown Rx 50 mg tablet (Senokot-S) #60 tabs lorazepam 1 mg tablet 0.5 - 1 mg PO Q6H PRN Severe 04/15/22 05/12/22 Unknown Rx Nausea #30 tabs ondansetron 8 mg disintegrating 8 mg PO Q6H PRN nausea and 04/15/22 05/12/22 Unknown Rx tablet vomiting #30 tabs hydromorphone 4 mg tablet 4 - 8 mg PO Q4H PRN pain 15 days 04/21/22 05/12/22 Unknown Rx #120 tabs dronabinol 5 mg capsule 5 mg PO BID #60 caps 05/12/22 05/12/22 Unknown Rx lidocaine HCl 2 % mucosal solution 1 applic mucous membrane TID PRN 05/12/22 Unknown Rx (Lidocaine Viscous) pain #80 mL chlorpromazine 25 mg tablet 25 mg PO Q6H PRN Hiccups #90 tabs 05/14/22 Unknown Rx Allergies Allergy/AdvReac Type Severity Reaction Status Date / Time metoclopramide [From Reglan] Allergy Intermediate extrapyrami Verified 05/12/22 09:29 susy PFSH Acute PFSH: Medical History Neri's esophagus with esophagitis COPD (chronic obstructive pulmonary disease) CVA (cerebral vascular accident) Diverticulosis Duodenitis Dysphagia as late effect of cerebrovascular disease Esophageal stricture GERD (gastroesophageal reflux disease) Iron deficiency anemia Surgical History History of cholecystectomy History of eye surgery History of spinal surgery Family History Brother Cancer Sister Cancer Father Stroke Grandmother Stroke Social History Smoking and tobacco status: current every day smoker cigarettes Packs smoked per day: 1 Alcohol intake: never Vitals/I&O/Wt Last Vital Signs Temp 97.3 F L 05/17/22 02:41 Pulse 69 05/17/22 03:00 Resp 17 05/17/22 03:00 BP 191/96 05/17/22 03:00 Pulse Ox 100 05/17/22 02:45 O2 Del Method 05/17/22 02:00 05/16/22 05/16/22 05/17/22 14:59 22:59 06:59 Intake Total 150 / 150 Output Total 100 / 100 Balance 50 / 50 Weight last 48 hrs Weight 65.453 kg Weight 66.224 kg Physical Exam Narrative: Patient has chronic right-sided facial weakness Right eye ptosis Is able to move all of his extremities Abdomen soft S1, S2 No active chest pain Doing well on room air at the bedside Patient is able to follow commands No weakness of upper or lower extremities noted Data 05/16/22 21:53 05/16/22 21:53 A&P Assessment and plan (1) Cerebrovascular accident: (2) Weakness: (3) Ataxia: (4) Fatigue: (5) Adenocarcinoma of gastric cardia: (6) GERD (gastroesophageal reflux disease): (7) Neri's esophagus with esophagitis: Plan Acute CVA Status post tPA Weakness of extremities improved as per the family He has chronic ataxia and right-sided facial weakness [facility] neuroradiologist spoke with the ER physician, they did not accept the transfer because they were not sure whether they will opt for thrombolectomy Patient is hypotensive received nitroglycerin which was stopped because of his extreme headache, current blood pressure 179/93 mmHg I have given him an IV push of hydralazine No active chest pain EKG is not showing any ischemic or infarctive changes Requested troponin series Patient has history of stomach cancer he has been taken off Plavix because of the GI bleed PT/OT/ST Full code We will start patient on mechanical soft diet Attestations Medical Necessity Statement*: Anticipating more than 2 midnights for management of stroke Time Spent in Patient Care: 40 Coding Level of Care Code Acute Aeronautical Engineering Technologist for Chg Fwd Diagnoses Cerebrovascular accident I63.9 Weakness R53.1 Ataxia R27.0 Fatigue R53.83 Adenocarcinoma of gastric cardia C16.0 GERD (gastroesophageal reflux disease) K21.9 Neri's esophagus with esophagitis K22.70; K20.90
[2022-05-17 03:16] LABS: Amphetamines Screen Urine Negative (Negative); Barbiturates Screen Urine Negative (Negative); Benzodiazepines Screen Urine Positive (Negative); Cocaine Screen Urine Negative (Negative); Opiate Screen Urine Positive (Negative); PCP Screen Urine Negative (Negative); THC Screen Urine Negative (Negative)
[2022-05-17 03:17] LABS: Bilirubin Urine Neg (Negative); Blood Urine Neg (Negative); Glucose Urine UA Norm (Normal); Ketones Urine Negative (Negative); Leukocyte Esterase Urine Negative (Negative); Nitrate Urine Negative (Negative); Protein Urine Neg (Negative); Specific Gravity, Urine 1.005 (1.005-1.030); Urine Appearance Clear (CLEAR); Urine Color Yellow (Yellow); Urobilinogen Urine Neg (Negative); pH Urine 7 (5-7)
[2022-05-17] MEDS: nitroglycerin drip 50 MG/250 ML PREMIX IV (03:53)
--- NOTE | 2022-05-17 04:03 | ECG_ITS ---
[facility] Test Date: 2022-05-17 Pat Name: Molina Hayward Department: Room: [facility] Gender: Male Preparation Operator: : [id number] Requested By: Albaro Ely Order Number: [id number] Daniela MD: Joni Argueta M.D. Measurements Intervals [place] Rate: 67 P: 50 FL: 177 QRS: 11 QRSD: 77 T: 43 QT: 412 QTc: 435 Interpretive Statements SINUS RHYTHM LOW QRS VOLTAGE IN PRECORDIAL LEADS [QRS DEFLECTION < 1.0 mV IN CHEST LEADS] Compared to ECG 05/16/2022 21:51:01 Low QRS voltage now present Electronically Signed On 05-17-2022 19:05:00 SUPERVISOR FINISHING DEPARTMENT by Joni Argueta M.D. [id number]
[2022-05-17 04:14] LABS: Vitamin B12 484 pg/mL (232-1245)
[2022-05-17] MEDS: hyDRALAzine 20 mg/mL INJ 1 mL 10 MG IVP (05:11)
[2022-05-17] MEDS: morphine IR 15 mg Tablet PO (05:30)
[2022-05-17 06:12] LABS: Troponin(5th) Baseline 10 ng/L (0-15)
[2022-05-17] MEDS: ondansetron 2 mg/ML SDV 2 mL 4 MG IVP ×3 (06:20→20:20)
[2022-05-17] MEDS: lidocaine 2% viscous 15 ML, aluminum-mag hydrox-simethicon 30 ML, sucralfate oral liq 1 GM PO (06:45)
--- NOTE | 2022-05-17 07:26 | PC.OT ---
HOLD OT EVAL TODAY DUE TO TPA ADMINISTRATION. WILL ATTEMPT TOMORROW.
[2022-05-17 07:59] LABS: Troponin 5 2HR 9.82 ng/L (0-15)
[2022-05-17] MEDS: sennosides-docusate Tablet 1 TAB PO (08:01)
[2022-05-17] MEDS: pantoprazole DR 40 mg Tablet PO (08:01)
[2022-05-17 08:36] LABS: Troponin 5 2HR Delta -0.18 ABS# (0-10)
[2022-05-17] MEDS: lidocaine 2% viscous 1.667 ML, diphenhydrAMINE oral liq 4.165 MG, aluminum-mag hydrox-s... MUCOUS MEM (09:56)
[2022-05-17 12:48] LABS: Troponin 5 6HR 8.75 ng/L (0-15)
[2022-05-17 12:51] LABS: Troponin 5 6HR Delta -1.25 ng/L (0-12)
--- NOTE | 2022-05-17 13:24 | CT_ITS ---
WS: [id number] CT HEAD NONCONTRAST HISTORY: follow up TPA TECHNIQUE: Contiguous axial imaging performed through the brain in 3.0 mm imaging. Bone and soft tiss ue windows. Sagittal and coronal reformats reviewed. All CT scans at [facility] use at least one of these dose optimization techniques: automated exposure control; mA and/or kV adjustment per pa tient size (includes targeted exams where dose is matched to clinical indication); or iterative recon struction. DLP: 1110.48 mGy.cm COMPARISON: 05/16/2022 No acute intracranial hemorrhage, midline shift or mass effect. Mild atrophy and small vessel ischemic disease. Prior infarct with encephalomalacia involving the pos terior RIGHT parietal occipital lobes. No new acute infarct is identified. Ventricles: Normal size with no hydrocephalus. No inferior displacement of the cerebellar tonsils. Paranasal sinuses: As visualized are clear. Mastoid air cells: Well pneumatized. Calvarium and scalp: Skull is intact with no soft tissue edema or swelling. CT/CT head wo con* [id number] IMPRESSION: 1. No acute intracranial hemorrhage or edema. 2. Remote posterior RIGHT parietal occipital infarct with encephalomalacia. 3. Mild atrophy and small vessel ischemic disease.
--- NOTE | 2022-05-17 13:28 | PM.PN ---
Subjective Subjective: History and physical was reviewed. Patient was admitted earlier today, following stroke symptoms for which he received tPA. He reports he is close to his baseline currently, his agrees. Medications: Reviewed: Yes Vitals/I&O/Wt Last Vital Signs Temp 97.3 F L 05/17/22 04:00 Pulse 70 05/17/22 13:00 Resp 15 05/17/22 13:19 BP 175/85 05/17/22 13:00 Pulse Ox 99 05/17/22 13:19 O2 Del Method 05/17/22 10:58 05/16/22 05/17/22 05/17/22 22:59 06:59 14:59 Intake Total 366.375 / 366.375 Output Total 450 / 450 Balance -83.625 / -83.625 Weight last 48 hrs Weight 65.453 kg Weight 66.224 kg Physical Exam Narrative: General exam no distress Neurologic: No obvious focal deficits but I did not ambulate him. Right esotropia is noted. Neck is supple no lymphadenopathy thyromegaly Cardiovascular regular rate and rhythm without murmur Lungs clear Abdomen is soft with positive bowel sounds Extremities no cyanosis clubbing or edema Data 05/16/22 21:53 05/16/22 21:53 A&P Assessment and plan (1) Cerebrovascular accident: Post tPA for CVA symptoms of slurred speech, worsening balance and weakness Statin After 24 hours consider Plavix or aspirin. These were both discontinued in the past secondary to concerns of GI bleeding from his adenocarcinoma of the stomach which is currently under treatment. I discussed with him reinitiating these and he is amenable to resuming Plavix alone following his CVA, and monitoring for any bleeding CTA was performed showing right distal vertebral artery with an asymmetric plaque or partially occlusive thrombus and possible partial occlusive thrombus in the proximal basilar artery. This was not thought to be amenable to intervention. Therapy consultations Repeat CT today (2) Adenocarcinoma of gastric cardia: Currently being treated by oncology. Last chemotherapy April 28. Plan Other medical problems as outlined in past medical history Full code currently No anticoagulation has just received tPA within the last 24 hours. Attestations Medical Necessity Statement*: Requires continued hospitalization secondary to CVA requiring tPA, currently early in the course and not yet even 24 hours post tPA Coding Level of Care Code Acute Delicatessen Department Manager for radha Mcdonald Diagnoses Cerebrovascular accident I63.9 Adenocarcinoma of gastric cardia C16.0
[2022-05-17] MEDS: trazodone 100 mg Tablet PO (19:59)
[2022-05-17] MEDS: atorvastatin 40 mg Tablet 80 MG PO (19:59)
[2022-05-18] VITALS (29 sets, daily range): BP systolic 113–174; BP diastolic 67–98; PULSE 60–77; RESP 6–28; O2SAT 87–99
[2022-05-18 03:27] LABS: Basophils % 0.7 %; Eosinophils # 0.1 10^3/uL (0.0-0.8); Eosinophils % 1.5 %; Hemoglobin 10.6 g/dL (11.7-16.6); Lymphocytes # 0.8 10^3/uL (0.8-4.8); Lymphocytes % 13.3 %; Mean Corpuscular HGB Conc 32.1 g/dL (30.0-36.0); Mean Corpuscular Hemoglobin 26.6 pg (28.0-34.0); Mean Corpuscular Volume 82.7 fl (80-94); Mean Platelet Volume 9.7 fL (7.4-10.4); Monocytes # 0.5 10^3/uL (0.2-0.9); Monocytes % 8.4 %; Neutrophils # 4.48 10^3/uL (1.8-7.7); Neutrophils % 75.1 %; Nucleated Red Blood Cells % 0 %; Platelet Count 390 10^3/cmm (130-400); Red Blood Count 3.99 10^6/uL (4.1-5.3); Red Cell Distribution Width 14.8 % (12.1-15.1)
[2022-05-18 03:49] LABS: Anion Gap 13.3 (5-19); Blood Urea Nitrogen 11 mg/dL (8-23); Calcium 8.3 mg/dL (8.5-10.5); Carbon Dioxide 24 mmol/L (22-29); Chloride 100 mmol/L (98-107); Glomerular Filtration Rate 135.6 mL/min (90-130); Glucose 100 mg/dL (65-115); Osmolality Calculated 275 mOsm/kg (285-295); Potassium 4.3 mmol/L (3.5-5.1); Sodium 133 mmol/L (136-145)
[2022-05-18] MEDS: sodium chloride 0.9% 1,000 ML 150 ML IV ×2 (07:33→11:23)
[2022-05-18] MEDS: sennosides-docusate Tablet 1 TAB PO (08:20)
[2022-05-18] MEDS: pantoprazole DR 40 mg Tablet PO (08:20)
--- NOTE | 2022-05-18 14:01 | PM.DCS ---
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 On evaluation the emergency department it was thought he is was a candidate for tPA and did receive tPA. CT head demonstrated no obvious hemorrhage. CTA of the neck demonstrated possible partial thrombus right distal vertebral artery and proximal basilar artery. This was not thought to be amenable to intervention. He received hydration, close monitoring. Statin was initiated. The following day, repeat CT head demonstrated no hemorrhage. Patient had prior history of GI bleeding on Plavix and aspirin when gastric carcinoma was diagnosed. He was amenable to restarting Plavix, but not both. This was initiated prior to his discharge as well. On May 18 he requested to go home. He still had significant weakness and would benefit from home health. He refused any kind of nursing facility placement. He had no evidence of atrial fibrillation while in the hospital. Echocardiogram will be completed aa an outpatient as will not change current treatment. Physical Exam Narrative: General exam no distress Neck is supple no lymphadenopathy thyromegaly Cardiovascular regular rate and rhythm with out murmur Lungs clear Abdomen is soft with positive bowel sounds Extremities no cyanosis clubbing or edema Neuro: Some generalized weakness, but no focal weakness. Speech normal. Discharge Data Studies Completed and Pending Completed Studies During Hospitalization Category Date Time Status CT angio headneck* [id number] Stat Cat Scan 05/16/22 21:[address] head thrombolytic [id number] Stat Cat Scan 05/16/22 21:[address] head wo con* [id number] Routine Cat Scan 05/17/22 13:24 Completed XR chest 1V portable [id number] Stat Exams 05/16/22 21:56 Completed Radiology Impressions Chest X-Ray 05/16/22 21:56 IMPRESSION: No acute findings. Head/Neck CTA 05/16/22 21:56 IMPRESSION: Eccentrically located filling defect within the distal right vertebral artery which appears to reflect asymmetric plaque or partially occlusive thrombus. There is an additional 3 mm central filling defect within the proximal basilar artery which likely reflects partially occlusive thrombus. THIS REPORT CONTAINS FINDINGS THAT MAY BE CRITICAL TO PATIENT CARE. The findings were verbally communicated via telephone conference with MANISHA, IMPRESSION: Mild stenosis at the origins of the internal carotid arteries. No severe stenosis or occlusion. REFERENCES: NASCET CRITERIA. The degree of stenosis in the cervical segment of the internal carotid artery is based on NASCET criteria. Normal is no stenosis. Mild is less than 50% stenosis. Moderate is 50-69% stenosis. Severe is 70% to 99% stenosis. Total occlusion is no detectable patent lumen. Head CT 05/17/22 13:24 IMPRESSION: 1. No acute intracranial hemorrhage or edema. 2. Remote posterior RIGHT parietal occipital infarct with encephalomalacia. 3. Mild atrophy and small vessel ischemic disease. Laboratory Results WBC 6.0 10^3/uL (4.0-10.0) 05/18/22 02:14 RBC 3.99 10^6/uL (4.1-5.3) L 05/18/22 02:14 Hgb 10.6 g/dL (11.7-16.6) L 05/18/22 02:14 Hct 33.0 % (42.0-52.0) L 05/18/22 02:14 MCV 82.7 fl (80-94) 05/18/22 02:14 MCH 26.6 pg (28.0-34.0) L 05/18/22 02:14 MCHC 32.1 g/dL (30.0-36.0) 05/18/22 02:14 RDW 14.8 % (12.1-15.1) 05/18/22 02:14 Plt Count 390 10^3/cmm (130-400) 05/18/22 02:14 MPV 9.7 fL (7.4-10.4) 05/18/22 02:14 Neut % (Auto) 75.1 % 05/18/22 02:14 Lymph % (Auto) 13.3 % 05/18/22 02:14 [place] % (Auto) 8.4 % 05/18/22 02:14 Eos % (Auto) 1.5 % 05/18/22 02:14 Baso % (Auto) 0.7 % 05/18/22 02:14 Neut # (Auto) 4.48 10^3/uL (1.8-7.7) 05/18/22 02:14 Lymph # (Auto) 0.8 10^3/uL (0.8-4.8) 05/18/22 02:14 [place] # (Auto) 0.5 10^3/uL (0.2-0.9) 05/18/22 02:14 Eos # (Auto) 0.1 10^3/uL (0.0-0.8) 05/18/22 02:14 Baso # (Auto) 0.0 10^3/uL (0.0-0.1) 05/18/22 02:14 Nucleated RBC % (auto) 0 % 05/18/22 02:14 Nucleated RBCs # 0.0 /100WBC 05/18/22 02:14 PT 13.50 SECONDS (12.1-14.9) 05/16/22 21:53 INR 1.00 (0.8-1.2) 05/16/22 21:53 APTT 30.0 SECONDS (23.9-36.7) 05/16/22 21:53 Sodium 133 mmol/L (136-145) L 05/18/22 02:14 Potassium 4.3 mmol/L (3.5-5.1) 05/18/22 02:14 Chloride 100 mmol/L (98-107) 05/18/22 02:14 Carbon Dioxide 24 mmol/L (22-29) 05/18/22 02:14 Anion Gap 13.3 (5-19) 05/18/22 02:14 BUN 11 mg/dL (8-23) 05/18/22 02:14 Creatinine 0.6 mg/dL (0.7-1.2) L 05/18/22 02:14 GFR Calculation 135.6 mL/min (90-130) H 05/18/22 02:14 Glucose 100 mg/dL (65-115) 05/18/22 02:14 POC Glucose 100 mg/dL (70-110) 05/16/22 21:52 Calculated Osmolality 275 mOsm/kg (285-295) L 05/18/22 02:14 Calcium 8.3 mg/dL (8.5-10.5) L 05/18/22 02:14 Total Bilirubin 0.2 mg/dL (0.15-1.2) 05/16/22 21:53 AST 18 U/L (0-40) 05/16/22 21:53 ALT 25 U/L (0-41) 05/16/22 21:53 Alkaline Phosphatase 228 U/L (40-130) H 05/16/22 21:53 Troponin T Baseline 10 ng/L (0-15) 05/17/22 05:43 Troponin T 120 Minute 9.82 ng/L (0-15) 05/17/22 07:36 Delta Troponin T -0.18 ABS# (0-10) L 05/17/22 07:36 Troponin T Hi Sens 6Hr 8.75 ng/L (0-15) 05/17/22 11:45 Troponin T Hi Sens 6Hr Delta -1.25 ng/L (0-12) L 05/17/22 11:45 Total Protein 5.8 g/dL (6.6-8.7) L 05/16/22 21:53 Albumin 2.7 g/dL (3.5-5.2) L 05/16/22 21:53 Globulin 3.1 g/dL (1.3-4.6) 05/16/22 21:53 Vitamin B12 484 pg/mL (232-1245) 05/16/22 21:53 Urine Color Yellow (Yellow) 05/16/22 02:52 Urine Appearance Clear (CLEAR) 05/16/22 02:52 Urine pH 7 (5-7) 05/16/22 02:52 Ur Specific B[place] 1.005 (1.005-1.030) 05/16/22 02:52 Urine Protein Neg (Negative) 05/16/22 02:52 Urine Glucose (UA) Norm (Normal) 05/16/22 02:52 Urine Ketones Negative (Negative) 05/16/22 02:52 Urine Blood Neg (Negative) 05/16/22 02:52 Urine Nitrate Negative (Negative) 05/16/22 02:52 Urine Bilirubin Neg (Negative) 05/16/22 02:52 Urine Urobilinogen Neg mg/dL (Negative) 05/16/22 02:52 Ur Leukocyte Esterase Negative (Negative) 05/16/22 02:52 Urine Opiates Screen Positive ng/mL (Negative) H 05/16/22 02:52 Ur Barbiturates Screen Negative ng/mL (Negative) 05/16/22 02:52 Ur Phencyclidine Scrn Negative ng/mL (Negative) 05/16/22 02:52 Ur Amphetamines Screen Negative ng/mL (Negative) 05/16/22 02:52 U Benzodiazepines Scrn Positive ng/mL (Negative) H 05/16/22 02:52 Urine Cocaine Screen Negative ng/mL (Negative) 05/16/22 02:52 U Marijuana (THC) Screen Negative ng/mL (Negative) 05/16/22 02:52 Vitals Last Vital Signs Temp 98.4 F 05/17/22 20:00 Pulse 70 05/18/22 12:00 Resp 21 H 05/18/22 12:00 BP 159/86 05/18/22 12:00 Pulse Ox 99 05/18/22 12:00 O2 Del Method 05/18/22 08:05 Discharge Plan Discharge Patient Disposition: Home Health Service Condition: Fair Prescriptions: New atorvastatin 40 mg Tablet 80 mg PO BEDTIME Qty: 30 0RF clopidogrel 75 mg Tablet 75 mg PO DAILY Qty: 30 0RF Continued albuterol sulfate [ProAir HFA] 90 mcg/actuation HFA aerosol inhaler 2 puff INHALATION Q4H PRN (Reason: Shortness Of Breath) trazodone 100 mg tablet 100 mg PO BEDTIME hydromorphone 4 mg tablet 4 - 8 mg PO Q4H PRN (Reason: pain) 15 Days Qty: 120 0RF Anoro Ellipta 62.5-25 mcg/actuation blister with device 1 inh inhalation DAILY omeprazole 20 mg capsule,delayed release(DR/EC) 40 mg PO BID Qty: 168 0RF sennosides-docusate sodium [Senokot-S] 8.6-50 mg tablet 1 tab-cap PO BID PRN (Reason: constipation) Qty: 60 2RF dronabinol 5 mg capsule 5 mg PO BID Qty: 60 2RF Rx Instructions: administer before lunch and evening meal/dinner ondansetron 8 mg tablet,disintegrating 8 mg PO Q6H PRN (Reason: nausea and vomiting) Qty: 30 2RF lorazepam 1 mg tablet 0.5 - 1 mg PO Q6H PRN (Reason: Severe Nausea) Qty: 30 3RF lidocaine HCl [Lidocaine Viscous] 2 % solution 1 applic mucous membrane TID PRN (Reason: pain) Qty: 80 0RF Rx Instructions: add to Maalox 80ml and benadryl 80ml, swish and swallow chlorpromazine 25 mg tablet 25 mg PO Q6H PRN (Reason: Hiccups) Qty: 90 2RF ferrous sulfate [iron] 325 mg (65 mg iron) Tablet 325 mg PO BID Discontinued pravastatin 20 mg tablet 20 mg PO DAILY Discharge Orders: Discharge Order (Routine); Ordered 05/18/22 Ordered By: Lorenzo Cota Other Ambulatory Orders: CV. echo complete* [id number] (Routine) Timeframe: 2 Weeks Facility: [facility] - Location: Radiology Ordered By: Lorenzo Cota DME: [employer] (Order) Location: None Selected Ordered By: Lorenzo Cota Referrals: Neema Barrera MD [Physician] - 2 weeks (CVA follow up) Gamaliel Alcazar MD [Primary Care Provider] - 4-7 days Discharge Diet: Usual diet Discharge Activity: Increase activity as tolerated Patient Instructions: Opioid Safety Activity Restrictions/Additional Instructions: Take medicine as prescribed Keep follow-up as arranged Return for any concerns Patient's Health Concerns: CVA Assessment: CVA Plan of Treatment: Plavix 75 mg daily, Lipitor 80 mg every night Discharge Attestations Time Spent in Discharge Care*: greater than 30 min Quality Metrics Clinical Quality Measures [ Cerebrovascular Accident { Contraindication to Antithrombotic: None; antithrombotic prescribed; Contraindication to Anticoagulation: Other (not indicated); Contraindication to Statin: None; Statin prescribed; Contraindication to tPA: None; TPA given; Reason stroke education not provided: Stroke education provided to patient;}] Coding Level of Care Code Acute g FW DC note Diagnoses Cerebrovascular accident I63.9 Adenocarcinoma of gastric cardia C16.0
[2022-05-18] MEDS: clopidogrel 75 mg Tablet PO (14:21)
--- NOTE | 2022-05-18 15:37 | PC.NURSE ---
All d/c instructions educated to patient and , D/C paperwork signed, patient out of facility at this time transported home by
== END 2022-05-18 14:00 | disposition home health service (06) | DRG 62 ==
LOC: ER 23:48 → ICU 05-17 01:52
PROVIDERS: Admitting Provider Internal Medicine; Emergency Provider Emergency Medicine; PCP Family Medicine; Visit Provider Internal Medicine
DX: I63.9 Cerebral infarction, unspecified (principal); C16.0 Malignant neoplasm of cardia; R47.81 Slurred speech; R29.706 NIHSS score 6; Z79.899 Other long term (current) drug therapy; Z79.891 Long term (current) use of opiate analgesic; Z79.51 Long term (current) use of inhaled steroids; I69.393 Ataxia following cerebral infarction; I69.392 Facial weakness following cerebral infarction; K22.70 Barrett's esophagus without dysplasia; J44.9 Chronic obstructive pulmonary disease, unspecified; K21.00 Gastro-esophageal reflux disease with esophagitis, without bleeding
CPT/HCPCS: 36415; 36416; 70450; 70496; 70498; 71045; 80048; 80053; 80306; 81003; 82607; 82962; 84484; 85025; 85610; 85730; 92523; 92610; 93005; 96374; 96375; 97110; 97116; 97162; 97165; 99285; J0360; J2270; J2405; J2997; J3490; J7030; Q9967

== ENCOUNTER → 2022-05-24 11:50 | Outpatient (BNVA) | payer MEDICARE, SELFPAY | PROVIDERS: PCP Family Medicine; Visit Provider Specialist | DX: I69.398 Other sequelae of cerebral infarction (principal); H49.9 Unspecified paralytic strabismus; H02.409 Unspecified ptosis of unspecified eyelid; I65.09 Occlusion and stenosis of unspecified vertebral artery; C16.9 Malignant neoplasm of stomach, unspecified | CPT/HCPCS: 99205 ==

== ENCOUNTER 2022-06-01 08:00 | Outpatient (CLI) | payer MEDICARE, SELFPAY ==
--- NOTE | 2022-06-01 08:10 | USCV_ITS ---
Molina Hayward Age: 66 Gender: M : 1955 Exam Date: 06/01/2022 08:22 Ordering Phys: Lorenzo Cota MD Technologist: Exam Location: [facility] [place] Indication: chest pain, cva BP: 130 / 75 HR: 73 Rhythm: Sinus Technical Quality: Adequate MEASUREMENTS (Male / Female) Normal Values 2D ECHO LV Diastolic Diameter PLAX 3.6 cm 4.2 - 5.9 / 3.9 - 5.3 cm LV Systolic Diameter PLAX 2.5 cm IVS Diastolic Thickness 1.2 cm 0.6 - 1.0 / 0.6 - 0.9 cm IVS Systolic Thickness 1.6 cm LVPW Diastolic Thickness 1.2 cm 0.6 - 1.0 / 0.6 - 0.9 cm LVPW Systolic Thickness 1.7 cm LVOT Diameter 2.0 cm LV Ejection Fraction 2D Teich 59.3 % LV Ejection Fraction MOD 2C 68.1 % LV Ejection Fraction 2C AL 68.9 % LA Diameter 3.1 cm Aorta at Sinotubular Diameter 2.8 cm M-MODE Aortic Annulus Diameter 3.6 cm LA Ao Ratio MM 0.9 MV E Point Septal Separation 0.6 cm DOPPLER AV Peak Velocity 158.0 cm/s LVOT Peak Velocity 122.0 cm/s AV Area Cont Eq vti 2.5 cm squared AV Area Cont Eq pk 2.5 cm squared MV Area PHT 5.0 cm squared Mitral E to A Ratio 0.9 MV E' Velocity 39.0 cm/s Mitral E to MV E' Ratio 8.6 Mitral E to LV E' Lateral Ratio 8.4 Mitral E to LV E' Septal Ratio 8.9 TR Peak Velocity 137.7 cm/s TR Peak Gradient 7.6 mmHg TV Peak E Velocity 82.0 cm/s Right Atrial Pressure 3.0 mmHg Pulmonary Artery Systolic Pressu 10.6 mmHg RV Acceleration Time 0.1 s FINDINGS Left Ventricle Normal left ventricular size, systolic function and wall thickness, with no regional wall motion abnormalities. Left ventricular ejection fraction is estimated at 65 %. Normal diastolic function. Right Ventricle Normal right ventricular size and systolic function. Right ventricular systolic pressure 10.6 mmHg. Right Atrium Normal right atrial size. Left Atrium Normal left atrial size. Mitral Valve Structurally normal mitral valve. No mitral valve stenosis. Mild mitral valve regurgitation. Aortic Valve Aortic valve not well visualized. No aortic valve stenosis. No aortic valve regurgitation. Tricuspid Valve Structurally normal tricuspid valve. Trace tricuspid valve regurgitation. Pulmonic Valve Structurally normal pulmonic valve. No pulmonary valve stenosis. No pulmonary valve regurgitation. Pericardium No pericardial effusion. Aorta Normal size aortic root and proximal ascending aorta. IVC Inferior vena cava not visualized. CONCLUSIONS 1. Normal left ventricular size, systolic function and wall thickness, with no regional wall motion abnormalities. Left ventricular ejection fraction is estimated at 65 %. Normal diastolic function. 2. Normal right ventricular size and systolic function. 3. Mild mitral valve regurgitation. 4. No change when compared to study dated 09/26/2015. Radha Kaminski MD (Electronically Signed) Final Date: 01 June 2022 14:11 S
== END 2022-06-01 08:01 | disposition home or self-care (01) ==
LOC: RAD 08:02
PROVIDERS: PCP Family Medicine; Visit Provider Internal Medicine
DX: I63.9 Cerebral infarction, unspecified (principal); R07.9 Chest pain, unspecified; I34.0 Nonrheumatic mitral (valve) insufficiency
CPT/HCPCS: 93306

== ENCOUNTER 2022-06-09 08:00 | Oncology outpatient (recurring) (ONCR) | payer MEDICARE, SELFPAY ==
[2022-05-14] MEDS: sodium chloride 0.9% 500 ML 999 ML IV (11:37)
[2022-05-26 08:27] LABS: Basophils % 0.3 %; Eosinophils # 0.2 10^3/uL (0.0-0.8); Eosinophils % 1.7 %; Hematocrit 31.2 % (42.0-52.0); Hemoglobin 9.8 g/dL (11.7-16.6); Lymphocytes # 0.8 10^3/uL (0.8-4.8); Lymphocytes % 6.8 %; Mean Corpuscular HGB Conc 31.4 g/dL (30.0-36.0); Mean Corpuscular Hemoglobin 25.9 pg (28.0-34.0); Mean Corpuscular Volume 82.3 fl (80-94); Mean Platelet Volume 9.1 fL (7.4-10.4); Monocytes # 1.2 10^3/uL (0.2-0.9); Monocytes % 10.7 %; Neutrophils # 9.18 10^3/uL (1.8-7.7); Neutrophils % 79.6 %; Nucleated Red Blood Cells % 0 %; Platelet Count 473 10^3/cmm (130-400); Red Blood Count 3.79 10^6/uL (4.1-5.3); Red Cell Distribution Width 16.3 % (12.1-15.1); White Blood Count 11.5 10^3/uL (4.0-10.0)
[2022-05-26 09:39] LABS: Alanine Aminotransferase 15 U/L (0-41); Albumin Level 2.5 g/dL (3.5-5.2); Alkaline Phosphatase 211 U/L (40-130); Anion Gap 13.6 (5-19); Aspartate Amino Transferase 16 U/L (0-40); Blood Urea Nitrogen 15 mg/dL (8-23); Calcium 8.3 mg/dL (8.5-10.5); Carbon Dioxide 25 mmol/L (22-29); Chloride 102 mmol/L (98-107); Globulin 3.1 g/dL (1.3-4.6); Glomerular Filtration Rate 97.3 mL/min (90-130); Glucose 91 mg/dL (65-115); Osmolality Calculated 284 mOsm/kg (285-295); Potassium 3.6 mmol/L (3.5-5.1); Sodium 137 mmol/L (136-145); Total Bilirubin 0.3 mg/dL (0.15-1.2); Total Protein 5.6 g/dL (6.6-8.7)
[2022-05-26 09:55] LABS: Iron 23 ug/dL (59-158); Percent Saturation 14.2 % (20-50); Total Iron Binding Capacity 161 mcg/dl; Unsaturated Iron Binding 138 ug/dL (112-347)
[2022-05-26] MEDS: sodium chloride 0.9% 1,000 ML 999 ML IV (10:15)
[2022-05-26] MEDS: ferric carboxy (IVPB) 750 MG in sodium chloride 0.9% (100 ml) 100 ML 345 MG IV (10:49)
[2022-05-26 12:14] VITALS: BP 162/90; PULSE 77; TEMP 37; O2SAT 96
[2022-06-03] MEDS: ferric carboxy (IVPB) 750 MG in sodium chloride 0.9% (100 ml) 100 ML 345 MG IV (07:44)
[2022-06-03] MEDS: sodium chloride 0.9% 250 ML 500 ML IV (08:03)
[2022-06-03 09:33] VITALS: BP 120/71; PULSE 70; RESP 18; TEMP 36.1; O2SAT 96
[2022-06-09 08:34] LABS: Basophils # 0.1 10^3/uL (0.0-0.1); Basophils % 0.4 %; Eosinophils # 0.1 10^3/uL (0.0-0.8); Eosinophils % 0.3 %; Hematocrit 33.1 % (42.0-52.0); Hemoglobin 10.5 g/dL (11.7-16.6); Lymphocytes # 1.3 10^3/uL (0.8-4.8); Lymphocytes % 6.6 %; Mean Corpuscular HGB Conc 31.7 g/dL (30.0-36.0); Mean Corpuscular Volume 85.1 fl (80-94); Mean Platelet Volume 9.2 fL (7.4-10.4); Monocytes # 1.5 10^3/uL (0.2-0.9); Monocytes % 7.9 %; Neutrophils # 15.65 10^3/uL (1.8-7.7); Neutrophils % 82.6 %; Nucleated Red Blood Cells % 0 %; Platelet Count 576 10^3/cmm (130-400); Red Blood Count 3.89 10^6/uL (4.1-5.3); Red Cell Distribution Width 20.1 % (12.1-15.1); White Blood Count 18.9 10^3/uL (4.0-10.0)
[2022-06-09 08:57] LABS: Alanine Aminotransferase 17 U/L (0-41); Albumin Level 2.4 g/dL (3.5-5.2); Alkaline Phosphatase 263 U/L (40-130); Anion Gap 10.8 (5-19); Aspartate Amino Transferase 17 U/L (0-40); Blood Urea Nitrogen 17 mg/dL (8-23); Calcium 7.6 mg/dL (8.5-10.5); Carbon Dioxide 24 mmol/L (22-29); Chloride 105 mmol/L (98-107); Glomerular Filtration Rate 97.3 mL/min (90-130); Glucose 98 mg/dL (65-115); Osmolality Calculated 284 mOsm/kg (285-295); Potassium 3.8 mmol/L (3.5-5.1); Sodium 136 mmol/L (136-145); Total Bilirubin 0.5 mg/dL (0.15-1.2); Total Protein 5.4 g/dL (6.6-8.7)
[2022-06-09] MEDS: sodium chloride 0.9% 500 ML 999 ML IV (08:57)
[2022-06-09] MEDS: dexamethasone 10 mg/mL INJ 5 MG IVP (08:57)
[2022-06-09] MEDS: ondansetron 2 mg/ML SDV 2 mL 8 MG IVP (08:57)
[2022-06-09 09:03] VITALS: BP 120/72; PULSE 76
== END 2022-06-12 23:59 | disposition home or self-care (01) ==
PROVIDERS: PCP Family Medicine; Visit Provider Internal Medicine Medical Oncology
DX: C16.0 Malignant neoplasm of cardia (principal); C77.8 Secondary and unspecified malignant neoplasm of lymph nodes of multiple regions; M79.604 Pain in right leg; R47.81 Slurred speech; E86.0 Dehydration; R63.8 Other symptoms and signs concerning food and fluid intake; D50.9 Iron deficiency anemia, unspecified; Z79.899 Other long term (current) drug therapy; Z92.21 Personal history of antineoplastic chemotherapy; Z92.25 Personal history of immunosuppression therapy
CPT/HCPCS: 80053; 83540; 83550; 85025; 96365; 96366; 96375; 96523; 99215; J1100; J1439; J2405; J7030; J7040; J7050

== ENCOUNTER 2022-06-11 09:24 | Day surgery (SDC) | payer MEDICARE, SELFPAY ==
[2022-06-09 12:32] VITALS: BMI 21.1
--- NOTE | 2022-06-11 09:35 | US_ITS ---
NOTE: Report was unsigned for reason: Ordering provider was edited. Original Signature date and time was: 06/11/2022 1318 WS: [id number] ULTRASOUND-GUIDED THERAPEUTIC PARACENTESIS Procedure, risks, and complications have been explained to the patient. Consent is obtained. Utilizing aseptic technique and 1% buffered lidocaine, a small dermatome was made through which a 5 [place] Yueh catheter was inserted. Approximately 4700 ml of light yellow peritoneal fluid was obtained without difficulty. No complications encountered. [facility] US/US paracentesis abd w [id number] IMPRESSION: Uncomplicated paracentesis yielding 4700 ml of peritoneal fluid.
[2022-06-11 09:52] VITALS: BP 125/70; PULSE 74; RESP 20; TEMP 36.7; O2SAT 100
[2022-06-11 11:29] VITALS: BP 129/72
[2022-06-11 11:46] VITALS: BP 118/62
== END 2022-06-11 11:51 | disposition home or self-care (01) ==
LOC: GILAB 09:29
PROVIDERS: Radiology Diagnostic Radiology; PCP Family Medicine; Visit Provider Surgery
PROC: (CPT 49082; principal; 2022-06-11 10:45)
DX: R18.8 Other ascites (principal); C16.9 Malignant neoplasm of stomach, unspecified
CPT/HCPCS: 36415; 49083; 85610

== ENCOUNTER 2022-06-11 23:11 | Emergency (ER) | payer MEDICARE, SELFPAY ==
[2022-06-11 23:22] VITALS: BP 116/76; PULSE 88; RESP 18; TEMP 36.3; O2SAT 97; BMI 20.3
--- NOTE | 2022-06-11 23:57 | W.ED.ABDPA2 ---
HPI - Abdominal Pain General: Chief Complaint: Abdominal Pain Stated Complaint: Severe abd pain Time Seen by Provider: 06/11/22 23:48 Source: patient and family Mode of arrival: ambulatory Limitations: no limitations History of Present Illness: Patient presents emergency department today for evaluation treatment of acute on chronic abdominal pain. Patient has known history of gastric cancer for which he is seen and followed by his specialist. Patient had a paracentesis today where they removed 4700 mL without any difficulties. Patient indicates he had no pain during his procedure and had no significant pain at the insertion site of the needle in his right abdomen. Patient continues to have no pain in that area and states the pain he is having is in the same area as his typical abdominal pain secondary to his cancer. indicated that the patient was in so much pain today he was crying. Patient has p.o. Dilaudid at home which he indicated he took a dose approximately 2 hours before arriving here in the ER but, presents as he was told to come in for acute worsening in his abdominal pains. Patient denies any known fevers. He has had some nausea but no vomiting as he is not able to eat anything. Associated Symptoms: Reports nausea Review of Systems General: Reports: 10 or more systems reviewed and unremarkable except in HPI and below GI: Reports: abdominal pain (known gastric cancer) and nausea PFSH ED PFSH: Medical History Neri's esophagus with esophagitis COPD (chronic obstructive pulmonary disease) CVA (cerebral vascular accident) Diverticulosis Duodenitis Dysphagia as late effect of cerebrovascular disease Esophageal stricture GERD (gastroesophageal reflux disease) Iron deficiency anemia Surgical History History of cholecystectomy History of eye surgery History of spinal surgery Family History Brother Cancer Sister Cancer Father Stroke Grandmother Stroke Social History Smoking and tobacco status: current every day smoker cigarettes Packs smoked per day: 1 Alcohol intake: never Physical Exam Const: COMMON NORMALS: patient oriented x3 and alert; apparent distress (obviously uncomfortable) HENMT: COMMON NORMALS: normocephalic, atraumatic, hearing grossly normal bilaterally and moist oral mucous membranes HEAD & SCALP: normocephalic and atraumatic Eye: EYELID: eyelid abnormality (ptosis) right upper eyelid Neck/C-Spine: COMMON NORMALS: full ROM and no JVD Lymph: LYMPHATIC: no lymphadenopathy noted Resp: COMMON NORMALS: normal respiratory effort, No retractions, No use of accessory muscles and clear to auscultation bilaterally AUSCULTATION: clear to auscultation bilaterally Cardio: COMMON NORMALS: no JVD, regular rate and regular rhythm RATE: regular rate RHYTHM: regular rhythm GI: OTHER: Patient is profusely tender to any pressure in his abdomen-especially around the periumbilical region. Patient has an obvious puncture site to the right lateral abdomen covered with Tegaderm that shows no signs of acute swelling, redness, or bleeding : COMMON NORMALS: Yes no CVA tenderness BLADDER/KIDNEY EXAM: Yes no CVA tenderness Back/Pelvis: COMMON NORMALS: no CVA tenderness, no thoracic nor lumbar tenderness and thoraco-lumbar ROM normal Extremity: COMMON NORMALS: normal to inspection, full ROM and capillary refill normal Neuro: COMMON NORMALS: patient oriented x3 SENSORIUM/ORIENTATION: Yes alert Psych: COMMON NORMALS: mental status grossly normal, Normal thought process present, cooperative, normal affect and activity/motor behavior normal THOUGHT PROCESS: Normal thought process present Skin: COMMON NORMALS: no rashes or lesions noted GENERAL SKIN EXAM: no rashes or lesions noted Course Vital Signs: Vital signs: Vital Signs Temperature 97.4 F L 06/11/22 23:22 Pulse Rate 88 06/11/22 23:22 Respiratory Rate 18 06/12/22 02:40 Blood Pressure 116/76 06/11/22 23:22 Pulse Oximetry 100 06/12/22 02:40 MDM - Abdominal Pain Medical Decision Making Patient presented to the emergency department today for evaluation treatment of acute on chronic abdominal pain. Patient underwent paracentesis today without any difficulty and no documented issues with the procedure. Patient indicates that his pain is secondary to his history of gastric cancer and does not feel there was any issue with his procedure today. Patient has taken his p.o. Dilaudid at home without improvement of his pain and presents to the ER today. After discussing with Dr. Newberry, he recommended IV Dilaudid for pain control here in the ER. Basic lab work was obtained and was found to have an elevated white blood cell count. Patient had a white blood cell count of 18 several days ago and a couple weeks ago had a much lower white blood cell count. After discussing with Dr. Newberry he recommended a CT examination. I discussed this finding with the patient and family as well as the recommendation for CT scanning and they did agree to proceed. While waiting for the results, patient began having return of his abdominal pains-patient had been able to rest and sleep briefly after receiving Dilaudid IV upon arrival. Second dose of Dilaudid given at the approval of Dr. Newberry. Patient CT examination is consistent with progressive worsening of patient's cancer. CT was compared to previous CT in February and radiology notes the gastric mass is significantly larger with progressive metastatic disease now stage IV. He notes progression now into the periesophageal area, liver, mesentery with omental and peritoneal carcinomatosis. He notes diffuse third spacing of malignant ascites even though patient had 4700 mL removed today. I did go back and discussed this with the patient and the family. Explained that this is most likely why the patient's pain medication is no longer controlling his pain. As expected, both the patient and family are very upset. We had a very long discussion regarding other options for treatment to better control pain and, treatment that can be done at home as both the patient and the family indicate they do not like having to come to the emergency room so often. The patient asked me how long he had to live and I explained to him that it is different for everyone-some people wish to try every treatment possible however, patient states he is done and does not want to be in pain any longer. I encouraged him to have a the discussion regarding his wishes with his family and his doctor and assured him that I I was sure his family and doctor would be supportive of his choices. After talking to Dr. Newberry, it was recommended that the patient double up on his Dilaudid through the weekend and reach out to his doctor first thing at the beginning of the week. However, did offer return to the emergency department at any time for the patient for any acute concerns. Differential Diagnosis Likely abdominal pain (cancer, puncture wound, organ injury, abdominal infection, internal bleeding); Unlikely constipation, gastroenteritis, pancreatitis or small bowel obstruction Lab Data 06/12/22 00:04 06/12/22 00:04 Labs/Radiology: Radiology Impressions Abdomen/Pelvis CT 06/12/22 01:13 IMPRESSION: 1. Compared to 02/22/2022, the findings have progressed markedly. The gastric mass is much larger, and there is progressive widespread metastatic disease with stage IV cancer present. There is now disease in the periesophageal area, the liver, in the mesentery with evidence of omental and peritoneal carcinomatosis. 2. Progressive diffuse 3rd spacing of fluid with probably malignant ascites. 3. No small bowel obstruction, abscess or free air. 4. Concerning and ominous findings. COMMENTS: Consistent with the [employer]'s Incidental Findings Committee white paper (J Am Garry Radiol 2018): Any incidental renal lesion less than 1 cm or classified as too small to characterize, or any incidental cystic renal lesion characterized as simple-appearing, is likely benign. No follow-up imaging is recommended for these lesions per consensus recommendations based on imaging criteria. Laboratory Results WBC 23.5 10^3/uL (4.0-10.0) H 06/12/22 00:04 RBC 3.95 10^6/uL (4.1-5.3) L 06/12/22 00:04 Hgb 10.7 g/dL (11.7-16.6) L 06/12/22 00:04 Hct 33.9 % (42.0-52.0) L 06/12/22 00:04 MCV 85.8 fl (80-94) 06/12/22 00:04 MCH 27.1 pg (28.0-34.0) L 06/12/22 00:04 MCHC 31.6 g/dL (30.0-36.0) 06/12/22 00:04 RDW 20.6 % (12.1-15.1) H 06/12/22 00:04 Plt Count 617 10^3/cmm (130-400) H 06/12/22 00:04 MPV 9.4 fL (7.4-10.4) 06/12/22 00:04 Neut % (Auto) 85.8 % 06/12/22 00:04 Lymph % (Auto) 6.2 % 06/12/22 00:04 [place] % (Auto) 6.4 % 06/12/22 00:04 Eos % (Auto) 0.1 % 06/12/22 00:04 Baso % (Auto) 0.3 % 06/12/22 00:04 Neut # (Auto) 20.19 10^3/uL (1.8-7.7) H 06/12/22 00:04 Lymph # (Auto) 1.5 10^3/uL (0.8-4.8) 06/12/22 00:04 [place] # (Auto) 1.5 10^3/uL (0.2-0.9) H 06/12/22 00:04 Eos # (Auto) 0.0 10^3/uL (0.0-0.8) 06/12/22 00:04 Baso # (Auto) 0.1 10^3/uL (0.0-0.1) 06/12/22 00:04 Nucleated RBC % (auto) 0 % 06/12/22 00:04 Nucleated RBCs # 0.0 /100WBC 06/12/22 00:04 Sodium 135 mmol/L (136-145) L 06/12/22 00:04 Potassium 4.0 mmol/L (3.5-5.1) 06/12/22 00:04 Chloride 105 mmol/L (98-107) 06/12/22 00:04 Carbon Dioxide 24 mmol/L (22-29) 06/12/22 00:04 Anion Gap 10.0 (5-19) 06/12/22 00:04 BUN 18 mg/dL (8-23) 06/12/22 00:04 Creatinine 0.6 mg/dL (0.7-1.2) L 06/12/22 00:04 GFR Calculation 135.6 mL/min (90-130) H 06/12/22 00:04 Glucose 101 mg/dL (65-115) 06/12/22 00:04 Calculated Osmolality 282 mOsm/kg (285-295) L 06/12/22 00:04 Calcium 7.4 mg/dL (8.5-10.5) L 06/12/22 00:04 Total Bilirubin 0.4 mg/dL (0.15-1.2) 06/12/22 00:04 AST 18 U/L (0-40) 06/12/22 00:04 ALT 18 U/L (0-41) 06/12/22 00:04 Alkaline Phosphatase 257 U/L (40-130) H 06/12/22 00:04 Total Protein 5.4 g/dL (6.6-8.7) L 06/12/22 00:04 Albumin 2.3 g/dL (3.5-5.2) L 06/12/22 00:04 Globulin 3.1 g/dL (1.3-4.6) 06/12/22 00:04 Discharge Plan Discharge Patient Disposition: Home Clinical Impression: Adenocarcinoma of gastric cardia, Abdominal pain Condition: Stable Prescriptions: No Action trazodone 100 mg tablet 100 mg PO BEDTIME hydromorphone 4 mg tablet 4 - 8 mg PO Q4H PRN (Reason: pain) 15 Days Qty: 120 0RF atorvastatin 40 mg tablet 80 mg PO BEDTIME Qty: 60 3RF Anoro Ellipta 62.5-25 mcg/actuation blister with device 1 inh inhalation DAILY sennosides-docusate sodium [Senokot-S] 8.6-50 mg tablet 1 tab-cap PO BID PRN (Reason: constipation) Qty: 60 2RF ondansetron 8 mg tablet,disintegrating 8 mg PO Q6H PRN (Reason: nausea and vomiting) Qty: 30 2RF lorazepam 1 mg tablet 0.5 - 1 mg PO Q6H PRN (Reason: Severe Nausea) Qty: 30 3RF lidocaine HCl [Lidocaine Viscous] 2 % solution 1 applic mucous membrane TID PRN (Reason: pain) Qty: 80 0RF Rx Instructions: add to Maalox 80ml and benadryl 80ml, swish and swallow chlorpromazine 25 mg tablet 25 mg PO Q6H PRN (Reason: Hiccups) Qty: 90 2RF clopidogrel 75 mg Tablet 75 mg PO DAILY Qty: 30 0RF oxycodone 15 mg tablet 15 - 30 mg PO Q4H PRN (Reason: Pain) dronabinol [Marinol] 5 mg capsule 5 mg PO BID PRN (Reason: Nausea) Rx Instructions: administer before lunch and evening meal/dinner omeprazole 20 mg capsule,delayed release(DR/EC) 40 mg PO BID Rx Instructions: Take 2 capsules by mouth twice daily ferrous sulfate [iron] 325 mg (65 mg iron) Tablet 325 mg PO BID Discharge Orders: Discharge ED (Routine); Ordered 06/12/22 Ordered By: Shruthi Lacey Referrals: Gamaliel Alcazar MD [Primary Care Provider] - Discharge Diet: Advance as tolerated Discharge Activity: Increase activity as tolerated Patient Instructions: Abdominal Pain (ED) Activity Restrictions/Additional Instructions: Lab work today showed an increase in the patient's white blood cell count though all other lab work appears to be stable from several days ago. We did obtain a CT examination given this elevated white blood cell count and unfortunately, there is a significant progression of the cancer now invading the liver and omentum. This is most likely why the patient's pain has noticeably worsened and does not appear well controlled with the pain medication he currently has. Through the weekend, we do recommend doubling up on the pain medication and getting into see his doctor soon as possible next week to discuss different treatment course which could involve treatment at home with stronger pain medication as the patient has indicated he would like. However, for any reason through the weekend the patient needs to return to the ER, we would be happy to accommodate him here. Coding Level of Care Code ED [employer] Rep[employer] Operator for [employer] Fwd Exam Comprehensive
[2022-06-12] VITALS (8 sets, daily range): BP systolic 123–153; BP diastolic 70–88; PULSE 62–79; RESP 15–19; O2SAT 97–100
[2022-06-12] MEDS: HYDROmorphone 1 mg/mL INJ 1 mL IVP ×2 (00:07→02:40)
[2022-06-12 00:20] LABS: Basophils # 0.1 10^3/uL (0.0-0.1); Basophils % 0.3 %; Eosinophils % 0.1 %; Hematocrit 33.9 % (42.0-52.0); Hemoglobin 10.7 g/dL (11.7-16.6); Lymphocytes # 1.5 10^3/uL (0.8-4.8); Lymphocytes % 6.2 %; Mean Corpuscular HGB Conc 31.6 g/dL (30.0-36.0); Mean Corpuscular Hemoglobin 27.1 pg (28.0-34.0); Mean Corpuscular Volume 85.8 fl (80-94); Mean Platelet Volume 9.4 fL (7.4-10.4); Monocytes # 1.5 10^3/uL (0.2-0.9); Monocytes % 6.4 %; Neutrophils # 20.19 10^3/uL (1.8-7.7); Neutrophils % 85.8 %; Nucleated Red Blood Cells % 0 %; Platelet Count 617 10^3/cmm (130-400); Red Blood Count 3.95 10^6/uL (4.1-5.3); Red Cell Distribution Width 20.6 % (12.1-15.1); White Blood Count 23.5 10^3/uL (4.0-10.0)
[2022-06-12 00:39] LABS: Alanine Aminotransferase 18 U/L (0-41); Albumin Level 2.3 g/dL (3.5-5.2); Alkaline Phosphatase 257 U/L (40-130); Aspartate Amino Transferase 18 U/L (0-40); Blood Urea Nitrogen 18 mg/dL (8-23); Calcium 7.4 mg/dL (8.5-10.5); Carbon Dioxide 24 mmol/L (22-29); Chloride 105 mmol/L (98-107); Globulin 3.1 g/dL (1.3-4.6); Glomerular Filtration Rate 135.6 mL/min (90-130); Glucose 101 mg/dL (65-115); Osmolality Calculated 282 mOsm/kg (285-295); Sodium 135 mmol/L (136-145); Total Bilirubin 0.4 mg/dL (0.15-1.2); Total Protein 5.4 g/dL (6.6-8.7)
--- NOTE | 2022-06-12 01:13 | CTR_ITS ---
PROCEDURE INFORMATION: Exam: CT Abdomen And Pelvis With Contrast Exam date and time: 06/12/2022 1:25 AM Age: 66 years old Clinical indication: Abdominal pain; Generalized; Prior surgery; Surgery date: Post-operative (0-2 days); Surgery type: Paracentesis 06/11/2022; Additional info: Abdominal pain, current gastric cancer, elevated wbc 24. Gfr 135, creat 0.6 TECHNIQUE: Imaging protocol: Computed tomography of the abdomen and pelvis with contrast. Radiation optimization: All CT scans at this facility use at least one of these dose optimization techniques: automated exposure control; mA and/or kV adjustment per patient size (includes targeted exams where dose is matched to clinical indication); or iterative reconstruction. Contrast material: OMNI 350; Contrast volume: 80 ml; Contrast route: INTRAVENOUS (IV); COMPARISON: CT abdomen pelvis w con* [id number] 02/22/2022 3:48 PM RADIATION DOSE METRICS: Total DLP (mGy-cm): 394.28 FINDINGS: Lungs: Mild lung base atelectasis or scarring. Mediastinal space: A few periesophageal lymph nodes measure up to 1.9 cm. Diaphragm: Small hiatal hernia. Liver: New enhancing liver lesions measure up to about 1.9 cm. Gallbladder and bile ducts: Absent gallbladder. Pancreas: Unremarkable with no suspicious mass. No ductal dilation. Spleen: The spleen is not enlarged. No suspicious enhancing mass is noted. Adrenal glands: Minor bilateral adrenal nodularity is similar. Kidneys and ureters: No solid renal mass or hydronephrosis. Few minute right renal cyst. Stomach and bowel: A very large gastric mass is visualized, measuring up to 7.5 cm. Adjacent contiguous spread is very likely. Appendix: Normal appendix. Intraperitoneal space: New mild ascites. Progressive diffuse mesenteric edema and omental/peritoneal nodularity. Progressive retroperitoneal lymphadenopathy. [id number] pelvic free fluid. Vasculature: Advanced diffuse vascular calcification noted. Lymph nodes: Multiple adjacent large nodes are present in the upper abdomen measuring up to about 3.3 cm. Urinary bladder: Unremarkable as visualized. Reproductive: Large nodular prostate. Bones/joints: Unchanged few nonspecific small osseous sclerotic foci. No compression fracture has developed. Soft tissues: No acute or suspicious finding noted. CT/CT abdomen pelvis w con* [id number] IMPRESSION: 1. Compared to 02/22/2022, the findings have progressed markedly. The gastric mass is much larger, and there is progressive widespread metastatic disease with stage IV cancer present. There is now disease in the periesophageal area, the liver, in the mesentery with evidence of omental and peritoneal carcinomatosis. 2. Progressive diffuse 3rd spacing of fluid with probably malignant ascites. 3. No small bowel obstruction, abscess or free air. 4. Concerning and ominous findings. COMMENTS: Consistent with the [employer]'s Incidental Findings Committee white paper (J Am Garry Radiol 2018): Any incidental renal lesion less than 1 cm or classified as too small to characterize, or any incidental cystic renal lesion characterized as simple-appearing, is likely benign. No follow-up imaging is recommended for these lesions per consensus recommendations based on imaging criteria.
[2022-06-12] MEDS: iohexol 350 mg/mL 500 mL Btl (per mL) IV (01:40)
== END 2022-06-12 03:40 | disposition home or self-care (01) ==
PROVIDERS: Emergency Provider Physician Assistant; PCP Family Medicine
DX: C16.0 Malignant neoplasm of cardia (principal); R10.9 Unspecified abdominal pain; Z79.02 Long term (current) use of antithrombotics/antiplatelets; F17.210 Nicotine dependence, cigarettes, uncomplicated; J44.9 Chronic obstructive pulmonary disease, unspecified; Z86.73 Personal history of transient ischemic attack (TIA), and cerebral infarction without residual deficits
CPT/HCPCS: 74177; 80053; 85025; 96374; 96376; 99285; J1170; Q9967

== ENCOUNTER 2022-06-16 10:09 | Oncology outpatient (recurring) (ONCR) | payer MEDICARE, SELFPAY ==
[2022-06-16 10:50] VITALS: BP 104/62; PULSE 49; RESP 15; TEMP 36.4; O2SAT 91
[2022-06-16] MEDS: sodium chloride 0.9% 500 ML 999 ML IV (11:41)
== END 2022-07-13 23:59 | disposition home or self-care (01) ==
PROVIDERS: PCP Family Medicine; Visit Provider Internal Medicine Medical Oncology
DX: C16.0 Malignant neoplasm of cardia (principal); C77.8 Secondary and unspecified malignant neoplasm of lymph nodes of multiple regions; R18.8 Other ascites; G89.3 Neoplasm related pain (acute) (chronic); Z79.891 Long term (current) use of opiate analgesic; Z79.899 Other long term (current) drug therapy; Z86.73 Personal history of transient ischemic attack (TIA), and cerebral infarction without residual deficits
CPT/HCPCS: 96365; 99214; J7040